=== PATIENT | female | born 1975 | race Caucasian/White ===

== ENCOUNTER 2023-10-14 11:40 | Emergency (ER) | payer OTHER, SELFPAY ==
[2023-10-14] VITALS (12 sets, daily range): BP systolic 123–141; BP diastolic 59–110; PULSE 70–100; RESP 20–28; TEMP 36.4–36.8; O2SAT 97–100
--- NOTE | 2023-10-14 11:44 | ECG_ITS ---
Measurements Intervals [place] Rate: 107 P: 59 TN: 136 QRS: 4 QRSD: 94 T: 46 QT: 358 QTc: 478 Interpretive Statements SINUS TACHYCARDIA ABNORMAL RHYTHM ECG BASELINE ARTIFACT PRESENT NO PREVIOUS ECG AVAILABLE FOR COMPARISON Electronically Signed On 10-14-2023 17:16:43 FILTER CLEANER by Ruth Pedraza M.D.
--- NOTE | 2023-10-14 12:02 | ED.ABDPAIN ---
HPI - Abdominal Pain General Chief Complaint: Abdominal Pain Stated Complaint: abdominal pain Time Seen by Provider: 10/14/23 11:44 Source: patient and family Mode of arrival: ambulatory Limitations: no limitations History of Present Illness HPI narrative: Patient is a 48-year-old diabetic type 2 using new injectable medicine as well as insulin. She took her injection last night around 1:30 a.m. and started with the abdominal pain and nausea. She is having pain across her chest abdomen area since the injection. The injection name is ItzMichael YOUNGER elicited complaint: abdominal pain Onset (ago): hour(s) (10) Pain Consistency: constant Location: chest, epigastric, LUQ, RUQ, RLQ and LLQ Severity: moderate Pain scale (0-10): 8 Quality: cramping, aching and sharp Radiation: none Migration to: no migration Exacerbating factors: nothing Relieving factors: nothing Context: confirms other ( patient has been using injection for 3 weeks) Associated symptoms: nausea and vomiting Related Data Patient : No Allergies Allergy/AdvReac Type Severity Reaction Status Date / Time No Known Allergies Allergy Verified 10/14/23 11:59 Review of Systems Review of Systems: All systems reviewed & are unremarkable except as noted in HPI and below Constitutional: Constitutional: Reports no additional constitutional complaints Eyes: Eyes: Reports no additional eye complaints ENT: Reports system reviewed and no additional complaints, except as documented Cardiovascular: Cardiovascular: Reports no additional cardiovascular complaints Respiratory: Respiratory: Reports no additional respiratory complaints Gastrointestinal: Gastrointestinal: Reports no additional gastrointestinal complaints Genitourinary: Genitourinary: Reports no additional female genitourinary complaints Musculoskeletal: Musculoskeletal: Reports no additional musculoskeletal complaints Integumentary/Breasts: Skin/Breast: Reports system reviewed and no additional complaints, except as docu Neurologic: Reports system reviewed and no additional complaints, except as documented Psychiatric: Psychiatric: Reports no additional psychiatric complaints Endocrine: Endocrine: Reports no additional endocrine complaints Hematologic/Lymphatic: Hematologic/Lymphatic: Reports no additional hematologic/lymphatic complaints Allergic/Immunologic: Allergic/Immunologic: Reports no additional allergic/immunologic complaints Exam Const: General: ill appearing Nutritional Appearance: well nourished Orientation/consciousness: patient oriented x3 Limitations: no limitations HENMT: Head: normal to inspection Ears: external ears normal Face/Nose/Sinus: Normal external nose present Eyes: Conjunctivae: conjunctivae normal Pupils: Equal, round and reactive pupils present EOM: EOMs intact bilaterally Neck: Neck: normal visual inspection Chest: Chest palpation & inspection: normal inspection of the chest Resp: Effort & Inspection: normal respiratory effort and not labored Auscultation: clear to auscultation bilaterally and no crackles Cardio: Rate: regular rate Rhythm: regular rhythm Heart sounds: no murmurs GI: Inspection: distended GI Palp: Yes Soft to palpation, Yes Tenderness to palpation present (GI) (diffusely), No Guarding due to palpation present (GI), No Rigid due to palpation, No Hernia present, No Palpable mass present and No Rebound tenderness present Auscultation: bowels sounds not normal and Hypoactive bowel sounds present : General: Yes bladder normal to palpation Back/Spine/Pelvis: Back: no CVA tenderness Skin: General skin exam: normal color Rashes: no rashes Wounds: no wounds Neuro: General: patient oriented x3 Cranial nerves: Yes Nystagmus not present Speech: normal speech Extrem: General: normal to inspection Psych: Mental Status: mental status grossly normal Affect: normal affect Attitude: cooperative Course Vital Signs Vital signs: V
[2023-10-14] MEDS: MAG HYDROX/ALUMINUM HYD/SIMETH 30 ML, PHENobarb/HYOSCY/ATROPINE/SCOP 32.4 MG, LIDOCAINE... PO (12:06)
[2023-10-14] MEDS: KETOROLAC 30 MG/ML VIAL (*BKC) IV PUSH (12:07)
[2023-10-14] MEDS: ONDANSETRON INJ 4 MG/2 ML VIAL IV PUSH (12:07)
[2023-10-14 12:22] LABS: INR 0.9; Partial Thromboplastin Time 22.2 SEC (23.90-30.70); Prothrombin Time 10.4 Seconds (9.50-12.10)
[2023-10-14 12:25] LABS: Basophils Absolute Auto 0.06 K/mm3 (0.00-0.10); Basophils Percent Auto 0.7 % (0.0-1.0); Eosinophils Absolute Auto 0.11 K/mm3 (0.02-0.50); Eosinophils Percent Auto 1.3 % (1.0-6.0); Hematocrit 30.3 % (35.0-49.0); Hemoglobin 9.9 g/dL (12.0-15.0); Immature Granulocyte Absolute 0.02 K/mm3 (0.00-0.00); Immature Granulocyte Percent A 0.2 % (0.0-0.0); Lymphocytes Absolute Auto 2.84 K/mm3 (1.10-4.50); Lymphocytes Percent Auto 33.5 % (18.0-42.0); Mean Corpuscular HGB Conc 32.7 g/dL (32.0-36.0); Mean Corpuscular Hemoglobin 26.6 pg (27.0-31.0); Mean Corpuscular Volume 81.5 fL (78.0-102.0); Mean Platelet Volume 9.6 fl (9.2-11.8); Monocytes Absolute Auto 0.67 K/mm3 (0.10-0.90); Monocytes Percent Auto 7.9 % (2.0-11.0); Neutrophils Absolute Auto 4.8 K/mm3 (1.7-7.2); Neutrophils Percent Auto 56.4 % (50.0-70.0); Platelet Count Result 330 K/mm3 (150-420); Red Blood Count 3.72 M/mm3 (4.20-5.40); Red Cell Distribution Width 12.8 % (11.6-14.4); White Blood Count 8.5 K/mm3 (4.8-10.8)
[2023-10-14 12:26] LABS: Alanine Aminotransferase 26 U/L (14-59); Albumin Level 3.7 g/dL (3.4-5.0); Alkaline Phosphatase 68 U/L (46-116); Anion Gap 12 mmol/L (8-16); Aspartate Amino Transferase 23 U/L (15-37); Bilirubin,Total 0.4 mg/dL (0.00-1.00); Blood Urea Nitrogen 37 mg/dL (7-18); Calcium 9.3 mg/dL (8.5-10.1); Carbon Dioxide 27 mmol/L (21-32); Chloride 96 mmol/L (98-108); Estimated CRCL calculation 34 ml/min; Estimated Glomerular Filt Rate 27; Glucose 193 mg/dL (70-99); Lactic Acid Reflex 2.8 mmol/L (0.4-2.0); Lipase 75 U/L (16-77); Magnesium 2.4 mg/dL (1.8-2.4); Osmolality Calculated 293 mOsm/kg (285-295); Potassium 3.4 mmol/L (3.5-5.1); Sodium 135 mmol/L (136-145); Total Protein 8.2 g/dL (6.4-8.2); Troponin I 9.6 ng/L (0.00-60.4)
[2023-10-14] MEDS: SODIUM CHLORIDE 0.9% IV 1,000 ML 999 ML IV CONT (12:42)
[2023-10-14 12:52] LABS: SARS-CoV-2 RNA PCR Negative (Negative)
[2023-10-14 12:53] LABS: Influenza A QL RT-PCR Negative (Negative); Influenza B QL RT-PCR Negative (Negative); RSV RNA, RT-PCR Negative (Negative)
--- NOTE | 2023-10-14 13:02 | PC.NURSE ---
pt resting per cot comfortably, eye closed. iv fluids infusing without difficulty.
[2023-10-14 13:54] LABS: Anion Gap 9 mmol/L (8-16); Blood Urea Nitrogen 38 mg/dL (7-18); Calcium 8.7 mg/dL (8.5-10.1); Carbon Dioxide 30 mmol/L (21-32); Chloride 97 mmol/L (98-108); Estimated CRCL calculation 35 ml/min; Estimated Glomerular Filt Rate 29; Glucose 181 mg/dL (70-99); Osmolality Calculated 296 mOsm/kg (285-295); Potassium 3.4 mmol/L (3.5-5.1); Sodium 136 mmol/L (136-145)
[2023-10-14 14:02] LABS: Lactic Acid Reflex 1.3 mmol/L (0.4-2.0)
[2023-10-14] MEDS: POTASSIUM CHLORIDE 20 MEQ ER TABLET PO (14:18)
== END 2023-10-14 14:25 | disposition home or self-care (01) ==
PROVIDERS: Emergency Provider Emergency Medicine
DX: N17.9 Acute kidney failure, unspecified (principal); E86.0 Dehydration; R11.2 Nausea with vomiting, unspecified; T38.3X5A Adverse effect of insulin and oral hypoglycemic [antidiabetic] drugs, initial encounter; I25.10 Atherosclerotic heart disease of native coronary artery without angina pectoris; Z20.822 Contact with and (suspected) exposure to COVID-19
CPT/HCPCS: 36415; 80048; 80053; 83605; 83690; 83735; 84484; 85025; 85610; 85730; 87637; 93005; 96361; 96374; 96375; 99284; A9270; J1885; J2405; J7030

== ENCOUNTER 2024-01-04 08:51 | Outpatient (CLI) | payer OTHER, SELFPAY ==
[2024-01-04 09:19] LABS: Basophils Absolute Auto 0.08 K/mm3 (0.00-0.10); Eosinophils Absolute Auto 0.28 K/mm3 (0.02-0.50); Eosinophils Percent Auto 3.6 % (1.0-6.0); Hematocrit 28.8 % (35.0-49.0); Hemoglobin 8.4 g/dL (12.0-15.0); Immature Granulocyte Absolute 0.02 K/mm3 (0.00-0.00); Immature Granulocyte Percent A 0.3 % (0.0-0.0); Lymphocytes Absolute Auto 2.17 K/mm3 (1.10-4.50); Lymphocytes Percent Auto 27.6 % (18.0-42.0); Mean Corpuscular HGB Conc 29.2 g/dL (32-36); Mean Corpuscular Hemoglobin 21.1 pg (27.0-31.0); Mean Corpuscular Volume 72.2 fL (78.0-102.0); Mean Platelet Volume 8.8 fl (9.2-11.8); Monocytes Absolute Auto 0.61 K/mm3 (0.10-0.90); Monocytes Percent Auto 7.8 % (2.0-11.0); Neutrophils Absolute Auto 4.71 K/mm3 (1.70-7.20); Neutrophils Percent Auto 59.7 % (50.0-70.0); Platelet Count Result 359 K/mm3 (150-420); Red Blood Count 3.99 M/mm3 (4.20-5.40); Red Cell Distribution Width 16.1 % (11.6-14.4); White Blood Count 7.9 K/mm3 (4.8-10.8)
[2024-01-04 09:43] LABS: Creatinine Urine 32.94 mg/dL (40-278)
[2024-01-04 09:59] LABS: Alanine Aminotransferase 27 U/L (14-59); Albumin Level 3.1 g/dL (3.4-5.0); Alkaline Phosphatase 75 U/L (46-116); Anion Gap 8 mmol/L (8-16); Aspartate Amino Transferase 25 U/L (15-37); Bilirubin,Total 0.2 mg/dL (0.00-1.00); Blood Urea Nitrogen 26 mg/dL (7-18); Calcium 8.3 mg/dL (8.5-10.1); Carbon Dioxide 27 mmol/L (21-32); Chloride 100 mmol/L (98-108); Cholesterol 232 mg/dL (0-200); Estimated Glomerular Filt Rate 46; Glucose 288 mg/dL (70-99); HDL Direct 45 mg/dL (40-60); LDL Cholesterol Calculated 133 mg/dL (<130); Osmolality Calculated 295 mOsm/kg (285-295); Potassium 4.6 mmol/L (3.5-5.1); Sodium 135 mmol/L (136-145); Triglycerides 271 mg/dL (0-150)
[2024-01-04 10:00] LABS: Hemoglobin A1C > 13.7 % (<5.7); MALB Creatinine Ratio 442.6 mg/g (0-30); Microalbumin Urine Random 145.8 mg/L
[2024-01-04 10:19] LABS: Thyroid Stimulating Hormone Reflex 2.36 u/IU/mL (0.36-3.74)
[2024-01-07 07:24] LABS: Magnesium 2.4 mg/dL (1.8-2.4)
== END 2024-01-04 08:52 | disposition home or self-care (01) ==
LOC: CHSLAB 08:55
PROVIDERS: PCP Family Medicine; Visit Provider Family Medicine
DX: E11.9 Type 2 diabetes mellitus without complications (principal); I51.9 Heart disease, unspecified; M62.838 Other muscle spasm; E03.9 Hypothyroidism, unspecified
CPT/HCPCS: 36415; 80053; 80061; 82043; 83036; 83735; 84443; 85025

== ENCOUNTER 2024-01-31 12:22 | Outpatient (CLI) | payer OTHER, SELFPAY | END 2024-01-31 12:23 | disposition home or self-care (01) | LOC: CHSIMG 12:25 | PROVIDERS: PCP Family Medicine; Visit Provider Family Medicine | DX: M25.562 Pain in left knee (principal); M25.561 Pain in right knee | CPT/HCPCS: 73562 ==

== ENCOUNTER 2024-03-12 07:56 | Outpatient (CLI) | payer OTHER, SELFPAY ==
[2024-03-12 08:35] LABS: Basophils Absolute Auto 0.07 K/mm3 (0.00-0.10); Eosinophils Absolute Auto 0.31 K/mm3 (0.02-0.50); Eosinophils Percent Auto 4.5 % (1.0-6.0); Hemoglobin 12.2 g/dL (12.0-15.0); Immature Granulocyte Absolute 0.02 K/mm3 (0.00-0.00); Immature Granulocyte Percent A 0.3 % (0.0-0.0); Lymphocytes Absolute Auto 2.68 K/mm3 (1.10-4.50); Lymphocytes Percent Auto 38.8 % (18.0-42.0); Mean Corpuscular HGB Conc 32.1 g/dL (32-36); Mean Corpuscular Hemoglobin 26.9 pg (27.0-31.0); Mean Corpuscular Volume 83.9 fL (78.0-102.0); Mean Platelet Volume 9.7 fl (9.2-11.8); Monocytes Absolute Auto 0.54 K/mm3 (0.10-0.90); Monocytes Percent Auto 7.8 % (2.0-11.0); Neutrophils Absolute Auto 3.28 K/mm3 (1.70-7.20); Neutrophils Percent Auto 47.6 % (50.0-70.0); Platelet Count Result 229 K/mm3 (150-420); Red Blood Count 4.53 M/mm3 (4.20-5.40); Red Cell Distribution Width 22.1 % (11.6-14.4); White Blood Count 6.9 K/mm3 (4.8-10.8)
[2024-03-12 08:38] LABS: Hemoglobin A1C 10.8 % (<5.7)
[2024-03-12 09:18] LABS: Alanine Aminotransferase 77 U/L (14-59); Albumin Level 3.7 g/dL (3.4-5.0); Alkaline Phosphatase 78 U/L (46-116); Anion Gap 9 mmol/L (4-12); Aspartate Amino Transferase 38 U/L (15-37); Bilirubin,Total 0.3 mg/dL (0.00-1.00); Blood Urea Nitrogen 40 mg/dL (7-18); Calcium 8.9 mg/dL (8.5-10.1); Carbon Dioxide 29 mmol/L (21-32); Chloride 96 mmol/L (98-108); Cholesterol 165 mg/dL (0-200); Estimated Glomerular Filt Rate 24; Glucose 334 mg/dL (70-99); HDL Direct 46 mg/dL (40-60); LDL Cholesterol Calculated 70 mg/dL (<130); Osmolality Calculated 300 mOsm/kg (285-295); Potassium 5.2 mmol/L (3.5-5.1); Sodium 134 mmol/L (136-145); Total Protein 7.6 g/dL (6.4-8.2); Triglycerides 243 mg/dL (0-150)
[2024-03-12 09:20] LABS: Thyroid Stimulating Hormone Reflex 3.44 u/IU/mL (0.36-3.74)
== END 2024-03-12 07:57 | disposition home or self-care (01) ==
LOC: CHSLAB 08:02
PROVIDERS: PCP Family Medicine; Visit Provider Internal Medicine Cardiovascular Disease
DX: E78.5 Hyperlipidemia, unspecified (principal)
CPT/HCPCS: 36415; 80053; 80061; 83036; 83735; 84443; 85025

== ENCOUNTER 2025-07-02 15:02 | Outpatient (CLI) | payer OTHER, SELFPAY ==
[2025-07-02 16:05] LABS: Alanine Aminotransferase 55 U/L (6-35); Albumin Level 3.9 g/dL (3.5-5.1); Alkaline Phosphatase 70 U/L (38-126); Aspartate Amino Transferase 51 U/L (14-36); Bilirubin,Total 0.8 mg/dL (0.2-1.3); Total Protein 6.4 g/dL (6.3-8.2)
[2025-07-02 16:09] LABS: Iron 155 ug/dL (37-170)
[2025-07-02 16:19] LABS: Percent Iron Saturation 53 % (20-50)
--- OUTSIDE RECORDS SUMMARY | 2025-07-02 16:36 | XMS_ITS | Encounter Summary ---
Author Organization [employer] Address [address] [place] [address] Care Team Providers Care Blow Off Worker Name Role Phone Jordon Dennis DO Primary Care Provider [phone] Encounter Details Date Type Department Care Team (Late st Contact Info) Description 03/27/2003 Outpatient Historical [facility] Internal Medicine [address] [place] [address] Chip Ruiz MD [address] [facility] [address] [place] [address] Social History Tobacco Use Types Packs/Day Years Used Date Smoking Tobacco: Never Assessed Comments Unknown Sex and Gender Information Value Date Recorded Sex Assigned at Female 08/29/2023 2:58 PM CERTIFIED NURSE MIDWIFE Legal Sex Female 1:55 AM CERTIFIED NURSE MIDWIFE Gender Identity Female 08/29/2023 2:58 PM CERTIFIED NURSE MIDWIFE Sexual Orientation Straight 08/29/2023 2: 58 PM CERTIFIED NURSE MIDWIFE documented as of this encounter Plan of Treatment Not on file documented as of this encounter Visit Diagnoses Not on filedocumented in this encounter Additional Health Concerns Infection Onset Date Last Indicated Resolved Time R/O C. diff 02/28/2024 02/28/2024 02/29/2024 8:13 AM CDT documented as of this encounter Care Teams Blow Off Worker Relationship Specialty Start Date End Date Jordon Dennis DO [address] [place] [address] PCP - General Family Practice 02/26/24 documented as of this encounter
--- OUTSIDE RECORDS SUMMARY | 2025-07-02 16:36 | XMS_ITS | Encounter Summary ---
Author Organization [email or web address] Address [address] [place] [address] Care Team Providers Care Pharmacist Per Diem Name Role Phone Jordon Dennis DO Primary Care Provider [phone] Encounter Details Date Type Department Care Team (Late st Contact Info) Description 03/27/2003 Outpatient Historical [facility] Internal Medicine [address] [place] [address] Chip Ruiz MD [address] [facility] [address] [place] [address] Social History Tobacco Use Types Packs/Day Years Used Date Smoking Tobacco: Never Assessed Comments Unknown Sex and Gender Information Value Date Recorded Sex Assigned at Female 08/29/2023 2:58 PM DIRECTOR OF EMPLOYEE DEVELOPMENT Legal Sex Female 1:55 AM DIRECTOR OF EMPLOYEE DEVELOPMENT Gender Identity Female 08/29/2023 2:58 PM DIRECTOR OF EMPLOYEE DEVELOPMENT Sexual Orientation Straight 08/29/2023 2: 58 PM DIRECTOR OF EMPLOYEE DEVELOPMENT documented as of this encounter Plan of Treatment Not on file documented as of this encounter Visit Diagnoses Not on filedocumented in this encounter Additional Health Concerns Infection Onset Date Last Indicated Resolved Time R/O C. diff 02/28/2024 02/28/2024 02/29/2024 8:13 AM CDT documented as of this encounter Care Teams Pharmacist Per Diem Relationship Specialty Start Date End Date Jordon Dennis DO [address] [place] [address] PCP - General Family Practice 02/26/24 documented as of this encounter
--- OUTSIDE RECORDS SUMMARY | 2025-07-02 16:36 | XMS_ITS | Clinical Summary ---
Author Organization [facility] Address [facility] [place] [address] Care Team Providers Care Cafeteria Team Leader Name Role Phone Himanshu Yarbrough MD Primary Care Provider [phone] Allergies Active Allergy Reactions Criticality Noted Date Comments Vancomycin Other (see comment) 07/17/2024 Red man syndrome Medications atorvastatin (LIPITOR) 40 MG tablet Take 2 tablets (80 mg total) by mouth daily. 4 Active carvedilol (COREG) 12.5 MG tablet Take 0.5 tablets (6.25 mg total) by mouth daily. 4 Active clopidogrel (PLAVIX) 75 MG tablet Take 1 tablet (75 mg total) by mouth daily. 4 Active ezetimibe (ZETIA) 10 MG tablet Take 1 tablet (10 mg total) by mouth daily. 4 Active fexofenadine (ANNABEL) 180 MG tablet Take 1 tablet (180 mg total) by mouth daily. Active aspirin EC (ECOTRIN) 81 MG tablet Take 1 tablet (81 mg total) by mouth daily. Active insulin glargine (LANTUS) 100 UNIT/ML injection (PEN) Inject 65 Units into the skin nightly at bedtime. Active vitamin B-12 (CYANOCOBALAMIN ) 1000 MCG tablet Take 2.5 tablets (2,500 mcg total) by mouth daily. Active gabapentin (NEURONTIN) 300 MG capsule Take 1 capsule (300 mg total) by mouth daily. Active HUMULIN 70/30 KWIKPEN (70-30) 100 UNIT/ML injection (pen) Use as directed 4 Active empagliflozin (JARDIANCE) 10 MG tablet Take 1 tablet (10 mg total) by mouth daily. Active losartan (COZAAR) 100 MG tablet Take 1 tablet (100 mg total) by mouth daily. Active levonorgestrel (MIRENA, 52 MG,) 20 MCG/DAY IUD 1 Intra Uterine Device by Intrauterine route once. Active pantoprazole EC (PROTONIX) 40 MG tablet Take 1 tablet (40 mg total) by mouth daily. Active spironolactone (ALDACTONE) 25 MG tablet Take 1 tablet (25 mg total) by mouth daily. Active torsemide (DEMADEX) 20 MG tablet Take 1 tablet (20 mg total) by mouth daily. Active Active Problems Problem Noted Date Diagnosed Date Lymphedema 01/25/2024 Social History Tobacco Use Types Packs/Day Years Used Date Smoking Tobacco: Never Smokeless Tobacco: Never Tobacco Cessation:Counseling Given: Not Answered Alcohol Use Standard Drinks/Week Comments Not Currently 0 (1 standard drink = 0.6 oz pur e alcohol) Comments No Sex and Gender Information Value Date Recorded Sex Assigned at Not on file Legal Sex Female 1:12 PM CDT Gender Identity Not on file Sexual Orientation Not on file Last Filed Vital Signs Vital Sign Reading Time Taken Comments Blood Pressure 155/79 07/24/2024 10:17 AM CDT Pulse 78 07/24/2024 10:17 AM CDT Temperature 36.4 C (97.6 F) 07/24/2024 10:02 AM CDT Respiratory Rate 16 07/24/2024 10:17 AM CDT Oxygen Saturation 99% 07/24/2024 10:17 AM CDT Inhaled Oxygen Concentration - - Weight 90.7 kg (200 lb) 07/18/2024 12:07 PM CDT Height 157.5 cm (5' 2) 07/18/2024 12:07 PM CDT Body Mass Index 36.58 07/18/2024 12:07 PM CDT Plan of Treatment Health Maintenance Due Date Last Done Comments Cervical Cancer Screening Pap Smear (Age 30 to 64) Every 3 Years 1976 Annual Physical 1979 Hepatitis C 1994 Hepatitis B Vaccines (2 of 3 - 19+ 3-dose series) 03/17/2005 02/17/2005 Cervical Cancer Screening Pap with HPV Testing (Age 30 to 64) Every 5 Years 2006 Cervical Cancer Screening with HPV 2006 COVID-19 Vaccine ( season) 2025 Mammogram Screening 09/10/2025 09/10/2023, 03/23/2021, 12/04/2018, Additional history exists DTaP, Tdap and Td Vaccines (2 - Td or Tdap) 08/30/2033 08/30/2023 Colorectal Cancer Screening Colonoscopy (10 Years) 07/24/2034 07/24/2024, 07/24/2024 Pneumococcal Vaccine: Pediatrics (0 to 5 Years) and At-Risk Patients (6 to 49 Years) Aged Out 08/30/2023 No longer eligible based on patient's age to complete this topic Meningococcal B Vaccine Aged Out No l onger eligible based on patient's age to complete this topic Meningococcal Vaccine Aged Out No elfego levar eligible based on patient's age to complete this topic RSV Immunizations Under 20 Months Aged Out No longer eligible based on patient's age to complete this topic Procedures Procedure Name Priority Date/Time Associated Diagnosis Comments COLONOSCOPY 07/24/2024 6:58 AM CDT from Last 3 Months or Most Recently Relevant to Health Maintenance Results * Colonoscopy (07/24/2024 6:58 AM CDT) Henok Bonilla MD GI PROCEDURE ORDERABLES Final Result from Last 3 Months or Most Recently Relevant to Health Maintenance [place] [address] [place] [address] Care Teams Cafeteria Team Leader Relationship Specialty Start Date End Date Himanshu Yarbrough MD [address] [place] [address] PCP - General INTERNAL MEDICINE 07/24/24
--- OUTSIDE RECORDS SUMMARY | 2025-07-02 16:36 | XMS_ITS | Encounter Summary ---
Author Organization [employer] Address [address] [place] [address] Care Team Providers Care Histopathology Technician Name Role Phone Jordon Dennis DO Primary Care Provider [phone] Encounter Details Date Type Department Care Team (Late st Contact Info) Description 03/27/2003 Outpatient Historical [facility] Internal Medicine [address] [place] [address] Chip Ruiz MD [address] [facility] [address] [place] [address] Social History Tobacco Use Types Packs/Day Years Used Date Smoking Tobacco: Never Assessed Comments Unknown Sex and Gender Information Value Date Recorded Sex Assigned at Female 08/29/2023 2:58 PM FRAME OPENER Legal Sex Female 1:55 AM FRAME OPENER Gender Identity Female 08/29/2023 2:58 PM FRAME OPENER Sexual Orientation Straight 08/29/2023 2: 58 PM FRAME OPENER documented as of this encounter Plan of Treatment Not on file documented as of this encounter Visit Diagnoses Not on filedocumented in this encounter Additional Health Concerns Infection Onset Date Last Indicated Resolved Time R/O C. diff 02/28/2024 02/28/2024 02/29/2024 8:13 AM CDT documented as of this encounter Care Teams Histopathology Technician Relationship Specialty Start Date End Date Jordon Dennis DO [address] [place] [address] PCP - General Family Practice 02/26/24 documented as of this encounter
--- OUTSIDE RECORDS SUMMARY | 2025-07-02 16:36 | XMS_ITS | Encounter Summary ---
Author Organization [employer] Address [address] [place] [address] Care Team Providers Care Cloth Finishing Range Operator Chief Name Role Phone Jordon Dennis DO Primary Care Provider [phone] Encounter Details Date Type Department Care Team (Late st Contact Info) Description 03/27/2003 Outpatient Historical [facility] Internal Medicine [address] [place] [address] Chip Ruiz MD [address] [facility] [address] [place] [address] Social History Tobacco Use Types Packs/Day Years Used Date Smoking Tobacco: Never Assessed Comments Unknown Sex and Gender Information Value Date Recorded Sex Assigned at Female 08/29/2023 2:58 PM SOIL SURVEYOR Legal Sex Female 1:55 AM SOIL SURVEYOR Gender Identity Female 08/29/2023 2:58 PM SOIL SURVEYOR Sexual Orientation Straight 08/29/2023 2: 58 PM SOIL SURVEYOR documented as of this encounter Plan of Treatment Not on file documented as of this encounter Visit Diagnoses Not on filedocumented in this encounter Additional Health Concerns Infection Onset Date Last Indicated Resolved Time R/O C. diff 02/28/2024 02/28/2024 02/29/2024 8:13 AM CDT documented as of this encounter Care Teams Cloth Finishing Range Operator Chief Relationship Specialty Start Date End Date Jordon Dennis DO [address] [place] [address] PCP - General Family Practice 02/26/24 documented as of this encounter
--- OUTSIDE RECORDS SUMMARY | 2025-07-02 16:36 | XMS_ITS | Encounter Summary ---
Author Organization [employer] Address [address] [place] [address] Care Team Providers Care Plasterer Apprentice Name Role Phone Jordon Dennis DO Primary Care Provider [phone] Encounter Details Date Type Department Care Team (Latest Contact Info) Description 03/27/2003 Outpatient Historical [facility], [address] Chip Ruiz MD [address] [place] [address] [place] [address] OTHER SPECIFIED HYPOGLYCEMIA (Primary Dx) Social History Tobacco Use Types Packs/Day Years Used Date Smoking Tobacco: Never Assessed Comments Unknown Sex and Gender Information Value Date Recorded Sex Assigned at Female 08/29/2023 2:58 PM HOTEL RESERVATION AGENT Legal Sex Female 1:55 AM HOTEL RESERVATION AGENT Gender Identity Female 08/29/2023 2:58 PM HOTEL RESERVATION AGENT Sexual Orientation Straight 08/29/2023 2: 58 PM HOTEL RESERVATION AGENT documented as of this encounter Plan of Treatment Not on file documented as of this encounter Visit Diagnoses Diagnosis Other specified hypoglycemia- Primary documented in this encounter Additional Health Concerns Infection Onset Date Last Indicated Resolved Time R/O C. diff 02/28/2024 02/28/2024 02/29/2024 8:13 AM CDT documented as of this encounter Care Teams Plasterer Apprentice Relationship Specialty Start Date End Date Jordon Dennis DO [address] [place] [address] PCP - General Family Practice 02/26/24 documented as of this encounter
--- OUTSIDE RECORDS SUMMARY | 2025-07-02 16:36 | XMS_ITS | Encounter Summary ---
Author Organization [employer] Address [address] [place] [address] Care Team Providers Care Urologist Name Role Phone Jordon Dennis DO Primary Care Provider [phone] Encounter Details Date Type Department Care Team (Late st Contact Info) Description 03/27/2003 Outpatient Historical [facility] Internal Medicine [address] [place] [address] Chip Ruiz MD [address] [facility] [address] [place] [address] Social History Tobacco Use Types Packs/Day Years Used Date Smoking Tobacco: Never Assessed Comments Unknown Sex and Gender Information Value Date Recorded Sex Assigned at Female 08/29/2023 2:58 PM CONTOUR BAND SAW OPERATOR VERTICAL Legal Sex Female 1:55 AM CONTOUR BAND SAW OPERATOR VERTICAL Gender Identity Female 08/29/2023 2:58 PM CONTOUR BAND SAW OPERATOR VERTICAL Sexual Orientation Straight 08/29/2023 2: 58 PM CONTOUR BAND SAW OPERATOR VERTICAL documented as of this encounter Plan of Treatment Not on file documented as of this encounter Visit Diagnoses Not on filedocumented in this encounter Additional Health Concerns Infection Onset Date Last Indicated Resolved Time R/O C. diff 02/28/2024 02/28/2024 02/29/2024 8:13 AM CDT documented as of this encounter Care Teams Urologist Relationship Specialty Start Date End Date Jordon Dennis DO [address] [place] [address] PCP - General Family Practice 02/26/24 documented as of this encounter
--- OUTSIDE RECORDS SUMMARY | 2025-07-02 16:36 | XMS_ITS | Encounter Summary ---
Author Organization [employer] Address [address] [place] [address] Care Team Providers Care Flask Handler Name Role Phone Jordon Dennis DO Primary Care Provider [phone] Encounter Details Date Type Department Care Team (Late st Contact Info) Description 03/27/2003 Outpatient Historical [facility] Internal Medicine [address] [place] [address] Chip Ruiz MD [address] [facility] [address] [place] [address] Social History Tobacco Use Types Packs/Day Years Used Date Smoking Tobacco: Never Assessed Comments Unknown Sex and Gender Information Value Date Recorded Sex Assigned at Female 08/29/2023 2:58 PM SUPPORT GROUP MANAGER Legal Sex Female 1:55 AM SUPPORT GROUP MANAGER Gender Identity Female 08/29/2023 2:58 PM SUPPORT GROUP MANAGER Sexual Orientation Straight 08/29/2023 2: 58 PM SUPPORT GROUP MANAGER documented as of this encounter Plan of Treatment Not on file documented as of this encounter Visit Diagnoses Not on filedocumented in this encounter Additional Health Concerns Infection Onset Date Last Indicated Resolved Time R/O C. diff 02/28/2024 02/28/2024 02/29/2024 8:13 AM CDT documented as of this encounter Care Teams Flask Handler Relationship Specialty Start Date End Date Jordon Dennis DO [address] [place] [address] PCP - General Family Practice 02/26/24 documented as of this encounter
--- OUTSIDE RECORDS SUMMARY | 2025-07-02 16:36 | XMS_ITS | Encounter Summary ---
Author Organization [employer] [facility] Address [address] [place] [address] Care Team Providers Care Panelbeater Name Role Phone Jordon Dennis DO Primary Care Provider [phone] Encounter Details Date Type Department Care Team (Late st Contact Info) Description 05/08/2003 Outpatient Historical [facility] Internal Medicine [address] [place] [address] Chip Ruiz MD [address] [facility] [address] [place] [address] Social History Tobacco Use Types Packs/Day Years Used Date Smoking Tobacco: Never Assessed Comments Unknown Sex and Gender Information Value Date Recorded Sex Assigned at Female 08/29/2023 2:58 PM SALT REFINER Legal Sex Female 1:55 AM SALT REFINER Gender Identity Female 08/29/2023 2:58 PM SALT REFINER Sexual Orientation Straight 08/29/2023 2: 58 PM SALT REFINER documented as of this encounter Plan of Treatment Not on file documented as of this encounter Visit Diagnoses Not on filedocumented in this encounter Additional Health Concerns Infection Onset Date Last Indicated Resolved Time R/O C. diff 02/28/2024 02/28/2024 02/29/2024 8:13 AM CDT documented as of this encounter Care Teams Panelbeater Relationship Specialty Start Date End Date Jordon Dennis DO [address] [place] [address] PCP - General Family Practice 02/26/24 documented as of this encounter
--- OUTSIDE RECORDS SUMMARY | 2025-07-02 16:36 | XMS_ITS | Encounter Summary ---
Author Organization [employer] Address [address] [place] [address] Care Team Providers Care Reservation Sales Agent Name Role Phone Jordon Dennis DO Primary Care Provider [phone] Encounter Details Date Type Department Care Team (Late st Contact Info) Description 03/27/2003 Outpatient Historical [facility] Internal Medicine [address] [place] [address] Chip Ruiz MD [address] [facility] [address] [place] [address] Social History Tobacco Use Types Packs/Day Years Used Date Smoking Tobacco: Never Assessed Comments Unknown Sex and Gender Information Value Date Recorded Sex Assigned at Female 08/29/2023 2:58 PM BLIND LACER Legal Sex Female 1:55 AM BLIND LACER Gender Identity Female 08/29/2023 2:58 PM BLIND LACER Sexual Orientation Straight 08/29/2023 2: 58 PM BLIND LACER documented as of this encounter Plan of Treatment Not on file documented as of this encounter Visit Diagnoses Not on filedocumented in this encounter Additional Health Concerns Infection Onset Date Last Indicated Resolved Time R/O C. diff 02/28/2024 02/28/2024 02/29/2024 8:13 AM CDT documented as of this encounter Care Teams Reservation Sales Agent Relationship Specialty Start Date End Date Jordon Dennis DO [address] [place] [address] PCP - General Family Practice 02/26/24 documented as of this encounter
--- OUTSIDE RECORDS SUMMARY | 2025-07-02 16:36 | XMS_ITS | Encounter Summary ---
Author Organization [employer] [facility] Address [address] [place] [address] Care Team Providers Care Energy Efficient Site Manager Name Role Phone Jordon Dennis DO Primary Care Provider [phone] Encounter Details Date Type Department Care Team (Late st Contact Info) Description 05/08/2003 Outpatient Historical [facility] Internal Medicine [address] [place] [address] Chip Ruiz MD [address] [facility] [address] [place] [address] Social History Tobacco Use Types Packs/Day Years Used Date Smoking Tobacco: Never Assessed Comments Unknown Sex and Gender Information Value Date Recorded Sex Assigned at Female 08/29/2023 2:58 PM SPINNING DOFFER Legal Sex Female 1:55 AM SPINNING DOFFER Gender Identity Female 08/29/2023 2:58 PM SPINNING DOFFER Sexual Orientation Straight 08/29/2023 2: 58 PM SPINNING DOFFER documented as of this encounter Plan of Treatment Not on file documented as of this encounter Visit Diagnoses Not on filedocumented in this encounter Additional Health Concerns Infection Onset Date Last Indicated Resolved Time R/O C. diff 02/28/2024 02/28/2024 02/29/2024 8:13 AM CDT documented as of this encounter Care Teams Energy Efficient Site Manager Relationship Specialty Start Date End Date Jordon Dennis DO [address] [place] [address] PCP - General Family Practice 02/26/24 documented as of this encounter
--- OUTSIDE RECORDS SUMMARY | 2025-07-02 16:36 | XMS_ITS | Encounter Summary ---
Author Organization [facility] Address [address] [place] [address] Care Team Providers Care Member Certification Manager Name Role Phone Jordon Dennis DO Primary Care Provider [phone] Encounter Details Date Type Department Care Team (Late st Contact Info) Description 03/27/2003 Outpatient Historical [facility] [place] [facility] [address] [place] [address] Chip Ruiz MD [address] [facility] [address] [place] [address] Social History Tobacco Use Types Packs/Day Years Used Date Smoking Tobacco: Never Assessed Comments Unknown Sex and Gender Information Value Date Recorded Sex Assigned at Female 08/29/2023 2:58 PM STEEL FABRICATING SUPERVISOR Legal Sex Female 1:55 AM STEEL FABRICATING SUPERVISOR Gender Identity Female 08/29/2023 2:58 PM STEEL FABRICATING SUPERVISOR Sexual Orientation Straight 08/29/2023 2: 58 PM STEEL FABRICATING SUPERVISOR documented as of this encounter Plan of Treatment Not on file documented as of this encounter Visit Diagnoses Not on filedocumented in this encounter Additional Health Concerns Infection Onset Date Last Indicated Resolved Time R/O C. diff 02/28/2024 02/28/2024 02/29/2024 8:13 AM CDT documented as of this encounter Care Teams Member Certification Manager Relationship Specialty Start Date End Date Jordon Dennis DO [address] [place] [address] PCP - General Family Practice 02/26/24 documented as of this encounter
--- OUTSIDE RECORDS SUMMARY | 2025-07-02 16:36 | XMS_ITS | Encounter Summary ---
Author Organization [facility] [facility] Address [address] [place] [address] Care Team Providers Care File Clerk Name Role Phone Jordon Dennis DO Primary Care Provider [phone] Encounter Details Date Type Department Care Team (Late st Contact Info) Description 05/08/2003 Outpatient Historical [facility] [address] [place] [address] Chip Ruiz MD [address] [facility] [address] [place] [address] Social History Tobacco Use Types Packs/Day Years Used Date Smoking Tobacco: Never Assessed Comments Unknown Sex and Gender Information Value Date Recorded Sex Assigned at Female 08/29/2023 2:58 PM PILE DRIVER OPERATOR [employer] Legal Sex Female 1:55 AM PILE DRIVER OPERATOR [employer] Gender Identity Female 08/29/2023 2:58 PM PILE DRIVER OPERATOR [employer] Sexual Orientation Straight 08/29/2023 2: 58 PM PILE DRIVER OPERATOR [employer] documented as of this encounter Plan of Treatment Not on file documented as of this encounter Visit Diagnoses Not on filedocumented in this encounter Additional Health Concerns Infection Onset Date Last Indicated Resolved Time R/O C. diff 02/28/2024 02/28/2024 02/29/2024 8:13 AM CDT documented as of this encounter Care Teams File Clerk Relationship Specialty Start Date End Date Jordon Dennis DO [address] [place] [address] PCP - General Family Practice 02/26/24 documented as of this encounter
--- OUTSIDE RECORDS SUMMARY | 2025-07-02 16:36 | XMS_ITS | Clinical Summary ---
Author Organization [facility] Address [address] [facility] Attn: [place] [address] Care Team Providers Care It Operations Analyst Name Role Phone Jordon Dennis DO Primary Care Provider [phone] Allergies Active Allergy Reactions Criticality Noted Date Comments Azithromycin Anaphylaxis,[place] ma,H leanna,Hypertension,Itchin g,Nausea and Vomiting,Palpitations,Ra sh,Shortness of Breath/Wheezing,Swelling ,Weakness High 10/07/2016 Clindamycin Shortness of Breath/Wheezing High 01/04/2015 Reaction: Vomiting, chills, Severe nausea/headache/neck pain Codeine Swelling Medium 11/05/2007 Vancomycin Itching,Other (See Comments),Nausea and Vomiting Medium 01/02/2015 Reaction: Vomiting, chills, , Reaction: Nausea, Vomiting, Hot flashes, lightheadedness, severe itching Medications aspirin (ECOTRIN EC) 81 mg Tablet, Delayed Release (E.C.) Take 1 Tablet (81 mg) by mouth daily. 03/05/20 24 Active carvediloL (COREG) 6.25 mg tabletIndication s:Primary hypertension Take 1 Tablet (6.25 mg) by mouth 2 times daily. 180 Tablet 03/05/20 24 Active clopidogreL (PLAVIX) 75 mg TabletIndication s:history of deep vein thrombosis Take 1 Tablet (75 mg) by mouth daily. 90 Tablet 03/05/20 Active empagliflozin (JARDIANCE) 25 mg tabletIndication s:Type 2 diabetes mellitus with hyperglycemia, with long-term current use of insulin ([facility]) Take 1 Tablet (25 mg) by mouth daily in the morning. 100 Tablet 3 03/05/20 Active ezetimibe (ZETIA) 10 mg tabletIndication s:hyperlipidemia Take 1 Tablet (10 mg) by mouth daily. 90 Tablet 03/05/20 Active insulin lispro (HumaLOG,ADMELOG ) 100 units/mL injection High-dose Regimen Insulin Sliding Scale 4 units subcutaneously for fingerstick blood glucose 120-160 milligram/decilite r 7 units subcutaneously for fingerstick blood glucose 161-200 milligram/decilite r 11 units subcutaneously for fingerstick blood glucose 201-240 milligram/decilite r 15 units subcutaneously for fingerstick blood glucose 241-280 milligram/decilite r 19 units subcutaneously for fingerstick blood glucose 281-320 milligram/decilite r 24 units subcutaneously for fingerstick blood glucose > 321 milligram/decilite r 3 mL 03/05/20 Active Additional Information Patient not taking.Reported on 04/11/2024 acetaminophen (TYLENOL) 325 mg tablet Take 2 Tablets (650 mg) by mouth every 6 hours as needed for Other (See Comment) (See admin instructions). 03/05/20 Active cholecalciferol, Vitamin D3, 50 mcg (2,000 unit) Tablet Take 1 Tablet (2,000 Units) by mouth daily. 03/05/20 Active Additional Information Patient not taking.Reported on 04/11/2024 famotidine (PEPCID) 20 mg tablet Take 1 Tablet (20 mg) by mouth daily. 03/06/20 Active Additional Information Patient not taking.Reported on 04/11/2024 ibuprofen (MOTRIN) 200 mg tablet Take 1 Tablet (200 mg) by mouth every 6 hours as needed for Pain, Mild. With food or antacid 03/05/20 Active Additional Information Patient not taking.Reported on 04/11/2024 loratadine (CLARITIN) 10 mg tablet Take 1 Tablet (10 mg) by mouth daily. 03/06/20 Active Additional Information Patient not taking.Reported on 04/11/2024 SUMAtriptan (IMITREX) 50 mg tablet Take 0.5 Tablets (25 mg) by mouth every 2 hours as needed for Migraine. may repeat in 2 hours; max dose 200mg in 24 hours 30 Tablet 1 03/05/20 Active tiZANidine (ZANAFLEX) 2 mg Tablet Take 1 Tablet (2 mg) by mouth every 8 hours as needed for Spasm. 60 Tablet 03/05/20 Active traZODone (DESYREL) 50 mg tablet Take 0.5 Tablets (25 mg) by mouth nightly as needed for Insomnia or Other (See Comment) (Anxiety). 20 Tablet 03/05/20 Active insulin glargine (Basaglar KwikPen U-100 Insulin) 100 unit/mL pen syringe Inject 25 Units by subcutaneous injection daily. 15 mL 03/05/20 Active Additional Information Patient not taking.Reported on 04/11/2024 ferrous sulfate 325 mg (65 mg iron) tablet 325 MG ORALLY DAILY 03/26/20 Active atorvastatin (LIPITOR) 80 mg tablet Take 1 Tablet by mouth daily. 02/18/20 Active losartan (COZAAR) 100 mg tablet 100 mg. Active spironolactone (ALDACTONE) 25 mg tablet Take 1 Tablet by mouth daily. 02/18/20 Active NovoLIN 70-30 FlexPen U-100 100 unit/mL (70-30) pen syringe INJECT 25 UNITS SUBCUTANEOUSLY AM AND 15 UNITS IN THE EVENING 02/13/20 Active torsemide (DEMADEX) 20 mg tablet Take 1 Tablet by mouth 2 times daily. 02/18/20 Active ubidecarenone (COENZYME Q10 ORAL) Take by mouth. Activ e fexofenadine HCl (ANNABEL ORAL) Take by mouth. Active hydrALAZINE (APRESOLINE) 10 mg tablet Take 10 mg by mouth 2 times daily. Active gabapentin (NEURONTIN) 300 mg capsule 300 mg daily at bedtime. Active Active Problems Problem Noted Date Diagnosed Date Seizure 02/26/2024 Acute metabolic encephalopathy 02/26/2024 Acute right-sided weakness 02/26/2024 Numbness and tingling of left side of face 02/24 Lymphedema of right lower extremity 10/02/2023 Personal history of DVT (deep vein thrombosis) 1 12/03/2022 Cellulitis of right leg 09/11/2023 Type 2 diabetes mellitus wit h stage 3 chronic kidney disease, with long-term current use of insulin 08/30/2023 WILBERT (generalized anxiety disorder) 08/30/2023 Hyperlipidemia 08/30/2023 IBS (irritable bowel syndrome) 08/30/2023 Hypertension 08/30/2023 GERD (gastroesophageal reflux disease) History of CT (myocardial infarction) 08/30/2023 S/P coronary artery stent placement 08/30/2023 Chronic pansinusitis 08/30/2023 Breast asymmetry 08/30/2023 Abnormal screening mammogram 08/30/2023 Right groin pain 08/30/2023 Right hip pain 08/30/2023 Atherosclerosis of coronary artery of [place] 08/30/2023 History of pancreatitis 08/30/2023 Resolved Problems Problem Noted Date Diagnosed Date Resolved Date Refused influenza vaccine 08/30/2023 Encounters Date Type Department Care Team Description 04/23/2025 [facility] [address] [place] [address] Iftikhar Hodgson MD Type 2 diabetes mellitus with hyperglycemia, with long-term current use of insulin ([facility]) 04/08/2025 External Device Data STL ABSTRACTION Provider, Abstract from Last 3 Months Immunizations Immunization Administration Dates Next Due (ADACEL/BOOSTRIX)(10 YR UP) TDAP VACCINE, 0.5ML, IM 08/30/2023 (PNEUMOVAX 23)(50 YRS UP) PN EUMOCOCCAL POLYSACCHARIDE (PPV23) 0.5 ML, IM 08/30/2023 Hepatitis A Vaccine 02/17/2005 Hepatitis B Vaccine 02/17/2005 INFLUENZA VACCINE QUADRIVALENT 6 MOS UP PF IM Influenza Seasonal Unspecified Formulation IM Family History Medical History Relation Name Comments No Known Problems Daughter 1 No Known Problems Daughter 2 Cancer Father [place] Pancreatic Canc er High Cholesterol Father [place] Hypertension Father [place] Lung Cancer Maternal Grandfather Cody Anemia Maternal Grandmother Kathy Leukemia Maternal Grandmother Kathy Skin Cancer Maternal Grandmother Kathy Breast Cancer Mother Karma age 42 No Known Problems Paternal Grandfather Diabetes Paternal Grandmother Latisha Heart Disease Paternal Grandmother Latisha High Cholesterol Paternal Grandmother Latisha Hypertension Paternal Grandmother Latisha Stroke Paternal Grandmother Latisha Other Sister PCO PCOS No Known Problems Son 1 No Known Problems Son 2 Relation Name Status Comments Daughter 1 Alive Daughter 2 Alive Father [place] Maternal Grandfather Cody Maternal Grandmother Kathy Mother Karma Alive Paternal Grandfather Paternal Grandmother Latisha Sister PCO Alive Son 1 Alive Son 2 Alive Social History Tobacco Use Types Packs/Day Years Used Date Smoking Tobacco: Former Cigarettes 0 0 01/03/1995 - 01/03/1995 Passive Smoke Exposure: Never Smokeless Tobacco: Never Alcohol Use Standard Drinks/Week Comments Not Currently 6 (1 standard drink = 0.6 oz pur e alcohol) Feeling Safe Answer Date Recorded Are you in a relationship wi th someone who hurts you emotionally and/or physically? No 02/27/2024 Food Insecurity Answer Date Recorded Patient needs follow up regardin 02/23/2025 Transportation Needs Answer Date Record ed Patient needs follow up regardin 02/23/2025 Housing Stability Answer Date Recorded Social/Environmental Concerns No concerns Utility Needs Answer Date Recorded Patient needs follow up regardin 02/23/2025 Comments Unknown Sex and Gender Information Value Date Recorded Sex Assigned at Female 08/29/2023 2:58 PM SMOKING TOBACCO PACKER HAND Legal Sex Female 1:55 AM SMOKING TOBACCO PACKER HAND Gender Identity Female 08/29/2023 2:58 PM SMOKING TOBACCO PACKER HAND Sexual Orientation Straight 08/29/2023 2: 58 PM SMOKING TOBACCO PACKER HAND 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 Not on file Not on file Last Filed Vital Signs Vital Sign Reading Time Taken Comments Blood Pressure 132/78 04/11/2024 9:23 AM CDT Pulse 76 04/11/2024 9:23 AM CDT Temperature 36.6 C (97.8 F) 03/05/2024 5:05 AM CDT Respiratory Rate 18 03/05/2024 5:05 AM CDT Oxygen Saturation 100% 04/11/2024 9:23 AM CDT Inhaled Oxygen Concentration - - Weight 92.4 kg (203 lb 9.6 oz) 03/04/2024 9:02 A M CDT Height 157.5 cm (5' 2) 04/11/2024 9:23 AM CDT Body Mass Index 37.24 02/27/2024 8:01 PM CDT Plan of Treatment Health Maintenance Due Date Last Done Comments DIABETES ANNUAL RETINAL EXAM 1994 HEPATITIS B VACCINES (1 of 3 - 19+ 3-dose series) 1995 02/17/2005 HPV/Cotest (21-29) 1997 CERVICAL CANCER SCREENING 2006 HPV/Cotest (30-65) 2006 PAP SMEAR 2006 COLORECTAL SCREENING 2021 Colorectal Cancer Screening 2021 FIT-DNA Q 3 years 2021 FIT/FOBT Q 1 year 2021 Flex Sig/CT Colonography Q 5 years 2021 DIABETES HBA1C Q 6 MONTHS 08/27/20242023, 09/10/2023, 09/19/2022, Additional history exists DIABETES ANNUAL FOOT EXAM 08/30/2024 08/30/2023, 12/2021 BREAST CANCER SCREENING 09/10/2024 09/10/20 23, 07/24/2023, 07/24/2023, Additional history exists DIABETES MICROALBUMIN ANNUAL SCREEN 09/10/2024 09/10/2023 LDL CHOLESTEROL ANNUAL 02/24/2025 4, 09/10/2023, 03/27/2003 INFLUENZA VACCINE (#1) 2025 3, 08/30/2023, 09/19/2022, Additional history exists DTAP/TDAP/TD VACCINES (2 - T d or Tdap) 08/30/2033 08/30/2023 Procedures Procedure Name Priority Date/Time Associated Diagnosis Comments LIPID PANEL Routine 02/25/2024 4:48 PM CDT HEMOGLOBIN A1C Routine 02/25/2024 4:48 PM CDT MICROALBUMIN/CREATIN INE RATIO, RANDOM UR Routine 09/10/2023 8:08 AM SMOKING TOBACCO PACKER HAND MAMMO DIAG UNI RIGHT 3D EMILIA W OR WO CAD Routine 09/10/2023 7:15 AM SMOKING TOBACCO PACKER HAND Breast asymmetry Abnormal screening mammogram from Last 3 Months or Most Recently Relevant to Health Maintenance Results * (ABNORMAL) HEMOGLOBIN A1C (02/25/2024 4:48 PM CDT) HEMOGLOBIN A1C 10.6(H) <5.7 % 02/25/2024 5:42 PM CDT [facility] EST. AVG GLUCOSE, A1C 258 mg/dL 02/25/2024 5:42 PM CDT [facility] Blood Venipuncture / Unknown 02/25/2024 4:48 PM CDT 02/25/2024 5:10 PM CDT [facility] - 02/25/2024 5:42 PM CDT HGB A1C INTERPRETATION NORMAL: <5.7% PRE-DIABETES: 5.7 - 6.4% DIABETES: 6.5% OR GREATER Michael Travis DO CHEMISTRY ORDERABLES Final R esult [facility]# [id number] [address] [place] [address] * LIPID PANEL (02/25/2024 4:48 PM CDT) CHOLESTEROL 140 <200 mg/dL 02/25/2024 5:45 PM CDT [facility] TRIGLYCERIDE 118 <150 mg/dL 02/25/2024 5:45 PM CDT [facility] HDL 41 40 - 59 mg/dL 02/25/2024 5:45 PM CDT [facility] LDL CALCULATED 75 <100 mg/dL 02/25/2024 5:45 PM CDT [facility] NON-HDL CHOLESTEROL 99 <130 mg/dL 02/25/2024 5:45 PM CDT [facility] Blood Venipuncture / Unknown 02/25/2024 4:48 PM CDT 02/25/2024 5:10 PM CDT Narrative [facility] - 02/25/2024 5:45 PM CDT TOTAL CHOLESTEROL mg/dL Desirable <200 Borderline high 200-239 High >=240 TRIGLYCERIDES mg/dL Normal <150 Borderline high 150-199 High 200-499 Very high >=500 HDL CHOLESTEROL mg/dL Low <40 Normal 40-59 Desirable >=60 NON HDL CHOLESTEROL mg/dL Optimal <130 Near Optimal 130-159 Borderline High 160-189 Very High >=190 CALCULATED LDL mg/dL LDL <70, OPTIMAL if have Atherosclerotic cardiovascular disease (ASCVD) or intermediate or higher (>7.5%) 10 year risk of ASCVD including most adults with diabetes. LDL <100, Optimal in adult patients with low (<7.5%) 10 year ASCVD risk LDL 100-160, Suboptimal LDL >160, High LDL >190, Very high ATPIII Guidelines Reference Ranges for Lipid Panels (NCEP/AMA) . us Michael Travis DO CHEMISTRY ORDERABLES Final R esult [facility]# [id number] [address] [place] [id number] * (ABNORMAL) MICROALBUMIN/CREATININE RATIO, RANDOM UR (09/10/2023 8:08 AM SMOKING TOBACCO PACKER HAND) Creatinine, Urine 41 20 - 275 mg/dL [facility] MICROALBUMIN, URINE 4.3 See Note: mg/dL [facility] Comment: Reference Range: Reference Range Not established MICROALBUMIN/CREAT RATIO, UR 105(H) <30 mcg/mg creat [facility] Comment: The ADA defines abnormalities in albumin excretion as follows: Albuminuria Category Result (mcg/mg creatinine) Normal to Mildly increased <30 Moderately increased 30-299 Severely increased > OR = 300 The ADA recommends that at least two of three specimens collected within a 3-6 month period be abnormal before considering a patient to be within a diagnostic category. FASTING:YES FASTING: YES Test Performed at: [facility] [address] [id number] You Randhawa MD 09/10/2023 8:08 AM SMOKING TOBACCO PACKER HAND 09/10/2023 8:10 AM SMOKING TOBACCO PACKER HAND us Nelida Frias Chandlerrosalva SENIOR FACILITIES MANAGER URINE ORDERABLES Final Re sult [facility] [phone] [facility] [address] [id number] * MAMMO DIAG UNI RIGHT 3D EMILIA W OR WO CAD (09/10/2023 7:15 AM SMOKING TOBACCO PACKER HAND) Anatomical Region Laterality Modality Breast Right Mammography 09/10/2023 7:15 AM SMOKING TOBACCO PACKER HAND Impressions 09/10/2023 7:58 AM SMOKING TOBACCO PACKER HAND IMPRESSION: No evidence of malignancy in the right breast. Finding on screening mammogram reflected superimposition of normal breast tissue. OVERALL FINAL ASSESSMENT: BI-RADS Category 1: Negative mammogram. RECOMMENDATION: Bilateral screening mammogram in 1 year. Findings discussed with the patient. DICTATION LOCATION: [facility] Narrative 09/10/2023 7:58 AM SMOKING TOBACCO PACKER HAND RIGHT DIGITAL DIAGNOSTIC MAMMOGRAM WITH TOMOSYNTHESIS AND CAD TECHNIQUE: Images were performed using 2D full field digital mammography with 3D tomosynthesis images. CAD analysis was performed. DATE: 09/10/2023 7:15 AM HISTORY: Abnormal screening mammogram COMPARISON: Prior mammogram from an outside facility on 07/24/2023. BREAST COMPOSITION: There are scattered areas of fibroglandular density. FINDINGS: Additional views of the right breast, including 2D and tomosynthesis images, do not demonstrate persistent abnormality in the area of questioned finding on the screening mammogram. No suspicious mass, architectural distortion, or microcalcification is seen. Procedure Note Haile Miller MD - 09/10/2023 RIGHT DIGITAL DIAGNOSTIC MAMMOGRAM WITH TOMOSYNTHESIS AND CAD TECHNIQUE: Images were performed using 2D full field digital mammography with 3D tomosynthesis images. CAD analysis was performed. DATE: 09/10/2023 7:15 AM HISTORY: Abnormal screening mammogram COMPARISON: Prior mammogram from an outside facility on 07/24/2023. BREAST COMPOSITION: There are scattered areas of fibroglandular density. FINDINGS: Additional views of the right breast, including 2D and tomosynthesis images, do not demonstrate persistent abnormality in the area of questioned finding on the screening mammogram. No suspicious mass, architectural distortion, or microcalcification is seen. IMPRESSION: No evidence of malignancy in the right breast. Finding on screening mammogram reflected superimposition of normal breast tissue. OVERALL FINAL ASSESSMENT: BI-RADS Category 1: Negative mammogram. RECOMMENDATION: Bilateral screening mammogram in 1 year. Findings discussed with the patient. DICTATION LOCATION: [facility] Nelida Lisa rosalva SENIOR FACILITIES MANAGER MAMMO ORDERABLES Final Re sult from Last 3 Months or Most Recently Relevant to Health Maintenance Insurance [employer] OPEN ACCESS HMO RX [employer] RX Member Subscriber Plan / Payer (Ef fective 2023-Present) Name:Johnson Saunders Relation to Subscriber:Self Name:SaundersJohnson Subscriber ID:Not on file Payer ID:Not on file Group ID:[id number] Type:RX Commercial Address: [address] Advance Directives For more information, please contact: [phone] * Full Code (Latest Code Status on File) Date Activated Date Inactivated Comments 02/27/2024 6:57 PM 03/05/2024 5:05 PM * Full Code Date Activated Date Inactivated Comments 02/25/2024 3:28 PM 02/27/2024 6:36 PM * Full Code Date Activated Date Inactivated Comments 09/11/2023 1:30 PM 09/13/2023 3:38 PM Care Teams It Operations Analyst Relationship Specialty Start Date End Date Jordon Dennis DO [address] [place] [address] PCP - General Family Practice 02/26/24
--- OUTSIDE RECORDS SUMMARY | 2025-07-02 16:36 | XMS_ITS | Clinical Summary ---
Author Organization [facility] Address [address] [place] [address] Care Team Providers Care Blender Machine Operator Name Role Phone Radha Schaeffer MD Primary Care Provid er Lorena Larson MD Unavailable [phone] Allergies Active Allergy Reactions Criticality Noted Date Comments Azithromycin Unknown 10/07/2016 Clindamycin Other (See comments) Low Reaction: Vomiting, chills, Codeine Swelling Medium 11/05/2007 Vancomycin Other (See comments),Nausea only,Vomiting Low Reaction: Vomiting, chills, , Reaction: Nausea, Vomiting, Medications insulin regular (HumuLIN R, NovoLIN R) 100 unit/mL injection Take 2 Units per 15 gms of CHO and 1U / 25 > BG of 125. Max 30U / day 10 mL 11 11/09/19 21 Active metoclopramide (REGLAN) 5 mg tablet Take 1 tablet (5 mg total) by mouth 4 (four) times a day as needed Active insulin NPH (HumuLIN N, NovoLIN N) 100 unit/mL vial for injection Inject 15 Units under the skin 2 (two) times a day 10 mL 2 01/12/20 21 Active Additional Information Patient taking differently: 16 Unitssubcutaneous 2 times daily, Reported on 03/14/2022 aspirin 81 mg chewable tablet Take 1 tablet (81 mg total) by mouth daily 01/01/20 22 Active atorvastatin (LIPITOR) 80 mg tablet Take 1 tablet (80 mg total) by mouth nightly at bedtime 03/10/20 Active clopidogreL (PLAVIX) 75 mg tablet Take 1 tablet (75 mg total) by mouth daily 03/10/20 Active dilTIAZem CD (CARDIZEM CD) 300 mg 24 hr capsule TAKE 1 CAPSULE BY MOUTH ONCE DAILY FOR 30 DAYS 02/29/20 Active hydrALAZINE (APRESOLINE) 50 mg tablet 3 (three) times a day Active metoprolol XL (TOPROL-XL) 50 mg extended release tablet Take 1.5 tablets (75 mg total) by mouth daily 03/13/20 Active fluticasone propionate (FLONASE) 50 mcg/actuation nasal spray as needed 03/10/20 Active Allergy Relief, loratadine, 10 mg tablet as needed 03/10/20 Active acetaminophen (TYLENOL) 325 mg tablet 03/10/20 Active diphenhydrAMIN E-acetaminophe n (TYLENOL PM) 25-500 mg tablet Take 1 tablet by mouth as needed for sleep Active furosemide (LASIX) 20 mg tabletIndicati ons:Leg swelling Take 0.5 tablets (10 mg total) by mouth daily Take on-half tablet x 5 days for leg swelling 3 tablet 03/14/20 Active Entresto 24-26 mg tablet 03/22/20 Active carvediloL (COREG) 12.5 mg tablet 03/22/20 Active magnesium oxide (MAG-OX) 400 mg (241.3 mg elemental magnesium) tablet Take 1 tablet (400 mg total) by mouth daily Act heraclio traMADoL (ULTRAM) 50 mg tablet Take 1 tablet (50 mg total) by mouth every 6 (six) hours as needed 04/06/20 Active prazosin (MINIPRESS) 1 mg capsuleIndicat ions:Hypertens ion associated with diabetes (HCC) Take 1 capsule (1 mg total) by mouth nightly 30 capsule 04/14/20 Active Additional Information Patient not taking.Reported on 11/08/2022 buPROPion (WELLBUTRIN) 75 mg tabletIndicati ons:Anxiety and depression Take 1 tablet (75 mg total) by mouth 2 (two) times a day 180 tablet 04/26/20 Active Additional Information Patient not taking.Reported on 11/30/2022 cyclobenzaprin e (FLEXERIL) 5 mg tablet Take 5 mg by mouth 3 (three) times a day as needed 06/07/20 Active sucralfate (CARAFATE) 1 gram tablet 06/07/20 Active losartan (COZAAR) 25 mg tablet Take 1 tablet (25 mg total) by mouth daily 07/28/20 Active busPIRone (BUSPAR) 10 mg tabletIndicati ons:Generalize d Anxiety Disorder Take 1 tablet (10 mg total) by mouth 3 (three) times a day 90 tablet 5 09/19/20 Active carvediloL (COREG) 6.25 mg tablet TAKE 1 TABLET BY MOUTH TWICE DAILY WITH MORNING MEAL AND WITH EVENING MEAL 10/12/20 Active guaifenesin/de xtromethorphan (MUCINEX DM ORAL) Take by mouth Active vit 93/iron fum/folic ( FORMULA ORAL) Take by mouth Ac tive UNABLE TO FIND Med Name: DMG Supplement Active omeprazole (PriLOSEC) 20 mg capsule Take 20 mg by mouth daily Active nortriptyline (PAMELOR) 25 mg capsule TAKE 1 CAPSULE BY MOUTH NIGHTLY 90 capsule 1 11/11/19 23 Active LANTUS 100 unit/mL (3 mL) pen for injection Inject 25 Units under the skin nightly 7.5 mL 12/12/[address] (PROTONIX) 40 mg EC tablet Take 1 tablet by mouth once daily 30 tablet 3 01/11/20 23 Active gabapentin (NEURONTIN) 300 mg capsuleIndicat ions:Arthralgi a of both hands TAKE 1 CAPSULE BY MOUTH THREE TIMES DAILY 270 capsule 1 02/05/20 23 Active Active Problems Problem Noted Date Diagnosed Date BMI 34.0-34.9,adult 09/19/2022 Assessment & Plan (09/19/2022 12:46 PM OFFAL WORKER): BMI: Healthy diet. An optimal BMI (body mass index) is between 20 and 25. Vitamin D deficiency 04/26/2022 Assessment & Plan (04/26/2022 11:58 AM CDT): Recheck level Coronary artery disease invo lving [place] coronary artery of [place] heart without angina pectoris 04/26/2022 Assessment & Plan (04/26/2022 11:58 AM CDT): Condition is stable. Continue prescribed medications, risks and usage discussed if applicable, refills given if applicable and pt to f/u as scheduled. Seek medical care for new or worsening symptoms. Congestive heart failure 04/26/2022 Assessment & Plan (04/26/2022 11:58 AM CDT): Under the care of cardiology, stable on prescribed meds Anemia 04/26/2022 Hypertriglyceridemia 04/26/2022 Assessment & Plan (04/26/2022 11:58 AM CDT): Condition is stable. Continue prescribed medications, risks and usage discussed if applicable, refills given if applicable and pt to f/u as scheduled. Seek medical care for new or worsening symptoms. Anxiety and depression 04/26/2022 Assessment & Plan (09/19/2022 12:43 PM OFFAL WORKER): Condition is stable. Continue prescribed medications, risks and usage discussed if applicable, refills given if applicable and pt to f/u as scheduled. Seek medical care for new or worsening symptoms. Assessment & Plan (04/26/2022 12:00 PM CDT): Uncontrolled. Start Wellbutrin 75 mg p.o. b.i.d.. Was on due for from but reports not working. Previously on Celexa but discontinued, increase risk of QT syndrome. Take medication as prescribed and seek medical care for worsening condition CAD (coronary artery disease) 03/24/2022 Overview (03/24/2022): had 5th stint placed. Under care Cardiology [facility], Plavix 75 mg, Atorvastatin 80 mg , ASA Assessment & Plan (09/19/2022 12:44 PM OFFAL WORKER): Condition is stable. Continue prescribed medications, risks and usage discussed if applicable, refills given if applicable and pt to f/u as scheduled. Seek medical care for new or worsening symptoms. Under care of Cardiology Assessment & Plan (04/14/2022 5:22 PM CDT): Chronic stable continue Lipitor 80 mg, Plavix 75 mg, Aspirin 81 mg and keep follow up with Cardiology Assessment & Plan (03/24/2022 11:02 AM CDT): Worsening- chronic had 5th stint placed. Under care Cardiology [facility]- Continue Plavix 75 mg, Atorvastatin 80 mg , ASA Controlled type 2 diabetes m rebeca with circulatory disorder, with long-term current use of insulin 03/24/2022 Assessment & Plan (09/19/2022 12:44 PM OFFAL WORKER): Chronic reports worsening blood sugars in the 300s. Under care of Endocrinology at [facility]. Needs to schedule follow-up appointment Assessment & Plan (03/24/2022 11:04 AM CDT): Controlled HGBA1C 02/23/22 5.2 continue insulin regimen Mild episode of recurrent major depressive disor augusto 03/17/2022 Assessment & Plan (04/14/2022 5:20 PM CDT): Chronic stable continue Buspar 10 mg TID Assessment & Plan (03/24/2022 11:07 AM CDT): Chronic stable- new side effects of poor sleep and shaking requesting to decrease depression medication as she is feeling better. Denies thoughts of harm to self or others. Recommend wean off Abilify 5 mg by cutting in half x 2 weeks then take 1/2 tablet every other day x 1 week then stop Continue Buspar same dose If depression worsens while weaning medication then restart and call office Assessment & Plan (03/17/2022 10:02 AM CDT): Worsened due to 3 hospitalization over the past 2 months, Celexa was discontinued, Recommend continue Abilify and Buspar, she is feeling better today, denies thoughts of harm to self or others. Leg swelling 03/14/2022 Assessment & Plan (04/14/2022 5:21 PM CDT): Chronic restart Furosemide 20 mg per Cardiology appointment today Assessment & Plan (03/17/2022 9:59 AM CDT): Worsening- Likely multi-factorial. Increased weight, decreased activity level, will trial furosemide x 5 days, she will begin intensive out patient rehab this week. Anxiety 10/28/2021 Assessment & Plan (04/14/2022 5:23 PM CDT): Chronic stable continue Buspar Assessment & Plan (03/17/2022 10:02 AM CDT): Worsened due to 3 hospitalization over the past 2 months, Celexa was discontinued, Recommend continue Abilify and Buspar, she is feeling better today, denies thoughts of harm to self or others. Assessment & Plan (10/31/2021 8:14 AM OFFAL WORKER): Chronic stable continue Celexa 40 mg daily Arthralgia of both hands 01/05/2021 Assessment & Plan (01/05/2021 2:49 PM CDT): Unclear etiology but will obtain labs to evaluate for signs of inflammation in the meantime add gabapentin for concerns regarding neuropathic pain with additional management based on results and response to treatment Change in bowel habit 03/10/2018 FHx: colon cancer 03/10/[address] scan, colon 03/10/2018 Hypertension associated with diabetes 03/01/2018 Assessment & Plan (09/19/2022 12:45 PM OFFAL WORKER): Condition is stable. Continue prescribed medications, risks and usage discussed if applicable, refills given if applicable and pt to f/u as scheduled. Seek medical care for new or worsening symptoms. Assessment & Plan (06/08/2022 12:11 PM CDT): Blood pressure controlled, diabetes uncontrolled with HGBA1C of 9.3 on 06/06/22. Follows with Endocrine Assessment & Plan (04/26/2022 11:59 AM CDT): Condition is stable. Continue prescribed medications, risks and usage discussed if applicable, refills given if applicable and pt to f/u as scheduled. Seek medical care for new or worsening symptoms. Assessment & Plan (04/14/2022 5:18 PM CDT): Uncontrolled blood pressure to low, saw Cardiology and Hydralazine 50 mg decreased to 25 mg TID, he will see her back in 2 weeks and try to eliminate Prazosin if possible. Low salt diet Assessment & Plan (03/24/2022 11:03 AM CDT): Chronic stable continue medication Assessment & Plan (03/17/2022 7:59 AM CDT): Chronic stable blood pressure controlled at todays visit continue Cardizem CD 3 100 mg daily, hydralazine 50 mg t.i.d., low-salt diet Assessment & Plan (10/31/2021 8:13 AM OFFAL WORKER): Chronic stable continue lisinopril 20 mg daily and low-salt diet Assessment & Plan (05/26/2019 12:36 PM CDT): Diabetes completely out of control Pt non compliant A1c 14 at [facility] Not taking any of her meds Restarted Metformin F/u 90 d Pt has been advised on diet/exercise/weight loss Assessment & Plan (03/01/2018 2:17 PM CDT): appt set up NUHA with endo for reeval of meds Enterocolitis 10/08/2016 Overview (01/25/2021): Last Assessment & Plan: She feels a lot better, Is on appropriate antibiotics. Will re-evaluate tomorrow. Elevated liver enzymes 10/08/2016 Overview (02/06/2021): Last Assessment & Plan: May need to be worked up for Hepatitis Inflammatory spondylopathy 08/07/2016 Overview (01/26/2017): Inflammatory spondylopathy, unspecified spinal region GERD with esophagitis 12/28/2014 Overview (01/25/2021): Mild (grade B, LA classification) reflux esophagitis 12/2014, 09/2016 Assessment & Plan (04/26/2022 11:59 AM CDT): Condition is stable. Continue prescribed medications, risks and usage discussed if applicable, refills given if applicable and pt to f/u as scheduled. Seek medical care for new or worsening symptoms. Assessment & Plan (03/17/2022 10:00 AM CDT): Chronic stable continue Reglan 5 mg QID PRN Breast disorder 10/12/2014 Uncontrolled type 2 diabetes mellitus with hyper glycemia 02/24/2013 Overview (01/25/2017): Diabetes Mellitus Type 2, Uncomplicated Assessment & Plan (06/08/2022 6:09 PM CDT): UnControlled, recommend follow-up with Endocrinology, continue meds Assessment & Plan (04/26/2022 11:59 AM CDT): Under the care of endocrinology Assessment & Plan (04/14/2022 5:19 PM CDT): Chronic continue insulin regimen 16 units BID, continue checking blood sugars and needs to reschedule with Endocrinology. Due to missed appointment Assessment & Plan (03/17/2022 7:58 AM CDT): Uncontrolled- Chronic checking blood sugar around 190 which she reports is good for her. Has upcoming appt with Endocrine, continue Insulin regimen per Endocrine Resolved Problems Problem Noted Date Diagnosed Date Resolved Date Acute gastritis 06/08/2022 09/19/2022 Assessment & Plan (06/08/2022 6:10 PM CDT): Patient reports she continues to have a lot of pain despite medication. Recommend return to emergency room for evaluation. Continue all medication Class 1 obesity due to exces s calories with serious comorbidity and body mass index (BMI) of 33.0 to 33.9 in adult 04/26/2022 09/19/2022 Assessment & Plan (04/26/2022 12:00 PM CDT): Continue heart healthy diet, prescribed physical therapy Acute right-sided thoracic back pain 01/25/2021 10/28/2021 Assessment & Plan (01/25/2021 1:42 PM CDT): Symptoms are worse - New rx given today and instructed on usage and side effects - pt to call in 3-4 ds with progress report Symptoms are worse - X-ray of area pending Bilateral hand pain 01/05/2021 01/06/20 21 Cellulitis and abscess of right leg 04/07/2020 10/28/2021 Sepsis 04/07/2020 10/31/2021 Nausea 03/10/2018 10/28/2021 Assessment & Plan (03/10/2018 3:08 PM CDT): Nausea appear to be the most bothersome symptom. It is likely multifactorial, contributed by gastroesophageal reflux (was diagnosed LA grade B reflux esophagitis twice previously) and hyperglycemia, Denies marijuana use. Discussed life style modification for GERD. Written instruction on gastroesophageal reflux management was provided to patient Continue PPI b.i.d. therapy for 2 months, followed by evaluation by EGD for confirmation of reflux esophagitis healing. History of nonspecific abnormalities of the ascending colon months CT. Will recommend a colonoscopy with biopsy at the time of EGD. For bowel irregularity and frequent loose stools,Advised developing a symptom diet diary, and provided written information on FODMAP low diet. Patient is advised to not to avoid FODMAP low diet but recognizing any association of bloating with food that are FODMAP high. Left lower quadrant abdominal pain - cause not completely clear. CT from July 2017 reviewed. Will need colonoscopy to exclude intra colonic lesions Return to office in 4 weeks, will schedule colonoscopy and EGD once patient completed ppi therapy for 2 months. Thank you for allowing me to participate in the care of this patient LLQ pain 03/10/2018 10/28/2021 FHx: esophageal cancer 03/10/201810/28 Cellulitis 03/01/2018 10/28/2021 Assessment & Plan (05/26/2019 12:36 PM CDT): Take medication as prescribed and follow up in 3-4 days if symptoms not improving Assessment & Plan (03/01/2018 2:17 PM CDT): Much improved buth this has been recurrent , mos tlikely due to very poor DM control rx given for abx to keep on hand for immed use if flares again BMI 40.0-44.9, adult 03/01/2018 022 Assessment & Plan (03/01/2018 2:16 PM CDT): Pt has been advised on diet/exercise/weight loss Hyperglycemia 02/21/2018 10/31/2021 Gastroesophageal reflux dise ase without esophagitis 05/04/2017 03/16/2022 Assessment & Plan (10/31/2021 8:13 AM OFFAL WORKER): Chronic stable continue omeprazole 20 mg daily Obesity, morbid, BMI 40.0-49.9 05/04/2017 04/14/2022 Assessment & Plan (03/01/2018 2:17 PM CDT): Pt has been advised on diet/exercise/weight loss Elevated liver enzymes 10/08/201603/16 Overview (01/25/2021): Last Assessment & Plan: May need to be worked up for Hepatitis Uncontrolled type 2 diabetes mellitus with circulatory disorder 10/08/2016 03/24/2022 Overview (01/25/2021): Last Assessment & Plan: Have started her on lantus. Enterocolitis 10/08/2016 03/16/2022 Overview (02/06/2021): Last Assessment & Plan: She feels a lot better, Is on appropriate antibiotics. Will re-evaluate tomorrow. Uncontrolled type 2 diabetes mellitus with circulatory disorder 10/08/2016 03/24/2022 Overview (02/06/2021): Last Assessment & Plan: Have started her on lantus. Calf pain 01/01/2015 10/28/2021 Infectious gastroenteritis 01/01/2015 0 10/31/2021 GERD with esophagitis 12/28/20142021 Overview (02/06/2021): Mild (grade B, LA classification) reflux esophagitis 12/2014, 09/2016 Thumb pain 12/04/2014 10/31/2021 Overview (01/26/2017): Thumb pain Immunizations Immunization Administration Dates Next Due Hep A, Adult 02/17/2005 Hep B Vaccine 02/17/2005 Influenza, Quadrivalent, Spl it, Preservative Free, Intramuscular 09/19/2022 Influenza, Unspecified 06/08/2022(Deferr ed: Patient Refused),07/31/2021(Deferred: Patient Refused),07/31/2021(Deferred: Patient Refused),07/31/2021(Deferred: Patient Refused),07/31/2021(Deferred: Patient decision),07/22/2019(Deferred: Patient decision),11/22/2018(Deferred: Patient Refused),07/22/2018(Deferred: Patient Refused),07/22/2017(Deferred: Patient Refused) [employer] SARS-CoV-2 Vaccination 04/14/2022( Deferred: Patient decision) Surgical History Surgery Date Site/Laterality Comments CHOLECYSTECTOMY 10/22/2000 - 10/21/2001 Cholecystectomy CARDIAC STENT PLACEMENT Medical History Medical History Date Comments Diabetes mellitus (HCC) Diabetes Abdominal pain Change in bowel habit Diarrhea Constipation Nausea Heartburn Vomiting Abdominal bloating Dysphagia Cellulitis Family History Medical History Relation Name Comments Breast cancer Mother Cancer, breast ; Relation Name Status Comments Mother Social History Tobacco Use Types Packs/Day Years Used Date Smoking Tobacco: Never Smokeless Tobacco: Never Tobacco Cessation:Counseling Given: Not Answered Alcohol Use Standard Drinks/Week Comments Not Currently 0 (1 standard drink = 0.6 oz pur e alcohol) occasionally PHQ-2 Answer Date Recorded PHQ-2 Total Score (If total score is 3 or more points, staff should administer the PHQ-9) 4 03/14/2022 Comments No Sex and Gender Information Value Date Recorded Sex Assigned at Not on file Legal Sex Female 7:06 PM OFFAL WORKER Gender Identity Not on file Sexual Orientation Not on file Obstetrics History Last Filed Vital Signs Vital Sign Reading Time Taken Comments Blood Pressure 128/92 11/30/2022 10:16 AM OFFAL WORKER Pulse 89 11/30/2022 10:16 AM OFFAL WORKER Temperature 36.7 C (98.1 F) 11/30/2022 10:16 AM OFFAL WORKER Respiratory Rate 16 10/04/2022 5:00 PM OFFAL WORKER Oxygen Saturation 98% 11/30/2022 10:16 AM OFFAL WORKER Inhaled Oxygen Concentration - - Weight 84.4 kg (186 lb) 11/30/2022 10:16 AM OFFAL WORKER Height 157.5 cm (5' 2) 11/30/2022 10:16 AM OFFAL WORKER Body Mass Index 34.02 11/30/2022 10:16 AM OFFAL WORKER Plan of Treatment Health Maintenance Due Date Last Done Comments Cervical Cancer Screening 1976 Colon Cancer Screening-Colonoscopy 1976 Hepatitis C Screening 1976 DTaP/Tdap/Td Vaccine (1 - Tdap) 1987 Regular Well Visit/Exam 18-64 1994 Pneumococcal vaccine <65 (1 of 2 - PCV) 1995 Dilated Eye Exam 11/03/2021 11/03/2020, , 05/03/2017 Breast Cancer Screening-Mammogram 03/23/2022 03/23/2021, 12/04/2018, 10/07/2014 Depression Screening 03/14/2023 03/14/2022, 03/14/2022, 01/05/2021, Additional history exists Hemoglobin A1C 03/19/2023 09/19/2022, 05/22, 03/06/2022, Additional history exists Foot Exam 03/24/2023 03/24/2022, 11/23, 11/09/2020, Additional history exists Lipid Panel 04/14/2023 04/14/2022, 10/0 10/2014, 06/19/2014 Albumin Creatinine Ratio, Urine 09/19/2023 2 eGFR 09/19/2023 09/19/2022, 02/19, 03/01/2022, Additional history exists Influenza Vaccine (#1) 2025 09/19/2022 Hepatitis B Screening Completed 02/17/2005 Procedures Procedure Name Priority Date/Time Associated Diagnosis Comments EGFR Routine 09/19/2022 10:40 AM OFFAL WORKER Controlled type 2 diabetes mellitus with other circulatory complication, with long-term current use of insulin (HCC) HEMOGLOBIN A1C Routine 09/19/2022 10:40 AM OFFAL WORKER Controlled type 2 diabetes mellitus with other circulatory complication, with long-term current use of insulin (HCC) ALBUMIN CREATININE RATIO, URINE Routine 09/19/2022 10:40 AM OFFAL WORKER Controlled type 2 diabetes mellitus with other circulatory complication, with long-term current use of insulin (HCC) SCREENING MAMMOGRAM BILATERAL W RAFITA Schedule Routine, Read Routine (OP Routine) 03/23/2021 11:46 AM CDT Encounter for screening mammogram for malignant neoplasm of breast DIABETIC EYE EXAM Routine 11/03/2020 PLASMA LIPID PANEL Routine 07/22/2015 11 :55 AM CDT from Last 3 Months or Most Recently Relevant to Health Maintenance Results * eGFR (09/19/2022 10:40 AM OFFAL WORKER) eGFR 78 mL/min/1. 73 m2 [place] Comment: Interpretive Data Reference Interval Normal >/= 90 mL/min/1.73m2 Mildly decreased* 60 - 89 mL/min/1.73m2 Mildly to moderately decreased 45 - 59 mL/min/1.73m2 Moderately to severely decreased 30 - 44 mL/min/1.73m2 Severely decreased 15 - 29 mL/min/1.73m2 Kidney Failure < 15 mL/min/1.73m2 *Relative to young adult level Estimated glomerular filtration rate is determined by the 2020 CKD-EPI equation recommended by the National Kidney Foundation (A Unifying Approach to GFR Estimation: Recommendations of the NKF-ASK Task Force on Reassessing the Inclusion of Race in Diagnosing Kidney Disease, JASN 2020). The CKD-EPI equation should not be used for patients with unstable renal function and has not been validated in children and those over 70. Current interpretive data was last reviewed 2021. Blood 09/19/2022 10:4 0 AM OFFAL WORKER 09/19/2022 3:03 PM OFFAL WORKER Diana Boykin SOUP MIXER LAB BLOOD ORDERABLES Final R esult Performing Organization Address [facility] Co de Phone Number [facility] [id number] [address] [facility] [employer] [place] [address] * (ABNORMAL) Albumin Creatinine Ratio, Urine (09/19/2022 10:40 AM OFFAL WORKER) Albumin Ur 257.1 mg/L [facility] Comment: Interpretive Data No reference range established. Current interpretive data was last revised 2019. Creatinine Ur 46.7 mg/dL [facility] Comment: Interpretive Data No reference range established. Current interpretive data was last revised 2019. Albumin Creatinine Ratio, Ur 551(H) 1 - 29 mg/g [facility] Urine 09/19/2022 10:4 0 AM OFFAL WORKER 09/19/2022 2:49 PM OFFAL WORKER Diana Boykin SOUP MIXER LAB URINE ORDERABLES Final [facility] Performing Organization Address [facility] de Phone Number [facility] [phone] [address] [facility] [employer] [place] [address] * (ABNORMAL) Hemoglobin A1c (09/19/2022 10:40 AM OFFAL WORKER) Hgb A1C 13.3(H) 4.0 - 5.6 % [facility] Estimated Average Glucose 335 mg/dL [facility] Comment: The ADA recommends reporting an estimated Average Glucose (eAG) with all Hemoglobin A1c results using the equation derived from a study of 507 normal and diabetic adults. Minority populations were underrepresented and children were not included. (Diabetes Care 31:5744-1452, 2008). The eAG is not equivalent to a fasting glucose. Blood 09/19/2022 10:4 0 AM OFFAL WORKER 09/19/2022 2:49 PM OFFAL WORKER us Diana Boykin NP LAB BLOOD ORDER[place] [address] [address] [facility] [place] [address] * Screening Mammogram Bilateral W [place] (03/23/2021 11:46 AM CDT) Anatomical Region Laterality Modality Breast Bilateral Mammography 03/23/2021 Impressions 03/23/2021 3:01 PM CDT There is no mammographic evidence of malignancy. A return to screening mammogram in 1 year is recommended. Based on the the NCI model this patient may be at elevated lifetime risk for breast cancer. This is a simple risk model and formal risk assessment is recommended. If women are at high risk for breast cancer they may be eligible for advanced screening techniques (including MRI), genetic testing and counseling and medical or surgical treatments. Patients can contact their primary care doctor for further information regarding formal risk assessment for breast cancer. BI-RADS Category 1: Negative Narrative 03/23/2021 3:01 PM CDT EXAM: Bilateral Digital Screening Mammogram With Tomosynthesis - 03/23/2021 HISTORY: Patient is a 45 year old female and is seen for screening. The patient has a history of right excisional biopsy in 2004 - benign. The patient has the following family history of breast cancer: mother, at age 42, breast cancer, premenopausal and great aunt, at age 54, breast cancer. FILMS COMPARED: The present examination has been compared to a prior imaging study performed at [facility] on 12/04/2018. MAMMOGRAM FINDINGS: Bilateral CC tomosynthesis and C-view images, bilateral MLO tomosynthesis and C-view images were obtained. There are scattered fibroglandular densities. There are no suspicious masses, calcifications or other abnormalities. Digital breast tomosynthesis was performed and reviewed as a part of this examination. Procedure Note Jenna Blackmon MD - 03/23/2021 EXAM: Bilateral Digital Screening Mammogram With Tomosynthesis - 03/23/2021 HISTORY: Patient is a 45 year old female and is seen for screening. The patienthas a history of right excisional biopsy in 2005 - benign. The patient has the following family history of breast cancer: mother, at age 42,breast cancer, premenopausal and great aunt, at age 54, breast cancer. FILMS COMPARED: The present examination has been compared to a prior imaging study performed at [facility] on 12/04/2018. MAMMOGRAM FINDINGS: Bilateral CC tomosynthesis and C-view images, bilateral MLOtomosynthesis and C-view images were obtained. There are scattered fibroglandular densities. There are no suspicious masses, calcifications or other abnormalities. Digital breast tomosynthesis was performed and reviewed as a part ofthis examination. IMPRESSION: There is no mammographic evidence of malignancy. A return to screening mammogram in 1 year is recommended. Based on the the NCI model this patient may be at elevated lifetime risk for breast cancer. This is a simple risk model and formal riskassessment is recommended. If women are at high risk for breast cancer they may be eligible for advanced screening techniques (including MRI), genetictesting and counseling and medical or surgical treatments. Patients can contact their primary care doctor for further information regarding formal risk assessment for breast cancer. BI-RADS Category 1: Negative Result [facility] Penny Johnson NP IMG MAMMO PROCEDURES Final Res ult * (ABNORMAL) Diabetic Eye Exam (11/03/2020) Historical Provider HEALTH MAINTENANCE Final Result * (ABNORMAL) Plasma lipid panel (07/22/2015 11:55 AM CDT) Cholesterol 194 100 - 200 mg/dl HISTORICAL RESULTS Triglycerides 244(H) 10 - 150 mg/dl HISTORICAL RESULTS HDL 37(L) 40 - 59 mg/dl HISTORICAL RESULTS LDL 108 60 - 129 mg/dl HISTORICAL RESULTS Plasma 07/22/2015 11:5 5 AM CDT Chetan Le MD LAB BLOOD ORDERABLES Final Re sult HISTORICAL RESULTS from Last 3 Months or Most Recently Relevant to Health Maintenance Insurance ANTHEM ACCESS CHOICE ANTHEM ACCESS CHOICE ANTHEM ACCESS CHOICE ANTHEM ACCESS CHOICE [facility] [employer] Member Subscriber Plan / Payer (Ef fective 2023-Present) Name:Shani Liu Relation to Subscriber:Self Name:Shani Liu Payer ID:[id number] (NAIC) Type:[facility] HMO/PPO Address: [address] [place] [id number] Care Teams Blender Machine Operator Relationship Specialty Start Date End Date Radha Schaeffer MD [address] [place] [address] [place] [address] PCP - General Family Medicine 04/12/22 Lorena Larson MD [address] [place] [address] Consulting Physician Obstetrics and Gynecology 04/19/23
[2025-07-04 08:09] LABS: Immunoglobulin G, Qn 1234 mg/dL (586-1602)
[2025-07-05 19:07] LABS: Deamidated Gliadin Abs, IgA 3 units (0-19); Deamidated Gliadin Abs, IgG 1 units (0-19); Immunoglobulin A, Qn 164 mg/dL (87-352)
[2025-07-08 13:08] LABS: ANA by IFA Rfx Titer/Pattern Negative (.)
== END 2025-07-02 15:03 | disposition home or self-care (01) ==
LOC: CHSLAB 15:08
DX: R74.01 Elevation of levels of liver transaminase levels (principal)
CPT/HCPCS: 36415; 80076; 82103; 82104; 82390; 82784; 83540; 83550; 86015; 86038; 86231; 86258; 86381

== ENCOUNTER 2025-07-22 08:30 | Outpatient (RCR) | payer OTHER, SELFPAY ==
--- NOTE | 2025-07-10 17:08 | OPREHPOC ---
Outpatient Therapy Plan of Care This is a Multidisciplinary Plan of Care that may contain components documented by all disciplines (PT, OT, and ST.) PT Problem 1 PT Problem #1 Knowledge Deficit PT Goal 1 Goal / Goal Update compliant with HEP Target Visit 6 PT Problem 2 PT Problem #2 Impaired Balance PT Goal 1 Goal / Goal Update no falls in the last 4 weeks patient to display 5 point improvement on tinetti patient to improve TUG and 5x sit to stand by 10 seconds or better each Target Visit 12 PT Problem 3 PT Problem #3 Impaired Functional Mobility PT Goal 1 Goal / Goal Update patient to acquire walker to ambulate with improved safety and efficiency Target Visit 6 PT Goal 2 Goal / Goal Update patient to transition to ambulation with a cane Target Visit 12 PT Problem 4 PT Problem #4 Impaired Strength PT Goal 1 Goal / Goal Update improve bilateral LE strength by 1 mm grade or better overall Target Visit 12
--- NOTE | 2025-07-10 17:08 | PTOPEVAL1 ---
Assessment and note entered by JT File, PT Evaluation Information Assessment Status Evaluation ICD-10 Condition Codes (PT) Pain in right hip M25.551,Abnormalities of gait and mobility R26.9,Weakness R53.1 Onset 06/26/25 Subjective Information patient reports in 2021 she had 2 heart attacks. she reports she had stents put in after the 1st one. she reports the 2nd time they placed stents she got an infection and went into sepsis. she reports she needed a drain in the R LE due to the infection. she was placed in rehab 5x a week for all day. she reports she got well enough to get back to work. she reports she she potentially had a TIA last year which forced her out of work and back into rehab. she reports she has swelling in the R LE since her heart attacks and now the L LE since january of this year. she reports she has not struggled with weight gain (30lbs), and has difficulty with walking and stairs. she has also fallen 3 times in the past 6 moths. she reports she has fallen forwards 2x and backwards 1x. she reports she needs to be able to walk on her own. Reported Pain Level Pain Score 4: Self Report Assessment PT Clinical Summary mrs. zamudio is a 49 yo woman who presents to skilled PT services for rehab of deconditioning, falls, weakness, and ambulation deficits. she has a long medical history including DM2, bilateral LE edema, 2 heart attacks, 5 stents, and possible a TIA. patient it systemically struggling, but would benefit from continued skilled PT. she displays LE weakness, decreased balance, poor ambulation mechanics, and functional decline. therapy will focus on exercise progression to improve these objective/functional deficits and return to prior level functional activity performance. Plan of Care Interventions Gait Training,Neuro Re-education,Patient/Caregiver Education,Therapeutic Activities,Therapeutic Exercise,Self-Care/Home Management PT Services Indicated Yes Treatment Frequency and 3x weekly for 12 visits Duration These treatments will address the objective and functional deficits as defined above. The patient will be advanced safely and appropriately in order for the patient to progress towards his/her prior level of function. Additional exercises will be introduced and as well as a comprehensive home exercise program upon discharge, if needed, ?to ensure carryover of functional gains achieved in the clinic. This treatment plan has been reviewed and agreement upon by the patient.
== END 2025-07-22 20:00 | disposition home or self-care (01) ==
LOC: CHSPT 08:30
DX: M25.551 Pain in right hip (principal); R26.9 Unspecified abnormalities of gait and mobility; R53.1 Weakness
CPT/HCPCS: 97110; 97163; 97530

== ENCOUNTER 2025-09-15 13:51 | Outpatient (CLI) | payer OTHER, SELFPAY ==
[2025-09-15 14:17] LABS: Hematocrit 44.9 % (35.0-49.0); Hemoglobin 15.0 g/dL (12.0-15.0); Mean Corpuscular HGB Conc 33.4 g/dL (32-36); Mean Corpuscular Hemoglobin 31.4 pg (27.0-31.0); Mean Corpuscular Volume 94.1 fL (78.0-102.0); Platelet Count Result 208 K/mm3 (150-420); Red Blood Count 4.77 M/mm3 (4.20-5.40); White Blood Count 8.3 K/mm3 (4.8-10.8)
[2025-09-15 14:24] LABS: MALB Creatinine Ratio 87.5 mg/g (0-30)
[2025-09-15 14:41] LABS: Albumin Level 4.6 g/dL (3.5-5.1); Anion Gap 13 mmol/L (4-12); Blood Urea Nitrogen 27 mg/dL (7-17); Calcium 9.8 mg/dL (8.4-10.2); Carbon Dioxide 31 mmol/L (22-30); Chloride 94 mmol/L (98-107); Estimated Glomerular Filt Rate 38; Glucose 359 mg/dL (65-110); Osmolality Calculated 305 mOsm/kg (285-295); Potassium 4.1 mmol/L (3.4-5.0); Sodium 138 mmol/L (137-145)
--- OUTSIDE RECORDS SUMMARY | 2025-09-15 15:48 | XMS_ITS | Encounter Summary ---
Author Organization [facility] Address [address] [place] [address] Care Team Providers Care Systems Software Specialist Name Role Phone Jordon Dennis DO Primary Care Provider [phone] Encounter Details Date Type Department Care Team (Late st Contact Info) Description 03/27/2003 Outpatient Historical [facility] Internal Medicine [address] [place] [address] Chip Ruiz MD [address] [facility] [address] [place] [address] Social History Tobacco Use Types Packs/Day Years Used Date Smoking Tobacco: Never Assessed Comments Unknown Sex and Gender Information Value Date Recorded Sex Assigned at Female 08/29/2023 2:58 PM CRATING AND MOVING ESTIMATOR Legal Sex Female 1:55 AM CRATING AND MOVING ESTIMATOR Gender Identity Female 08/29/2023 2:58 PM CRATING AND MOVING ESTIMATOR Sexual Orientation Straight 08/29/2023 2: 58 PM CRATING AND MOVING ESTIMATOR documented as of this encounter Plan of Treatment Not on file documented as of this encounter Visit Diagnoses Not on filedocumented in this encounter Additional Health Concerns Infection Onset Date Last Indicated Resolved Time R/O C. diff 02/28/2024 02/28/2024 02/29/2024 8:13 AM CDT documented as of this encounter Care Teams Systems Software Specialist Relationship Specialty Start Date End Date Jordon Dennis DO [address] [place] [address] PCP - General Family Practice 02/26/24 documented as of this encounter
--- OUTSIDE RECORDS SUMMARY | 2025-09-15 15:48 | XMS_ITS | Encounter Summary ---
Author Organization [facility] Address [address] [place] [address] Care Team Providers Care Lead Athlete Name Role Phone Jordon Dennis DO Primary Care Provider [phone] Encounter Details Date Type Department Care Team (Late st Contact Info) Description 03/27/2003 Outpatient Historical [facility] Internal Medicine [address] [place] [address] Chip Ruiz MD [address] [facility] [address] [place] [address] Social History Tobacco Use Types Packs/Day Years Used Date Smoking Tobacco: Never Assessed Comments Unknown Sex and Gender Information Value Date Recorded Sex Assigned at Female 08/29/2023 2:58 PM WEB SEARCH EVALUATOR Legal Sex Female 1:55 AM WEB SEARCH EVALUATOR Gender Identity Female 08/29/2023 2:58 PM WEB SEARCH EVALUATOR Sexual Orientation Straight 08/29/2023 2: 58 PM WEB SEARCH EVALUATOR documented as of this encounter Plan of Treatment Not on file documented as of this encounter Visit Diagnoses Not on filedocumented in this encounter Additional Health Concerns Infection Onset Date Last Indicated Resolved Time R/O C. diff 02/28/2024 02/28/2024 02/29/2024 8:13 AM CDT documented as of this encounter Care Teams Lead Athlete Relationship Specialty Start Date End Date Jordon Dennis DO [address] [place] [address] PCP - General Family Practice 02/26/24 documented as of this encounter
--- OUTSIDE RECORDS SUMMARY | 2025-09-15 15:48 | XMS_ITS | Encounter Summary ---
Author Organization [facility] Address [address] [place] [address] Care Team Providers Care Case Manager Specialist Name Role Phone Jordon Dennis DO Primary Care Provider [phone] Encounter Details Date Type Department Care Team (Late st Contact Info) Description 03/27/2003 Outpatient Historical [facility] Internal Medicine [address] [place] [address] Chip Ruiz MD [address] [facility] [address] [place] [address] Social History Tobacco Use Types Packs/Day Years Used Date Smoking Tobacco: Never Assessed Comments Unknown Sex and Gender Information Value Date Recorded Sex Assigned at Female 08/29/2023 2:58 PM BRICK LOADER Legal Sex Female 1:55 AM BRICK LOADER Gender Identity Female 08/29/2023 2:58 PM BRICK LOADER Sexual Orientation Straight 08/29/2023 2: 58 PM BRICK LOADER documented as of this encounter Plan of Treatment Not on file documented as of this encounter Visit Diagnoses Not on filedocumented in this encounter Additional Health Concerns Infection Onset Date Last Indicated Resolved Time R/O C. diff 02/28/2024 02/28/2024 02/29/2024 8:13 AM CDT documented as of this encounter Care Teams Case Manager Specialist Relationship Specialty Start Date End Date Jordon Dennis DO [address] [place] [address] PCP - General Family Practice 02/26/24 documented as of this encounter
--- OUTSIDE RECORDS SUMMARY | 2025-09-15 15:48 | XMS_ITS | Encounter Summary ---
Author Organization [facility] Address [address] [place] [address] Care Team Providers Care Rodding Machine Tender Name Role Phone Jordon Dennis DO Primary Care Provider [phone] Encounter Details Date Type Department Care Team (Late st Contact Info) Description 03/27/2003 Outpatient Historical [facility] Internal Medicine [address] [place] [address] Chip Ruiz MD [address] [facility] [address] [place] [address] Social History Tobacco Use Types Packs/Day Years Used Date Smoking Tobacco: Never Assessed Comments Unknown Sex and Gender Information Value Date Recorded Sex Assigned at Female 08/29/2023 2:58 PM TIMBER ROBBER Legal Sex Female 1:55 AM TIMBER ROBBER Gender Identity Female 08/29/2023 2:58 PM TIMBER ROBBER Sexual Orientation Straight 08/29/2023 2: 58 PM TIMBER ROBBER documented as of this encounter Plan of Treatment Not on file documented as of this encounter Visit Diagnoses Not on filedocumented in this encounter Additional Health Concerns Infection Onset Date Last Indicated Resolved Time R/O C. diff 02/28/2024 02/28/2024 02/29/2024 8:13 AM CDT documented as of this encounter Care Teams Rodding Machine Tender Relationship Specialty Start Date End Date Jordon Dennis DO [address] [place] [address] PCP - General Family Practice 02/26/24 documented as of this encounter
--- OUTSIDE RECORDS SUMMARY | 2025-09-15 15:48 | XMS_ITS | Encounter Summary ---
Author Organization [facility] Address [address] [place] [address] Care Team Providers Care Crm Marketing Manager Name Role Phone Jordon Dennis DO Primary Care Provider [phone] Encounter Details Date Type Department Care Team (Late st Contact Info) Description 05/08/2003 Outpatient Historical [facility] Internal Medicine [address] [place] [address] Chip Ruiz MD [address] [facility] [address] [place] [address] Social History Tobacco Use Types Packs/Day Years Used Date Smoking Tobacco: Never Assessed Comments Unknown Sex and Gender Information Value Date Recorded Sex Assigned at Female 08/29/2023 2:58 PM FLEXIBLE SHAFT WINDER Legal Sex Female 1:55 AM FLEXIBLE SHAFT WINDER Gender Identity Female 08/29/2023 2:58 PM FLEXIBLE SHAFT WINDER Sexual Orientation Straight 08/29/2023 2: 58 PM FLEXIBLE SHAFT WINDER documented as of this encounter Plan of Treatment Not on file documented as of this encounter Visit Diagnoses Not on filedocumented in this encounter Additional Health Concerns Infection Onset Date Last Indicated Resolved Time R/O C. diff 02/28/2024 02/28/2024 02/29/2024 8:13 AM CDT documented as of this encounter Care Teams Crm Marketing Manager Relationship Specialty Start Date End Date Jordon Dennis DO [address] [place] [address] PCP - General Family Practice 02/26/24 documented as of this encounter
--- OUTSIDE RECORDS SUMMARY | 2025-09-15 15:48 | XMS_ITS | Encounter Summary ---
Author Organization [facility] Address [address] [place] [address] Care Team Providers Care Surveyor Geodetic Name Role Phone Jordon Dennis DO Primary Care Provider [phone] Encounter Details Date Type Department Care Team (Latest Contact Info) Description 03/27/2003 Outpatient Historical [facility], [address] Chip Ruiz MD [address] [place] [address] [address] [place] [address] OTHER SPECIFIED HYPOGLYCEMIA (Primary Dx) Social History Tobacco Use Types Packs/Day Years Used Date Smoking Tobacco: Never Assessed Comments Unknown Sex and Gender Information Value Date Recorded Sex Assigned at Female 08/29/2023 2:58 PM CLAIMS ACCOUNT SPECIALIST Legal Sex Female 1:55 AM CLAIMS ACCOUNT SPECIALIST Gender Identity Female 08/29/2023 2:58 PM CLAIMS ACCOUNT SPECIALIST Sexual Orientation Straight 08/29/2023 2: 58 PM CLAIMS ACCOUNT SPECIALIST documented as of this encounter Plan of Treatment Not on file documented as of this encounter Visit Diagnoses Diagnosis Other specified hypoglycemia- Primary documented in this encounter Additional Health Concerns Infection Onset Date Last Indicated Resolved Time R/O C. diff 02/28/2024 02/28/2024 02/29/2024 8:13 AM CDT documented as of this encounter Care Teams Surveyor Geodetic Relationship Specialty Start Date End Date Jordon Dennis DO [address] [place] [address] PCP - General Family Practice 02/26/24 documented as of this encounter
--- OUTSIDE RECORDS SUMMARY | 2025-09-15 15:48 | XMS_ITS | Encounter Summary ---
Author Organization [facility] Address [address] [place] [address] Care Team Providers Care Slitting Machine Operator Helper Name Role Phone Jordon Dennis DO Primary Care Provider [phone] Encounter Details Date Type Department Care Team (Late st Contact Info) Description 05/08/2003 Outpatient Historical [facility] Internal Medicine [address] [place] [address] Chip Ruiz MD [address] [facility] [address] [place] [address] Social History Tobacco Use Types Packs/Day Years Used Date Smoking Tobacco: Never Assessed Comments Unknown Sex and Gender Information Value Date Recorded Sex Assigned at Female 08/29/2023 2:58 PM HVAC PROJECT ENGINEER Legal Sex Female 1:55 AM HVAC PROJECT ENGINEER Gender Identity Female 08/29/2023 2:58 PM HVAC PROJECT ENGINEER Sexual Orientation Straight 08/29/2023 2: 58 PM HVAC PROJECT ENGINEER documented as of this encounter Plan of Treatment Not on file documented as of this encounter Visit Diagnoses Not on filedocumented in this encounter Additional Health Concerns Infection Onset Date Last Indicated Resolved Time R/O C. diff 02/28/2024 02/28/2024 02/29/2024 8:13 AM CDT documented as of this encounter Care Teams Slitting Machine Operator Helper Relationship Specialty Start Date End Date Jordon Dennis DO [address] [place] [address] PCP - General Family Practice 02/26/24 documented as of this encounter
--- OUTSIDE RECORDS SUMMARY | 2025-09-15 15:48 | XMS_ITS | Encounter Summary ---
Author Organization [facility] Address [address] [place] [address] Care Team Providers Care Stuffer Name Role Phone Jordon Dennis DO Primary Care Provider [phone] Encounter Details Date Type Department Care Team (Late st Contact Info) Description 03/27/2003 Outpatient Historical [facility] Internal Medicine [address] [place] [address] Chip Ruiz MD [address] [facility] [address] [place] [address] Social History Tobacco Use Types Packs/Day Years Used Date Smoking Tobacco: Never Assessed Comments Unknown Sex and Gender Information Value Date Recorded Sex Assigned at Female 08/29/2023 2:58 PM APPLICATION TECHNICIAN Legal Sex Female 1:55 AM APPLICATION TECHNICIAN Gender Identity Female 08/29/2023 2:58 PM APPLICATION TECHNICIAN Sexual Orientation Straight 08/29/2023 2: 58 PM APPLICATION TECHNICIAN documented as of this encounter Plan of Treatment Not on file documented as of this encounter Visit Diagnoses Not on filedocumented in this encounter Additional Health Concerns Infection Onset Date Last Indicated Resolved Time R/O C. diff 02/28/2024 02/28/2024 02/29/2024 8:13 AM CDT documented as of this encounter Care Teams Stuffer Relationship Specialty Start Date End Date Jordon Dennis DO [address] [place] [address] PCP - General Family Practice 02/26/24 documented as of this encounter
--- OUTSIDE RECORDS SUMMARY | 2025-09-15 15:48 | XMS_ITS | Encounter Summary ---
Author Organization [facility] Address [address] [place] [address] Care Team Providers Care Sleeve Setter Name Role Phone Jordon Dennis DO Primary Care Provider [phone] Encounter Details Date Type Department Care Team (Late st Contact Info) Description 03/27/2003 Outpatient Historical [facility] Internal Medicine [address] [place] [address] Chip Ruiz MD [address] [facility] [address] [place] [address] Social History Tobacco Use Types Packs/Day Years Used Date Smoking Tobacco: Never Assessed Comments Unknown Sex and Gender Information Value Date Recorded Sex Assigned at Female 08/29/2023 2:58 PM SWATCH FOLDER Legal Sex Female 1:55 AM SWATCH FOLDER Gender Identity Female 08/29/2023 2:58 PM SWATCH FOLDER Sexual Orientation Straight 08/29/2023 2: 58 PM SWATCH FOLDER documented as of this encounter Plan of Treatment Not on file documented as of this encounter Visit Diagnoses Not on filedocumented in this encounter Additional Health Concerns Infection Onset Date Last Indicated Resolved Time R/O C. diff 02/28/2024 02/28/2024 02/29/2024 8:13 AM CDT documented as of this encounter Care Teams Sleeve Setter Relationship Specialty Start Date End Date Jordon Dennis DO [address] [place] [address] PCP - General Family Practice 02/26/24 documented as of this encounter
--- OUTSIDE RECORDS SUMMARY | 2025-09-15 15:48 | XMS_ITS | Encounter Summary ---
Author Organization [facility] Address [address] [place] [address] Care Team Providers Care Cotton Factor Name Role Phone Jordon Dennis DO Primary Care Provider [phone] Encounter Details Date Type Department Care Team (Late st Contact Info) Description 03/27/2003 Outpatient Historical [facility] Internal Medicine [address] [place] [address] Chip Ruiz MD [address] [facility] [address] [place] [address] Social History Tobacco Use Types Packs/Day Years Used Date Smoking Tobacco: Never Assessed Comments Unknown Sex and Gender Information Value Date Recorded Sex Assigned at Female 08/29/2023 2:58 PM SCALPER OPERATOR Legal Sex Female 1:55 AM SCALPER OPERATOR Gender Identity Female 08/29/2023 2:58 PM SCALPER OPERATOR Sexual Orientation Straight 08/29/2023 2: 58 PM SCALPER OPERATOR documented as of this encounter Plan of Treatment Not on file documented as of this encounter Visit Diagnoses Not on filedocumented in this encounter Additional Health Concerns Infection Onset Date Last Indicated Resolved Time R/O C. diff 02/28/2024 02/28/2024 02/29/2024 8:13 AM CDT documented as of this encounter Care Teams Cotton Factor Relationship Specialty Start Date End Date Jordon Dennis DO [address] [place] [address] PCP - General Family Practice 02/26/24 documented as of this encounter
--- OUTSIDE RECORDS SUMMARY | 2025-09-15 15:48 | XMS_ITS | Encounter Summary ---
Author Organization [facility] Address [address] [place] [address] Care Team Providers Care Advertising Material Distributor Name Role Phone Jordon Dennis DO Primary Care Provider Encounter Details Date Type Department Care Team (Late st Contact Info) Description 03/27/2003 Outpatient Historical [facility] Internal Medicine [address] [place] [address] Chip Ruiz MD [address] [facility] [address] [place] [address] Social History Tobacco Use Types Packs/Day Years Used Date Smoking Tobacco: Never Assessed Comments Unknown Sex and Gender Information Value Date Recorded Sex Assigned at Female 08/29/2023 2:58 PM ENDS DOWN CHECKER Legal Sex Female 1:55 AM ENDS DOWN CHECKER Gender Identity Female 08/29/2023 2:58 PM ENDS DOWN CHECKER Sexual Orientation Straight 08/29/2023 2: 58 PM ENDS DOWN CHECKER documented as of this encounter Plan of Treatment Not on file documented as of this encounter Visit Diagnoses Not on filedocumented in this encounter Additional Health Concerns Infection Onset Date Last Indicated Resolved Time R/O C. diff 02/28/2024 02/28/2024 02/29/2024 8:13 AM CDT documented as of this encounter Care Teams Advertising Material Distributor Relationship Specialty Start Date End Date Jordon Dennis DO [address] [place] [address] PCP - General Family Practice 02/26/24 documented as of this encounter
--- OUTSIDE RECORDS SUMMARY | 2025-09-15 15:48 | XMS_ITS | Clinical Summary ---
Author Organization [facility] Address [address] [facility] Attn: [place] [address] Care Team Providers Care Scrap Burner Name Role Phone Jeannie Jordon POZO Primary Care Provider [phone] Allergies Active Allergy Reactions Criticality Noted Date [...] hyperglycemia, with long-term current use of insulin ([facility]) Take 1 Tablet (25 mg) by mouth [...] 08/30/2023 GERD (gastroesophageal reflux disease) History of MD (myocardial infarction) 08/30/2023 S/P coronary artery stent placement 08/30/2023 Chronic pansinusitis 08/30/2023 Breast asymmetry 08/30/2023 Abnormal screening mammogram 08/30/2023 Right groin pain 08/30/2023 Right hip pain 08/30/2023 Atherosclerosis of coronary artery of [place] [facility] [facility] 08/30/2023 History of pancreatitis 08/30/2023 Resolved Problems Problem Noted Date Diagnosed Date Resolved Date Refused influenza vaccine 08/30/2023 Immunizations Immunization Administration Dates Next Due (ADACEL/BOOSTRIX)(10 [...] Years Used Date Smoking Tobacco: Former Cigarettes 0.3 0 0 01/03/1995 - 01/03/1995 Passive Smoke [...] Sex Assigned at Female 08/29/2023 2:58 PM CREAM TESTER Legal Sex Female 1:55 AM CREAM TESTER Gender Identity Female 08/29/2023 2:58 PM CREAM TESTER Sexual Orientation Straight 08/29/2023 2: 58 PM CREAM TESTER Occupation Industry Job Start Date Job End [...] 09/10/2023, 03/27/2003 INFLUENZA VACCINE (#1) 2025 3, 09/19/2022, 09/19/2022 DTAP/TDAP/TD VACCINES (2 - T d or Tdap) 08/30/2033 08/30/2023 Procedures Procedure Name Priority Date/Time Associated Diagnosis Comments LIPID PANEL Routine 02/25/2024 4:48 PM CDT HEMOGLOBIN A1C Routine 02/25/2024 4:48 PM CDT MICROALBUMIN/CREATIN INE RATIO, RANDOM UR Routine 09/10/2023 8:08 AM CREAM TESTER MAMMO DIAG UNI RIGHT 3D EMILIA W OR WO CAD Routine 09/10/2023 7:15 AM CREAM TESTER Breast asymmetry Abnormal screening mammogram from Last 3 Months or Most Recently Relevant to Health Maintenance Results * (ABNORMAL) HEMOGLOBIN A1C (02/25/2024 4:48 PM CDT) HEMOGLOBIN A1C 10.6(H) <5.7 % 02/25/2024 5:42 PM CDT [facility]. AVG GLUCOSE, A1C 258 mg/dL 02/25/2024 5:42 PM CDT [facility]OR[facility] Blood Venipuncture / Unknown 02/25/2024 4:48 PM CDT 02/25/2024 5:10 PM CDT [facility] - 02/25/2024 5:42 PM CDT HGB A1C INTERPRETATION NORMAL: <5.7% PRE-DIABETES: 5.7 - 6.4% DIABETES: 6.5% OR GREATER Michael Travis DO CHEMISTRY ORDERABLES Final R esult [facility] Red Aril [facility]# [id number] [address] [facility] [place] [address] * LIPID PANEL (02/25/2024 4:48 PM CDT) CHOLESTEROL 140 <200 mg/dL 02/25/2024 5:45 PM CDT [facility] TRIGLYCERIDE 118 <150 mg/dL 02/25/2024 5:45 PM CDT [facility] Red Aril [facility] HDL 41 40 - 59 mg/dL 02/25/2024 5:45 PM CDT [facility] LDL CALCULATED 75 <100 mg/dL 02/25/2024 5:45 PM CDT [facility] Red Aril [facility] NON-HDL CHOLESTEROL 99 <130 mg/dL 02/25/2024 5:45 PM CDT [facility] Blood Venipuncture / Unknown 02/25/2024 4:48 PM CDT 02/25/2024 5:10 PM CDT [facility] - 02/25/2024 5:45 PM CDT [...] Travis DO CHEMISTRY ORDERABLES Final R esult Performing Organization Address [facility]/ZIP Co de Phone Number [facility]# [id number] [address] [address] * (ABNORMAL) MICROALBUMIN/CREATININE RATIO, RANDOM UR (09/10/2023 8:08 AM CREAM TESTER) Creatinine, Urine 41 20 - 275 mg/dL [...] category. FASTING:YES FASTING: YES Test Performed at: [facility] [address] [address] You Randhawa MD 09/10/2023 8:08 AM CREAM TESTER 09/10/2023 8:10 AM CREAM TESTER us Nelida Lisa Shanelle SHIPPING RECEIVING CLERK URINE ORDERABLES Final Re sult Performing Organization Address [facility]/ZIP Co de Phone Number [facility] [phone] [facility] [address] [address] [facility] [address] * MAMMO DIAG UNI RIGHT 3D EMILIA W OR WO CAD (09/10/2023 7:15 AM CREAM TESTER) Anatomical Region Laterality Modality Breast Right Mammography 09/10/2023 7:1 5 AM CREAM TESTER Impressions 09/10/2023 7:58 AM CREAM TESTER IMPRESSION: No evidence of malignancy in the right breast. Finding on screening mammogram reflected superimposition of normal breast tissue. OVERALL FINAL ASSESSMENT: BI-RADS Category 1: Negative mammogram. RECOMMENDATION: Bilateral screening mammogram in 1 year. Findings discussed with the patient. DICTATION LOCATION: [facility] 09/10/2023 7:58 AM CREAM TESTER RIGHT DIGITAL DIAGNOSTIC MAMMOGRAM WITH TOMOSYNTHESIS AND [...] with the patient. DICTATION LOCATION: [facility] Nelida Frias Horosalva SHIPPING RECEIVING CLERK MAMMO ORDERABLES Final Re sult from Last 3 Months or Most Recently Relevant to Health Maintenance Insurance [employer] OPEN ACCESS HMO RX [employer] RX Member Subscriber Plan / Payer (Ef fective 2023-Present) Name:Johnson Saunders Relation to Subscriber:Self Name:Wade Johnson Martin Subscriber ID:Not on file Payer ID:Not on file Group ID:[id number] Type:RX Commercial Address: [address] [id number] Advance Directives For more information, please contact: [phone] * Full Code (Latest Code Status on File) Date Activated Date Inactivated Comments 02/27/2024 6:57 PM 03/05/2024 5:05 PM * Full Code Date Activated Date Inactivated Comments 02/25/2024 3:28 PM 02/27/2024 6:36 PM * Full Code Date Activated Date Inactivated Comments 09/11/2023 1:30 PM 09/13/2023 3:38 PM Care Teams Scrap Burner Relationship Specialty Start Date End Date Jordon Dennis DO [address] [place] [address] PCP - General Family Practice 02/26/24
--- OUTSIDE RECORDS SUMMARY | 2025-09-15 15:48 | XMS_ITS | Clinical Summary ---
Author Organization [facility] Address [facility] access [facility] [place] [address] Care Team Providers Care Aircraft Machinist Helper Name Role Phone Himanshu Yarbrough MD Primary Care Provider [phone] Allergies Active Allergy Reactions Criticality Noted Date [...] HPV 2006 COVID-19 Vaccine ( season) 2025 Influenza Adult (#1) 2025 09/19/2022 Mammogram Screening 09/10/2025 09/10/2023, 03/23/2021, 12/04/2018, Additional history exists DTaP, Tdap and Td Vaccines (2 - Td or Tdap) 08/30/2033 08/30/2023 Colorectal Cancer Screening Colonoscopy (10 Years) 07/24/2034 07/24/2024, 07/24/2024 Hepatitis A Vaccines Aged Out 02/17/2005 No long er eligible based on patient's age to complete this topic Pneumococcal Vaccine: Pediatrics (0 to 5 Years) [...] Most Recently Relevant to Health Maintenance Insurance CIG Care Teams Aircraft Machinist Helper Relationship Specialty Start Date End Date Himanshu Yarbrough MD [address] [place] [address] PCP - General INTERNAL MEDICINE 07/24/24
--- OUTSIDE RECORDS SUMMARY | 2025-09-15 15:48 | XMS_ITS | Clinical Summary ---
Author Organization [facility] Address [address] [place] [address] Care Team Providers Care Shade Classifier Name Role Phone Radha Schaeffer MD Primary Care Provid er Lorena Larson MD Unavailable [phone] Allergies Active Allergy Reactions Criticality Noted Date [...] 09/19/2022 Assessment & Plan (09/19/2022 12:46 PM SECURITY SOLUTIONS ENGINEER): BMI: Healthy diet. An optimal BMI (body mass index) is between 20 and 25. Vitamin D deficiency 04/26/2022 Assessment & Plan (04/26/2022 11:58 AM CDT): Recheck level Coronary artery disease invo lving kash[place] coronary artery of [place] heart without angina pectoris 04/26/2022 Assessment & [...] 04/26/2022 Assessment & Plan (09/19/2022 12:43 PM SECURITY SOLUTIONS ENGINEER): Condition is stable. Continue prescribed medications, risks [...] ASA Assessment & Plan (09/19/2022 12:44 PM SECURITY SOLUTIONS ENGINEER): Condition is stable. Continue prescribed medications, risks [...] had 5th stint placed. 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 Under care of Endocrinology at [facility]. Needs to schedule follow-up appointment Assessment & [...] others. Assessment & Plan (10/31/2021 8:14 AM SECURITY SOLUTIONS ENGINEER): Chronic stable continue Celexa 40 mg daily [...] 03/01/2018 Assessment & Plan (09/19/2022 12:45 PM SECURITY SOLUTIONS ENGINEER): Condition is stable. Continue prescribed medications, risks [...] diet Assessment & Plan (10/31/2021 8:13 AM SECURITY SOLUTIONS ENGINEER): Chronic stable continue lisinopril 20 mg daily and low-salt diet Assessment & Plan (05/26/2019 12:36 PM CDT): Diabetes completely out of control Pt non compliant A1c 14 at [facility] Not taking any of her meds Restarted [...] 03/16/2022 Assessment & Plan (10/31/2021 8:13 AM SECURITY SOLUTIONS ENGINEER): Chronic stable continue omeprazole 20 mg daily [...] decision),11/22/2018(Deferred: Patient Refused),07/22/2018(Deferred: Patient Refused),07/22/2017(Deferred: Patient Refused) [facility] ([facility]) SARS-CoV-2 Vaccination 04/14/2022( Deferred: Patient decision) Surgical History Surgery Date Site/Laterality Comments CHOLECYSTECTOMY 10/22/2000 - 10/21/2001 Cholecystectomy CARDIAC STENT PLACEMENT Medical History Medical History Date Comments Diabetes mellitus Diabetes Abdominal pain Change in bowel habit [...] on file Legal Sex Female 7:06 PM SECURITY SOLUTIONS ENGINEER Gender Identity Not on file Sexual Orientation Not on file Last Filed Vital Signs Vital Sign Reading Time Taken Comments Blood Pressure 128/92 11/30/2022 10:16 AM SECURITY SOLUTIONS ENGINEER Pulse 89 11/30/2022 10:16 AM SECURITY SOLUTIONS ENGINEER Temperature 36.7 C (98.1 F) 11/30/2022 10:16 AM SECURITY SOLUTIONS ENGINEER Respiratory Rate 16 10/04/2022 5:00 PM SECURITY SOLUTIONS ENGINEER Oxygen Saturation 98% 11/30/2022 10:16 AM SECURITY SOLUTIONS ENGINEER Inhaled Oxygen Concentration - - Weight 84.4 kg (186 lb) 11/30/2022 10:16 AM SECURITY SOLUTIONS ENGINEER Height 157.5 cm (5' 2) 11/30/2022 10:16 AM SECURITY SOLUTIONS ENGINEER Body Mass Index 34.02 11/30/2022 10:16 AM SECURITY SOLUTIONS ENGINEER Plan of Treatment Health Maintenance Due Date [...] 10/2014, 06/19/2014 Albumin Creatinine Ratio, Urine 09/19/2023 eGFR 09/19/2023 09/19/2022, 02/19, 03/01/2022, Additional history exists Influenza Vaccine (#1) 2025 09/19/2022 Hepatitis B Screening Completed 02/17/2005 Procedures Procedure Name Priority Date/Time Associated Diagnosis Comments EGFR Routine 09/19/2022 10:40 AM SECURITY SOLUTIONS ENGINEER 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 73 m2 [place] [...] reviewed 2021. Blood 09/19/2022 10:4 0 AM SECURITY SOLUTIONS ENGINEER 09/19/2022 3:03 PM SECURITY SOLUTIONS ENGINEER Diana Boykin NP LAB BLOOD ORDERABLES Final R [facility] Performing Organization Address [facility] Co de Phone Number [facility] [address] [address] [facility] [place] [address] * (ABNORMAL) Albumin Creatinine Ratio, Urine (09/19/2022 10:40 AM SECURITY SOLUTIONS ENGINEER) Albumin Ur 257.1 mg/L [facility] Comment: Interpretive Data No reference range established. Current interpretive data was last revised 2019. Creatinine Ur 46.7 mg/dL [facility] Comment: Interpretive Data No reference range established. Current interpretive data was last revised 2019. Albumin Creatinine Ratio, Ur 551(H) 1 - 29 mg/g [facility] Urine 09/19/2022 10:4 0 AM SECURITY SOLUTIONS ENGINEER 09/19/2022 2:49 PM SECURITY SOLUTIONS ENGINEER Diana Boykin IN PROCESS INSPECTOR LAB URINE ORDERABLES Final [facility] Organization Address [facility] Co de Phone Number [facility] [address] [facility] [place] [address] * (ABNORMAL) Hemoglobin A1c (09/19/2022 10:40 AM SECURITY SOLUTIONS ENGINEER) Hgb A1C 13.3(H) 4.0 - 5.6 % [facility] Estimated Average Glucose 335 mg/dL [facility] Comment: The ADA recommends reporting an estimated Average Glucose (eAG) with all Hemoglobin A1c results using the equation derived from a study of 507 normal and diabetic adults. Minority populations were underrepresented and children were not included. (Diabetes Care 31:0361-2675, 2008). The eAG is not equivalent to a fasting glucose. Blood 09/19/2022 10:4 0 AM SECURITY SOLUTIONS ENGINEER 09/19/2022 2:49 PM SECURITY SOLUTIONS ENGINEER us Diana Boykin NP LAB BLOOD [place] [address] [address] [facility] [place] [address] * Screening Mammogram Bilateral W Raf[place] (03/23/2021 [...] to a prior imaging study performed at [facility] on 12/04/2018. MAMMOGRAM FINDINGS: Bilateral CC tomosynthesis [...] to a prior imaging study performed at [facility] on 12/04/2018. MAMMOGRAM FINDINGS: Bilateral CC tomosynthesis [...] breast cancer. BI-RADS Category 1: Negative Result [facility] Penny Johnson NP IMG MAMMO [...] CHOICE ANTHEM ACCESS CHOICE ANTHEM ACCESS CHOICE [facility] H[facility]/PPO Address: [address] [place] [phone] Care Teams Shade Classifier Relationship Specialty Start Date End Date Radha Schaeffer MD [address] [facility] [address] [place] [address] PCP - General Family Medicine 04/12/22 Lorena Larson MD [address] [place] [address] Consulting Physician Obstetrics and Gynecology 04/19/23
--- OUTSIDE RECORDS SUMMARY | 2025-09-15 15:49 | XMS_ITS | Encounter Summary ---
Author Organization [facility] Address [address] [place] [address] Care Team Providers Care Analyst Name Role Phone Jordon Dennis DO Primary Care Provider [phone] Encounter Details Date Type Department Care Team (Late st Contact Info) Description 05/08/2003 Outpatient Historical [facility] Internal Medicine [address] [place] [address] Chip Ruiz MD [address] [facility] [address] [place] [address] Social History Tobacco Use Types Packs/Day Years Used Date Smoking Tobacco: Never Assessed Comments Unknown Sex and Gender Information Value Date Recorded Sex Assigned at Female 08/29/2023 2:58 PM HOMEMAKING REHABILITATION CONSULTANT Legal Sex Female 1:55 AM HOMEMAKING REHABILITATION CONSULTANT Gender Identity Female 08/29/2023 2:58 PM HOMEMAKING REHABILITATION CONSULTANT Sexual Orientation Straight 08/29/2023 2: 58 PM HOMEMAKING REHABILITATION CONSULTANT documented as of this encounter Plan of Treatment Not on file documented as of this encounter Visit Diagnoses Not on filedocumented in this encounter Additional Health Concerns Infection Onset Date Last Indicated Resolved Time R/O C. diff 02/28/2024 02/28/2024 02/29/2024 8:13 AM CDT documented as of this encounter Care Teams Analyst Relationship Specialty Start Date End Date Jordon Dennis DO [address] [place] [address] PCP - General Family Practice 02/26/24 documented as of this encounter
== END 2025-09-15 13:52 | disposition home or self-care (01) ==
DX: N18.4 Chronic kidney disease, stage 4 (severe) (principal)
CPT/HCPCS: 36415; 80069; 82043; 85027

== ENCOUNTER 2025-09-30 23:13 | Emergency (ER) | payer OTHER, SELFPAY ==
--- NOTE | ~2025-09-30 | XR_ITS ---
Examination: XR ankle RT min 3V, XR foot RT min 3V Clinical History: TWIST/ALL OVER PAIN Comparison: None Technique: 4 views right ankle, 4 views right foot Findings/impression: Right ankle: 1. Avulsion fracture medial malleolus. 2. No other fracture identified. 3. Ankle mortise maintained. 4. Diabetic arteriopathy. Right foot: 1. No fracture identified. 2. Midfoot and forefoot soft tissue swelling. Reviewed, dictated and finalized at location [facility]. [facility]
--- OUTSIDE RECORDS SUMMARY | 2025-09-30 23:15 | XMS_ITS | Clinical Summary ---
Author Organization [facility] Address [address] [place] [address] Care Team Providers Care Repairer Hairspring Name Role Phone Radha Schaeffer MD Primary Care Provid er Lorena Larson MD Unavailable [phone] Allergies Active Allergy Reactions Criticality Noted Date [...] 09/19/2022 Assessment & Plan (09/19/2022 12:46 PM SALES REPRESENTATIVE PUBLICATIONS): BMI: Healthy diet. An optimal BMI (body mass index) is between 20 and 25. Vitamin D deficiency 04/26/2022 Assessment & Plan (04/26/2022 11:58 AM CDT): Recheck level Coronary artery disease invo lving [place] coronary artery of [place] heart without angina pectoris 04/26/2022 Assessment & [...] 04/26/2022 Assessment & Plan (09/19/2022 12:43 PM SALES REPRESENTATIVE PUBLICATIONS): Condition is stable. Continue prescribed medications, risks [...] ASA Assessment & Plan (09/19/2022 12:44 PM SALES REPRESENTATIVE PUBLICATIONS): Condition is stable. Continue prescribed medications, risks [...] had 5th stint placed. 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 Under care of Endocrinology at [facility]. Needs to schedule follow-up appointment Assessment & [...] others. Assessment & Plan (10/31/2021 8:14 AM SALES REPRESENTATIVE PUBLICATIONS): Chronic stable continue Celexa 40 mg daily [...] 03/01/2018 Assessment & Plan (09/19/2022 12:45 PM SALES REPRESENTATIVE PUBLICATIONS): Condition is stable. Continue prescribed medications, risks [...] diet Assessment & Plan (10/31/2021 8:13 AM SALES REPRESENTATIVE PUBLICATIONS): Chronic stable continue lisinopril 20 mg daily and low-salt diet Assessment & Plan (05/26/2019 12:36 PM CDT): Diabetes completely out of control Pt non compliant A1c 14 at [facility] Not taking any of her meds Restarted [...] 03/16/2022 Assessment & Plan (10/31/2021 8:13 AM SALES REPRESENTATIVE PUBLICATIONS): Chronic stable continue omeprazole 20 mg daily [...] decision),11/22/2018(Deferred: Patient Refused),07/22/2018(Deferred: Patient Refused),07/22/2017(Deferred: Patient Refused) [employer] ([facility]) SARS-CoV-2 Vaccination 04/14/2022( Deferred: Patient decision) [...] on file Legal Sex Female 7:06 PM SALES REPRESENTATIVE PUBLICATIONS Gender Identity Not on file Sexual Orientation Not on file Last Filed Vital Signs Vital Sign Reading Time Taken Comments Blood Pressure 128/92 11/30/2022 10:16 AM SALES REPRESENTATIVE PUBLICATIONS Pulse 89 11/30/2022 10:16 AM SALES REPRESENTATIVE PUBLICATIONS Temperature 36.7 C (98.1 F) 11/30/2022 10:16 AM SALES REPRESENTATIVE PUBLICATIONS Respiratory Rate 16 10/04/2022 5:00 PM SALES REPRESENTATIVE PUBLICATIONS Oxygen Saturation 98% 11/30/2022 10:16 AM SALES REPRESENTATIVE PUBLICATIONS Inhaled Oxygen Concentration - - Weight 84.4 kg (186 lb) 11/30/2022 10:16 AM SALES REPRESENTATIVE PUBLICATIONS Height 157.5 cm (5' 2) 11/30/2022 10:16 AM SALES REPRESENTATIVE PUBLICATIONS Body Mass Index 34.02 11/30/2022 10:16 AM SALES REPRESENTATIVE PUBLICATIONS Plan of Treatment Health Maintenance Due Date [...] Diagnosis Comments EGFR Routine 09/19/2022 10:40 AM SALES REPRESENTATIVE PUBLICATIONS Controlled type 2 diabetes mellitus with other circulatory complication, with long-term current use of insulin (HCC) HEMOGLOBIN A1C Routine 09/19/2022 10:40 AM SALES REPRESENTATIVE PUBLICATIONS Controlled type 2 diabetes mellitus with other circulatory complication, with long-term current use of insulin (HCC) ALBUMIN CREATININE RATIO, URINE Routine 09/19/2022 10:40 AM SALES REPRESENTATIVE PUBLICATIONS Controlled type 2 diabetes mellitus with other [...] Maintenance Results * eGFR (09/19/2022 10:40 AM SALES REPRESENTATIVE PUBLICATIONS) eGFR 78 mL/min/1. 73 m2 [place] DC [...] reviewed 2021. Blood 09/19/2022 10:4 0 AM SALES REPRESENTATIVE PUBLICATIONS 09/19/2022 3:03 PM SALES REPRESENTATIVE PUBLICATIONS Diana Boykin NP LAB BLOOD ORDERABLES Final R [facility] Performing Organization Address [facility] Co de Phone Number [facility] [address] [address] [facility] [place] [address] * (ABNORMAL) Albumin Creatinine Ratio, Urine (09/19/2022 10:40 AM SALES REPRESENTATIVE PUBLICATIONS) Albumin Ur 257.1 mg/L [facility] Comment: Interpretive Data No reference range established. Current interpretive data was last revised 2019. Creatinine Ur 46.7 mg/dL [facility] Comment: Interpretive Data No reference range established. Current interpretive data was last revised 2019. Albumin Creatinine Ratio, Ur 551(H) 1 - 29 mg/g [facility] Urine 09/19/2022 10:4 0 AM SALES REPRESENTATIVE PUBLICATIONS 09/19/2022 2:49 PM SALES REPRESENTATIVE PUBLICATIONS Diana Boykin STRATEGIC MARKETING LEADER LAB URINE ORDERABLES Final [facility] Organization Address [facility] Co de Phone Number [facility] [address] [address] [facility] [place] [address] * (ABNORMAL) Hemoglobin A1c (09/19/2022 10:40 AM SALES REPRESENTATIVE PUBLICATIONS) Hgb A1C 13.3(H) 4.0 - 5.6 % [facility] Estimated Average Glucose 335 mg/dL [facility] Comment: The ADA recommends reporting an estimated Average Glucose (eAG) with all Hemoglobin A1c results using the equation derived from a study of 507 normal and diabetic adults. Minority populations were underrepresented and children were not included. (Diabetes Care 31:0770-1753, 2008). The eAG is not equivalent to a fasting glucose. Blood 09/19/2022 10:4 0 AM SALES REPRESENTATIVE PUBLICATIONS 09/19/2022 2:49 PM SALES REPRESENTATIVE PUBLICATIONS us Diana Boykin NP LAB BLOOD [place] [address] [address] [place] [address] * Screening Mammogram Bilateral W Raf[place] (03/23/2021 [...] to a prior imaging study performed at [facility] on 12/04/2018. MAMMOGRAM FINDINGS: Bilateral CC tomosynthesis [...] to a prior imaging study performed at [facility] on 12/04/2018. MAMMOGRAM FINDINGS: Bilateral CC tomosynthesis [...] breast cancer. BI-RADS Category 1: Negative Result [facility] Penny Johnson NP IMG MAMMO [...] CHOICE ANTHEM ACCESS CHOICE ANTHEM ACCESS CHOICE [facility] [employer] Member Subscriber Plan / Payer (Ef fective 2023-Present) Name:Shani Liu Relation to Subscriber:Self Name:Shani Liu Payer ID:[id number] (NAIC) Type:[facility] HMO/PPO Address: [address] [place] [phone] Care Teams Repairer Hairspring Relationship Specialty Start Date End Date Radha Schaeffer MD [address] [facility] [address] [place] [address] PCP - General Family Medicine 04/12/22 Lorena Larson MD [address] [place] [address] Consulting Physician Obstetrics and Gynecology 04/19/23
--- OUTSIDE RECORDS SUMMARY | 2025-09-30 23:15 | XMS_ITS | Clinical Summary ---
[facility] Organization [facility] Address [address] [facility] Attn: [place] [address] Care Team Providers Care Machining Associate Name Role Phone Jeannie Jordon POZO Primary Care Provider [phone] Allergies Active Allergy Reactions Criticality Noted Date [...] hyperglycemia, with long-term current use of insulin ([facility]) Take 1 Tablet (25 mg) [...] 08/30/2023 GERD (gastroesophageal reflux disease) History of VA (myocardial infarction) 08/30/2023 S/P coronary artery stent placement 08/30/2023 Chronic pansinusitis 08/30/2023 Breast asymmetry 08/30/2023 Abnormal screening mammogram 08/30/2023 Right groin pain 08/30/2023 Right hip pain 08/30/2023 Atherosclerosis of coronary artery of [place] 08/30/2023 History of pancreatitis 08/30/2023 [...] Sex Assigned at Female 08/29/2023 2:58 PM BID MANAGER Legal Sex Female 1:55 AM BID MANAGER Gender Identity Female 08/29/2023 2:58 PM BID MANAGER Sexual Orientation Straight 08/29/2023 2: 58 PM BID MANAGER Occupation Industry Job Start Date Job End [...] RATIO, RANDOM UR Routine 09/10/2023 8:08 AM BID MANAGER MAMMO DIAG UNI RIGHT 3D EMILIA W OR WO CAD Routine 09/10/2023 7:15 AM BID MANAGER Breast asymmetry Abnormal screening mammogram from Last 3 Months or Most Recently Relevant to Health Maintenance Results * (ABNORMAL) HEMOGLOBIN A1C (02/25/2024 4:48 PM CDT) HEMOGLOBIN A1C 10.6(H) <5.7 % 02/25/2024 5:42 PM CDT [facility]. AVG GLUCOSE, A1C 258 mg/dL 02/25/2024 5:42 PM CDT [facility] Blood Venipuncture / Unknown 02/25/2024 4:48 PM CDT 02/25/2024 5:10 PM CDT [facility] [facility] - 02/25/2024 5:42 PM CDT HGB A1C INTERPRETATION NORMAL: <5.7% PRE-DIABETES: 5.7 - 6.4% DIABETES: 6.5% OR GREATER us Michael Travis DO CHEMISTRY ORDERABLES Final R esult [facility]# [id number] 5 Wilfredo [facility] [place] [place] [address] * LIPID PANEL (02/25/2024 4:48 PM CDT) CHOLESTEROL 140 <200 mg/dL 02/25/2024 5:45 PM CDT [facility] TRIGLYCERIDE 118 <150 mg/dL 02/25/2024 5:45 PM CDT [facility] HDL 41 40 - 59 mg/dL 02/25/2024 5:45 PM CDT [facility] LDL CALCULATED 75 <100 mg/dL 02/25/2024 5:45 PM CDT [facility] NON-HDL CHOLESTEROL 99 <130 mg/dL 02/25/2024 5:45 PM CDT [facility] Blood Venipuncture / Unknown 02/25/2024 4:48 PM CDT 02/25/2024 5:10 PM CDT [employer] [facility] - 02/25/2024 5:45 PM CDT TOTAL CHOLESTEROL [...] ORDERABLES Final R esult Performing Organization Address [facility]/ZIP Co de Phone Number [facility]# [id number] [address] [place] [address] * (ABNORMAL) MICROALBUMIN/CREATININE RATIO, RANDOM UR (09/10/2023 8:08 AM BID MANAGER) Creatinine, Urine 41 20 - 275 mg/dL [facility] [employer] MICROALBUMIN, URINE 4.3 See Note: mg/dL [...] category. FASTING:YES FASTING: YES Test Performed at: [facility] [id number] [employer] [id number] You Randhawa MD 09/10/2023 8:08 AM BID MANAGER 09/10/2023 8:10 AM BID MANAGER us Nelida Timmons MARKING STITCHER URINE ORDERABLES Final Re sult Performing Organization Address City/[facility]/ZIP Co de Phone Number [facility] [phone] [facility] [address] [facility] [place] [address] * MAMMO DIAG UNI RIGHT 3D EMILIA W OR WO CAD (09/10/2023 7:15 AM BID MANAGER) Anatomical Region Laterality Modality Breast Right Mammography 09/10/2023 7:1 5 AM BID MANAGER Impressions 09/10/2023 7:58 AM BID MANAGER IMPRESSION: No evidence of malignancy in the right breast. Finding on screening mammogram reflected superimposition of normal breast tissue. OVERALL FINAL ASSESSMENT: BI-RADS Category 1: Negative mammogram. RECOMMENDATION: Bilateral screening mammogram in 1 year. Findings discussed with the patient. DICTATION LOCATION: [facility] 09/10/2023 7:58 AM BID MANAGER RIGHT DIGITAL DIAGNOSTIC MAMMOGRAM WITH TOMOSYNTHESIS AND [...] DICTATION LOCATION: [facility] Nelida Frias [facility] MARKING STITCHER MAMMO ORDERABLES Final Re sult from Last 3 Months or Most Recently Relevant to Health Maintenance Insurance [employer] OPEN ACCESS HMO RX [employer] RX Member Subscriber Plan / Payer (Ef fective 2023-Present) Name:Johnson Saunders Relation to Subscriber:Self Name:Wade Johnson Martin Subscriber ID:Not on file Payer ID:Not on file Group ID:[id number] Type:RX Commercial Address: [address] Advance Directives For more information, please contact: [phone] * Full Code (Latest Code Status on File) Date Activated Date Inactivated Comments 02/27/2024 6:57 PM 03/05/2024 5:05 PM * Full Code Date Activated Date Inactivated Comments 02/25/2024 3:28 PM 02/27/2024 6:36 PM * Full Code Date Activated Date Inactivated Comments 09/11/2023 1:30 PM 09/13/2023 3:38 PM Care Teams Machining Associate Relationship Specialty Start Date End Date Jordon Dennis DO [address] [place] [address] PCP - General Family Practice 02/26/24
--- OUTSIDE RECORDS SUMMARY | 2025-09-30 23:16 | XMS_ITS | Encounter Summary ---
Author Organization [employer] [facility] Address [address] [place] [address] Care Team Providers Care Online Community Manager Name Role Phone Jordon Dennis DO Primary Care Provider [phone] Encounter Details Date Type Department Care Team (Late st Contact Info) Description 03/27/2003 Outpatient Historical [facility] Internal Medicine [address] [place] [address] Chip Ruiz MD [address] [facility] [address] [place] [address] Social History Tobacco Use Types Packs/Day Years Used Date Smoking Tobacco: Never Assessed Comments Unknown Sex and Gender Information Value Date Recorded Sex Assigned at Female 08/29/2023 2:58 PM CUSTOMER ORDER CLERK Legal Sex Female 1:55 AM CUSTOMER ORDER CLERK Gender Identity Female 08/29/2023 2:58 PM CUSTOMER ORDER CLERK Sexual Orientation Straight 08/29/2023 2: 58 PM CUSTOMER ORDER CLERK documented as of this encounter Plan of Treatment Not on file documented as of this encounter Visit Diagnoses Not on filedocumented in this encounter Additional Health Concerns Infection Onset Date Last Indicated Resolved Time R/O C. diff 02/28/2024 02/28/2024 02/29/2024 8:13 AM CDT documented as of this encounter Care Teams Online Community Manager Relationship Specialty Start Date End Date Jordon Dennis DO [address] [place] [address] PCP - General Family Practice 02/26/24 documented as of this encounter
--- OUTSIDE RECORDS SUMMARY | 2025-09-30 23:16 | XMS_ITS | Encounter Summary ---
Author Organization [employer] [facility] Address [address] [place] [address] Care Team Providers Care Plant Worker Name Role Phone Jordon Dennis DO Primary Care Provider [phone] Encounter Details Date Type Department Care Team (Late st Contact Info) Description 03/27/2003 Outpatient Historical [facility] Internal Medicine [address] [place] [address] Chip Ruiz MD [address] [facility] [address] [place] [address] Social History Tobacco Use Types Packs/Day Years Used Date Smoking Tobacco: Never Assessed Comments Unknown Sex and Gender Information Value Date Recorded Sex Assigned at Female 08/29/2023 2:58 PM WEIGHT LOSS SALES CONSULTANT Legal Sex Female 1:55 AM WEIGHT LOSS SALES CONSULTANT Gender Identity Female 08/29/2023 2:58 PM WEIGHT LOSS SALES CONSULTANT Sexual Orientation Straight 08/29/2023 2: 58 PM WEIGHT LOSS SALES CONSULTANT documented as of this encounter Plan of Treatment Not on file documented as of this encounter Visit Diagnoses Not on filedocumented in this encounter Additional Health Concerns Infection Onset Date Last Indicated Resolved Time R/O C. diff 02/28/2024 02/28/2024 02/29/2024 8:13 AM CDT documented as of this encounter Care Teams Plant Worker Relationship Specialty Start Date End Date Jordon Dennis DO [address] [place] [address] PCP - General Family Practice 02/26/24 documented as of this encounter
--- OUTSIDE RECORDS SUMMARY | 2025-09-30 23:16 | XMS_ITS | Encounter Summary ---
Author Organization [employer] [facility] Address [address] [place] [address] Care Team Providers Care Electronic Transaction Implementer Name Role Phone Jordon Dennis DO Primary Care Provider [phone] Encounter Details Date Type Department Care Team (Late st Contact Info) Description 03/27/2003 Outpatient Historical [facility] Internal Medicine [address] [place] [address] Chip Ruiz MD [address] [facility] [address] [place] [address] Social History Tobacco Use Types Packs/Day Years Used Date Smoking Tobacco: Never Assessed Comments Unknown Sex and Gender Information Value Date Recorded Sex Assigned at Female 08/29/2023 2:58 PM POLITICAL SCIENCE PROFESSOR Legal Sex Female 1:55 AM POLITICAL SCIENCE PROFESSOR Gender Identity Female 08/29/2023 2:58 PM POLITICAL SCIENCE PROFESSOR Sexual Orientation Straight 08/29/2023 2: 58 PM POLITICAL SCIENCE PROFESSOR documented as of this encounter Plan of Treatment Not on file documented as of this encounter Visit Diagnoses Not on filedocumented in this encounter Additional Health Concerns Infection Onset Date Last Indicated Resolved Time R/O C. diff 02/28/2024 02/28/2024 02/29/2024 8:13 AM CDT documented as of this encounter Care Teams Electronic Transaction Implementer Relationship Specialty Start Date End Date Jordon Dennis DO [address] [place] [address] PCP - General Family Practice 02/26/24 documented as of this encounter
--- OUTSIDE RECORDS SUMMARY | 2025-09-30 23:16 | XMS_ITS | Encounter Summary ---
Author Organization [employer] [facility] Address [address] [place] [address] Care Team Providers Care Rigging Slinger Name Role Phone Jordon Dennis DO Primary Care Provider [phone] Encounter Details Date Type Department Care Team (Late st Contact Info) Description 05/08/2003 Outpatient Historical [facility] Internal Medicine [address] [place] [address] Chip Ruiz MD [address] [facility] [address] [place] [address] Social History Tobacco Use Types Packs/Day Years Used Date Smoking Tobacco: Never Assessed Comments Unknown Sex and Gender Information Value Date Recorded Sex Assigned at Female 08/29/2023 2:58 PM FOOD AND BEVERAGE ASSISTANT Legal Sex Female 1:55 AM FOOD AND BEVERAGE ASSISTANT Gender Identity Female 08/29/2023 2:58 PM FOOD AND BEVERAGE ASSISTANT Sexual Orientation Straight 08/29/2023 2: 58 PM FOOD AND BEVERAGE ASSISTANT documented as of this encounter Plan of Treatment Not on file documented as of this encounter Visit Diagnoses Not on filedocumented in this encounter Additional Health Concerns Infection Onset Date Last Indicated Resolved Time R/O C. diff 02/28/2024 02/28/2024 02/29/2024 8:13 AM CDT documented as of this encounter Care Teams Rigging Slinger Relationship Specialty Start Date End Date Jordon Dennis DO [address] [place] [address] PCP - General Family Practice 02/26/24 documented as of this encounter
--- OUTSIDE RECORDS SUMMARY | 2025-09-30 23:16 | XMS_ITS | Encounter Summary ---
Author Organization [employer] Address [address] [place] [address] Care Team Providers Care Sandblaster Stone Name Role Phone Jordon Dennis DO Primary Care Provider [phone] Encounter Details Date Type Department Care Team (Latest Contact Info) Description 03/27/2003 Outpatient Historical [facility], [address] Chip Ruiz MD [address] [place] [address] [place] [address] OTHER SPECIFIED HYPOGLYCEMIA (Primary Dx) Social History Tobacco Use Types Packs/Day Years Used Date Smoking Tobacco: Never Assessed Comments Unknown Sex and Gender Information Value Date Recorded Sex Assigned at Female 08/29/2023 2:58 PM ARMHOLE PRESSER Legal Sex Female 1:55 AM ARMHOLE PRESSER Gender Identity Female 08/29/2023 2:58 PM ARMHOLE PRESSER Sexual Orientation Straight 08/29/2023 2: 58 PM ARMHOLE PRESSER documented as of this encounter Plan of Treatment Not on file documented as of this encounter Visit Diagnoses Diagnosis Other specified hypoglycemia- Primary documented in this encounter Additional Health Concerns Infection Onset Date Last Indicated Resolved Time R/O C. diff 02/28/2024 02/28/2024 02/29/2024 8:13 AM CDT documented as of this encounter Care Teams Sandblaster Stone Relationship Specialty Start Date End Date Jordon Dennis DO [address] [place] [address] PCP - General Family Practice 02/26/24 documented as of this encounter
--- OUTSIDE RECORDS SUMMARY | 2025-09-30 23:16 | XMS_ITS | Encounter Summary ---
Author Organization [employer] [facility] Address [address] [place] [address] Care Team Providers Care Lead Portfolio Manager Name Role Phone Jordon Dennis DO Primary Care Provider [phone] Encounter Details Date Type Department Care Team (Late st Contact Info) Description 03/27/2003 Outpatient Historical [facility] Internal Medicine [address] [place] [address] Chip Ruiz MD [address] [facility] [address] [place] [address] Social History Tobacco Use Types Packs/Day Years Used Date Smoking Tobacco: Never Assessed Comments Unknown Sex and Gender Information Value Date Recorded Sex Assigned at Female 08/29/2023 2:58 PM FITTING ROOM CHECKER Legal Sex Female 1:55 AM FITTING ROOM CHECKER Gender Identity Female 08/29/2023 2:58 PM FITTING ROOM CHECKER Sexual Orientation Straight 08/29/2023 2: 58 PM FITTING ROOM CHECKER documented as of this encounter Plan of Treatment Not on file documented as of this encounter Visit Diagnoses Not on filedocumented in this encounter Additional Health Concerns Infection Onset Date Last Indicated Resolved Time R/O C. diff 02/28/2024 02/28/2024 02/29/2024 8:13 AM CDT documented as of this encounter Care Teams Lead Portfolio Manager Relationship Specialty Start Date End Date Jordon Dennis DO [address] [place] [address] PCP - General Family Practice 02/26/24 documented as of this encounter
--- OUTSIDE RECORDS SUMMARY | 2025-09-30 23:16 | XMS_ITS | Encounter Summary ---
Author Organization [employer] [facility] Address [address] [place] [address] Care Team Providers Care Sheep Or Calf Grader Name Role Phone Jordon Dennis DO Primary Care Provider [phone] Encounter Details Date Type Department Care Team (Late st Contact Info) Description 05/08/2003 Outpatient Historical [facility] Internal Medicine [address] [place] [address] Chip Ruiz MD [address] [facility] [address] [place] [address] Social History Tobacco Use Types Packs/Day Years Used Date Smoking Tobacco: Never Assessed Comments Unknown Sex and Gender Information Value Date Recorded Sex Assigned at Female 08/29/2023 2:58 PM SPREADER OPERATOR Legal Sex Female 1:55 AM SPREADER OPERATOR Gender Identity Female 08/29/2023 2:58 PM SPREADER OPERATOR Sexual Orientation Straight 08/29/2023 2: 58 PM SPREADER OPERATOR documented as of this encounter Plan of Treatment Not on file documented as of this encounter Visit Diagnoses Not on filedocumented in this encounter Additional Health Concerns Infection Onset Date Last Indicated Resolved Time R/O C. diff 02/28/2024 02/28/2024 02/29/2024 8:13 AM CDT documented as of this encounter Care Teams Sheep Or Calf Grader Relationship Specialty Start Date End Date Jordon Dennis DO [address] [place] [address] PCP - General Family Practice 02/26/24 documented as of this encounter
--- OUTSIDE RECORDS SUMMARY | 2025-09-30 23:16 | XMS_ITS | Encounter Summary ---
Author Organization [employer] [facility] Address [address] [place] [address] Care Team Providers Care Heel Emery Buffer Name Role Phone Jordon Dennis DO Primary Care Provider [phone] Encounter Details Date Type Department Care Team (Late st Contact Info) Description 03/27/2003 Outpatient Historical [facility] Internal Medicine [address] [place] [address] Chip Ruiz MD [address] [facility] [address] [place] [address] Social History Tobacco Use Types Packs/Day Years Used Date Smoking Tobacco: Never Assessed Comments Unknown Sex and Gender Information Value Date Recorded Sex Assigned at Female 08/29/2023 2:58 PM AIRPORT ELECTRICIAN Legal Sex Female 1:55 AM AIRPORT ELECTRICIAN Gender Identity Female 08/29/2023 2:58 PM AIRPORT ELECTRICIAN Sexual Orientation Straight 08/29/2023 2: 58 PM AIRPORT ELECTRICIAN documented as of this encounter Plan of Treatment Not on file documented as of this encounter Visit Diagnoses Not on filedocumented in this encounter Additional Health Concerns Infection Onset Date Last Indicated Resolved Time R/O C. diff 02/28/2024 02/28/2024 02/29/2024 8:13 AM CDT documented as of this encounter Care Teams Heel Emery Buffer Relationship Specialty Start Date End Date Jordon Dennis DO [address] [place] [address] PCP - General Family Practice 02/26/24 documented as of this encounter
--- OUTSIDE RECORDS SUMMARY | 2025-09-30 23:16 | XMS_ITS | Encounter Summary ---
Author Organization [employer] [facility] Address [address] [place] [address] Care Team Providers Care Griddle Attendant Name Role Phone Jordon Dennis DO Primary Care Provider [phone] Encounter Details Date Type Department Care Team (Late st Contact Info) Description 03/27/2003 Outpatient Historical [facility] Internal Medicine [address] [place] [address] Chip Ruiz MD [address] [facility] [address] [place] [address] Social History Tobacco Use Types Packs/Day Years Used Date Smoking Tobacco: Never Assessed Comments Unknown Sex and Gender Information Value Date Recorded Sex Assigned at Female 08/29/2023 2:58 PM OFFICE MACHINES WIRER Legal Sex Female 1:55 AM OFFICE MACHINES WIRER Gender Identity Female 08/29/2023 2:58 PM OFFICE MACHINES WIRER Sexual Orientation Straight 08/29/2023 2: 58 PM OFFICE MACHINES WIRER documented as of this encounter Plan of Treatment Not on file documented as of this encounter Visit Diagnoses Not on filedocumented in this encounter Additional Health Concerns Infection Onset Date Last Indicated Resolved Time R/O C. diff 02/28/2024 02/28/2024 02/29/2024 8:13 AM CDT documented as of this encounter Care Teams Griddle Attendant Relationship Specialty Start Date End Date Jordon Dennis DO [address] [place] [address] PCP - General Family Practice 02/26/24 documented as of this encounter
--- OUTSIDE RECORDS SUMMARY | 2025-09-30 23:16 | XMS_ITS ---
Author Organization Unknown Address [address] [place] [place] [phone] Phone Care Team Providers Care Loan Teller Name Role Phone RICKEY Perry Attending Unavailable ARCHANA REYNA Primary Unavailable Results TROPONIN LEVEL - Collect Forrest e/Time: 02/25/2024 13:[address] [facility] ID: [id number] [address] [place] [address], [id number] LOINC: 60823-5 Test Value Unit Reference Range Code Code System Flag TROPONIN < 0.012 ng/mL L=0.000 H=0.033 70963-4 LOINC BEDSIDE GLUCOSE - Collect Da te/Time: 02/25/2024 12:[address] [facility] ID: [id number] [address] [place] [address], [phone] LOINC: 37757-8 Test Value Unit Reference Range Code Code System Flag BEDSIDE GLUCOSE 145 mg/dl L=74 H=106 55270-5 LOINC H ARTERIAL BLOOD GAS - Collect Date/Time: 02/25/2024 12:[address] [facility] ID: [id number] [address] [place] [address], [phone] LOINC: 01886-6 Test Value Unit Reference Range Code Code System Flag pH 7.49 L=7.35 H=7.45 2753-2 LOINC H PO2 279.0 mmHg L=80.0 H=100 08007-3 LOINC H PCO2 29.0 mmHg L=35.0 H=45.0 45851-5 LOINC L BE -0.3 mmol/L L=0.0 H=2.0 89308-7 LOINC L BEecf -1.9 mmol/L L=0.0 H=2.0 08068-8 LOINC L HCO3 21.8 mmol/L L=22.0 H=26.0 27061-4 LOINC L A-aDO2 40 mmHg L=7 H=13 72989-0 LOINC H O2Hb 98.1 % L=85.0 H=100 72784-7 LOINC sO2m 100.0 % L=85.0 H=100 DONOVAN TEST NOT PERFORMED 75811-0 LOINC PUNCTURE SITE LEFT RADIAL FIO2 50 % BEDSIDE GLUCOSE - Collect Da te/Time: 02/25/2024 10:[address] [facility] ID: [id number] [address] [place] [address], [phone] LOINC: 09453-6 Test Value Unit Reference Range Code Code System Flag BEDSIDE GLUCOSE 114 mg/dl L=74 H=106 25191-8 LOINC H RESPIRATORY 4 PLEX COVID FLU RSV PCR - Collect Date/Time: 02/25/2024 10:[address] [facility] ID: [id number] [address] [place] [address], [phone] LOINC: 19260-7 Test Value Unit Reference Range Code Code System Flag SARS CoV2 PCR NEGATIVE FLU A PCR NEGATIVE FLU B PCR NEGATIVE RSV PCR NEGATIVE SEND TO IF? YES URINALYSIS w/Microscopy/C&S if indicated - Collect Date/Time: 02/25/2024 10:[address] [facility] ID: [id number] [address] [place] [address], [phone] LOINC: 01347-2 Test Value Unit Reference Range Code Code System Flag UR SOURCE RAMOS CATH 07506-4 LOINC COLOR LT YELLOW YELLOW 5778-6 LOINC CLARITY CLEAR CLEAR 47564-2 LOINC SPEC GRAVITY 1.015 1.000-1.030 5811-5 LOINC PH 5.0 5.0 - 6.5 5803-2 LOINC LEUK EST NEGATIVE NEGATIVE 5799-2 LOINC NITRATE NEGATIVE NEGATIVE PROTEIN NEGATIVE NEGATIVE 5804-0 LOINC GLUCOSE 3+ NEGATIVE 97932-5 LOINC KETONES NEGATIVE NEGATIVE 36900-3 LOINC UROBILINOGEN 0.2 NEGATIVE 5818-0 LOINC BILIRUBIN NEGATIVE NEGATIVE 44998-8 LOINC BLOOD 3+ NEGATIVE 84357-4 LOINC WBC 0-2 0 - 2 08977-6 LOINC RBC 5-10 0 - 2 14290-0 LOINC A EPITHELIAL OCCASIONA RARE-FEW 96324-1 LOINC BACTERIA FEW NONE SEEN 17387-0 LOINC MUCUS NONE SEEN NONE SEEN 8247-9 LOINC YEAST NOT PRESENT NOT PRESENT 25274-6 LOINC CASTS SEE BELOW 50327-8 LOINC CRYSTALS NONE SEEN 04566-3 LOINC CULTURE? NO 8251-1 LOINC DIAGNOSIS N/A BEDSIDE GLUCOSE - Collect Da te/Time: 02/25/2024 10:[address] [facility] ID: [id number] [address] [place] [address], [phone] LOINC: 49354-2 Test Value Unit Reference Range Code Code System Flag BEDSIDE GLUCOSE 62 mg/dl L=74 H=106 65214-1 LOINC L ETHANOL (ALCOHOL) - Collect Date/Time: 02/25/2024 09:[address] [facility] ID: [id number] [address] [place] [address], [id number] LOINC: 5643-2 Test Value Unit Reference Range Code Code System Flag ALCOHOL < 10.00 mg/dL L=0.00 H=50.00 5643-2 LOINC CBC W/ DIFF - Collect Date/T abhay: 02/25/2024 09:[address] [facility] ID: [id number] [address] [place] [address], [phone] LOINC: 98868-8 Test Value Unit Reference Range Code Code System Flag WBC 6.5 10^3uL L=4.8 H=10.8 RBC 4.24 10^6uL L=4.20 H=5.40 HEMOGLOBIN 11.2 g/dL L=12.0 H=16.0 718-7 LOINC L HEMATOCRIT 34.9 VOL% L=37.0 H=47.0 4544-3 LOINC L MCV 82.3 fL L=81.0 H=99.0 MCH 26.4 pg L=27.0 H=32.0 L MCHC 32.1 g/dL L=32.0 H=36.0 PLATELETS 217 10^3uL L=100 H=400 86390-2 LOINC RDW L=11.7 H=15.5 %GRAN 45.9 % L=40.0 H=70.0 79497-7 LOINC %LYMPH 38.6 % L=20.0 H=45.0 736-9 LOINC %MONO 9.6 % L=2.0 H=10.0 99758-4 LOINC %EOS 4.5 % L=0.0 H=6.0 713-8 LOINC %BASO 1.2 % L=0.0 H=3.0 706-2 LOINC #NEUT 3.0 10^3uL L=1.9 H=7.6 80929-7 LOINC #LYMPH 2.5 10^3uL L=0.9 H=4.9 54610-0 LOINC #MONO 0.6 10^3uL L=0.1 H=0.9 59625-2 LOINC #EOS 0.3 10^3uL L=0.0 H=0.6 712-0 LOINC #BASO 0.08 10^3uL L=0.00 H=0.10 30183-8 LOINC #IM GRANS 0.0 10^3uL L=0.0 H=7.0 11162-6 LOINC %IM GRANS 0.2 % L=0.0 H=5.0 15815-9 LOINC %NRB 0.0 L=0.0 H=0.2 82067-3 LOINC #NRB 0.000 L=0.000 H=0.012 04912-3 LOINC MANUAL DIFF NOT INDICATED RBC MORPH SEE BELOW ANISO NORMAL:NONE SEEN 702-1 LOINC MACRO NORMAL:NONE SEEN MICRO 2+ NORMAL:NONE SEEN NAPOLEON NORMAL:NONE SEEN HYPO NORMAL:NONE SEEN POLYC NORMAL:NONE SEEN COMPREHENSIVE METABOLIC PANE L - Collect Date/Time: 02/25/2024 09:[address] [facility] ID: [id number] [address] [place], [place], [phone] LOINC: 99846-4 Test Value Unit Reference Range Code Code System Flag FASTING UNKNOWN BUN 34 mg/dL L=7 H=20 3094-0 LOINC H CREATININE 1.40 mg/dL L=0.52 H=1.04 2160-0 LOINC H GLUCOSE 70 mg/dL L=74 H=106 2345-7 LOINC L SODIUM 140 mmol/L L=132 H=144 2951-2 LOINC POTASSIUM 4.2 mmol/L L=3.5 H=5.1 2823-3 LOINC CHLORIDE 106 mmol/L L=98 H=107 2075-0 LOINC CO2 18.0 mmol/L L=22.0 H=30.0 2028-9 LOINC L ANION GAP 20 L=10 H=20 81524-4 LOINC OSMOLALITY 296 mOs/kG L=280 H=296 13054-3 LOINC BUN/CREAT 24.3 3097-3 LOINC CALCIUM 8.7 mg/dL L=8.3 H=10.5 69328-5 LOINC AST 95 U/L L=15 H=46 1920-8 LOINC H ALT 126 U/L L=9 H=72 1742-6 LOINC H ALKALINE PHOS 61 U/L L=38 H=126 6768-6 LOINC TOTAL BILI 0.3 mg/dL L=0.2 H=1.3 1975-2 LOINC ALBUMIN 3.9 G/dL L=3.5 H=5.0 1751-7 LOINC TOTAL PROTEIN 7.5 g/L L=6.3 H=8.2 2885-2 LOINC A/G RATIO 1.1 21356-5 LOINC AGE 48 16574-2 LOINC eGFR NON-AFR 43 ml/min eGFR AFR AMER 52 ml/min LIPASE - Collect Date/Time: 02/25/2024 09:[address] [facility] ID: [id number] [address] [place] [address], [phone] LOINC: 3040-3 Test Value Unit Reference Range Code Code System Flag LIPASE 141 U/L L=23 H=300 3040-3 LOINC PRO BNP - Collect Date/Time: 02/25/2024 09:50 [facility] ID: [id number] [address] [place] [address], [phone] LOINC: 71460-3 Test Value Unit Reference Range Code Code System Flag Pro BNP2 96 pg/mL L=0 H=450 54602-0 LOINC TROPONIN LEVEL - Collect Forrest e/Time: 02/25/2024 09:50 [facility] ID: [id number] [address] [place] [address], [phone] LOINC: 42967-0 Test Value Unit Reference Range Code Code System Flag TROPONIN < 0.012 ng/mL L=0.000 H=0.033 57287-7 LOINC ARTERIAL BLOOD GAS - Collect Date/Time: 02/25/2024 09:50 [facility] ID: [id number] [address] [place] [address], [id number] LOINC: 78087-0 Test Value Unit Reference Range Code Code System Flag pH 7.41 L=7.35 H=7.45 2753-2 LOINC PO2 206.0 mmHg L=80.0 H=100 79770-6 LOINC H PCO2 30.0 mmHg L=35.0 H=45.0 31908-7 LOINC L BE -4.0 mmol/L L=0.0 H=2.0 43910-7 LOINC L BEecf -5.9 mmol/L L=0.0 H=2.0 42668-0 LOINC L HCO3 19.0 mmol/L L=22.0 H=26.0 28790-4 LOINC L A-aDO2 464 mmHg L=7 H=13 92282-2 LOINC H O2Hb 97.2 % L=85.0 H=100 22968-4 LOINC sO2m 100.0 % L=85.0 H=100 [place] [address]-9 LOINC PUNCTURE SITE RIGHT RADIAL FIO2 100 % D DIMER - Collect Date/Time: 02/25/2024 09:[address] [facility] ID: [id number] [address] [place] [address], [phone] LOINC: Test Value Unit Reference Range Code Code System Flag DDIMER 0.97 mg/L FEU L=0.00 H=0.50 H BEDSIDE GLUCOSE - Collect Da te/Time: 02/25/2024 09:[address] [facility] ID: [id number] [address] [place] [address], [phone] LOINC: 27178-5 Test Value Unit Reference Range Code Code System Flag BEDSIDE GLUCOSE 79 mg/dl L=74 H=106 49850-3 LOINC CHEST 1V PLACEMENT - Complet ed: 02/25/2024 10:10 LOINC: EXAM DESCRIPTION: CHEST 1V PLACEMENT REASON FOR STUDY: Cardiac arrest today. Respiratory failure. Intubation. TECHNIQUE: Frontal radiographic view of the chest COMPARISON: None FINDINGS: LUNGS/PLEURAE: Small lung volumes. No consolidation or large pleural effusion. There is no pneumothorax. HEART/MEDIASTINUM: Heart size within normal limits. Normal mediastinal contours. HARDWARE/LINES/TUBES: Tip of the endotracheal tube is in the proximal mainstem bronchus. Retraction 3 cm recommended. Enteric tube traverses below the diaphragm with its tip out of the field of view. BONES: No acute findings. IMPRESSION: ? ? The tip of the endotracheal tube is in the proximal mainstem bronchus. Retraction 3 cm recommended. ? ? Enteric tube traverses below the diaphragm with its tip out of the field of view. ? ? Small lung volumes. These findings were discussed with Roverto Pichardo by MARICHUY at 10:26 am central standard time on 02/25/2024 . THIS IS AN ELECTRONICALLY VERIFIED FINAL REPORT 02/25/2024 10:26 AM - Electronically signed by Boaz Gallegos M.D. LB: MARICHUY Report ID: [id number] Reading Location: [id number] CT BRAIN WO CONTRAST - Compl eted: 02/25/2024 12:29 LOINC: EXAM DESCRIPTION: CT BRAIN WO CONTRAST REASON FOR STUDY: Altered mental status. Unresponsive today. TECHNIQUE: Axial images acquired through the brain without intravenous contrast. Images stored on PACS. Automated exposure control was used as a dose optimization technique for this examination. COMPARISON: None FINDINGS: BRAIN: No hemorrhage, edema or mass effect. Normal white matter. The milan-white matter differentiation is diffusely preserved. Basilar cisterns are patent. EXTRA-AXIAL SPACES: No fluid collections. No masses. CALVARIUM: No fracture. SINUSES/MASTOIDS: No fluid or mucosal thickening. ORBITS: No significant abnormality. OTHER: Enteric and endotracheal tubes are only partially visualized. Intracranial atherosclerosis. The skull base, craniocervical junction, and extracranial soft tissues are unremarkable. IMPRESSION: ? ? No acute intracranial abnormality by CT criteria. THIS IS AN ELECTRONICALLY VERIFIED FINAL REPORT 02/25/2024 12:34 PM - Electronically signed by Boaz Gallegos M.D. LB: MARICHUY Report ID: [id number] Reading Location: [id number] CT CHEST PE ANGIO W/ CONTRAS T - Completed: 02/25/2024 12:29 LOINC: 66279-2 EXAM DESCRIPTION: CT CHEST PE ANGIO W/ CONTRAST REASON FOR STUDY: Altered mental status today. Unresponsive. TECHNIQUE: CT angiogram of the chest performed with intravenous contrast using helical scanning technique with dynamic intravenous contrast injection. Reconstructed coronal and sagittal MPR images reviewed. All images stored on PACS. 3D MIP images rendered on scanning unit and reviewed at time of interpretation. Automated exposure control was used as a dose optimization technique for this examination. CONTRAST TYPE/DOSE: 80 cc of Isovue 370 injected via left antecubital vein COMPARISON: Chest radiograph 02/25/2024 REFERENCE: Per ACR white paper recommendations, unless otherwise specified no follow-up imaging is recommended for incidental renal and adrenal lesions per consensus recommendations based on imaging criteria. Further lab evaluation could be pursued based on clinical findings. FINDINGS: VASCULATURE: Suboptimal opacification main pulmonary artery. The segmental pulmonary arteries are not well opacified and incompletely evaluated. There is also mild motion artifact. No thoracic aortic aneurysm. Motion artifact precludes evaluation of the ascending thoracic aorta. 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 LUNGS: Expiratory exam and motion artifact limits fine detail evaluation. Mild bibasilar atelectasis. PLEURA: No pneumothorax or pleural effusion. MEDIASTINUM/PAULO: No mediastinal or hilar lymphadenopathy. HEART: Heart projects borderline enlarged. Mild coronary artery calcification. No pericardial effusion. AXILLA: No lymphadenopathy. CHEST WALL: No masses. No subcutaneous air. HARDWARE/LINES/TUBES: Endotracheal tube terminates above the antolin. The enteric tube traverses below the diaphragm within the stomach. UPPER ABDOMEN: Prior cholecystectomy. Small amount of pneumobilia is favored to be post procedural. Correlation for history of sphincterotomy. Normal heterogeneous enhancement of the spleen. MUSCULOSKELETAL: Mild thoracic spondylosis. OTHER: No significant abnormality. IMPRESSION: ? ? Suboptimal opacification of the pulmonary arteries. Mild motion artifact limits fine detail evaluation of the segmental pulmonary arteries. No large central pulmonary embolism. ? ? Mild bibasilar atelectasis. ? ? Aberrant right subclavian artery. ? ? Small amount of pneumobilia is favored to be post procedural. Correlation for history of sphincterotomy/ERCP. THIS IS AN ELECTRONICALLY VERIFIED FINAL REPORT 02/25/2024 12:47 PM - Electronically signed by Boaz Gallegos M.D. LB: MARICHUY Report ID: [id number] Reading Location: [place] [address] Social History Type Status Start Date End Date Code Code Syst em Sex Female Hospital Discharge Instructions Should you have any questions prior to discharge, please contact a member of your healthcare team. If you have left the hospital and have any questions, please contact your primary care physician. Reason For Referral No Data Found Procedures Procedure Name Date Status Code Code Syste m Intubation, endotracheal, emergency procedure 02/25/2024 c ompleted 68611 CPT Plan of Treatment No Data Found Encounters Encounter Diagnosis Start Date Code Code Sys tem Cardiac arrest, cause unspecified 02/25/2024 SNOMED-CT Personal Care Team Section Performer Name Performer Role Active Date Inactive MARIBELL Campuzano PCP - Primary care physician 6 Imaging Narrative Notes
--- OUTSIDE RECORDS SUMMARY | 2025-09-30 23:16 | XMS_ITS | Encounter Summary ---
Author Organization [employer] [facility] Address [address] [place] [address] Care Team Providers Care Linen Tech Name Role Phone Jordon Dennis DO Primary Care Provider [phone] Encounter Details Date Type Department Care Team (Late st Contact Info) Description 03/27/2003 Outpatient Historical [facility] Internal Medicine [address] [place] [address] Chip Ruiz MD [address] [facility] [address] [place] [address] Social History Tobacco Use Types Packs/Day Years Used Date Smoking Tobacco: Never Assessed Comments Unknown Sex and Gender Information Value Date Recorded Sex Assigned at Female 08/29/2023 2:58 PM OPTIONS ADVISOR Legal Sex Female 1:55 AM OPTIONS ADVISOR Gender Identity Female 08/29/2023 2:58 PM OPTIONS ADVISOR Sexual Orientation Straight 08/29/2023 2: 58 PM OPTIONS ADVISOR documented as of this encounter Plan of Treatment Not on file documented as of this encounter Visit Diagnoses Not on filedocumented in this encounter Additional Health Concerns Infection Onset Date Last Indicated Resolved Time R/O C. diff 02/28/2024 02/28/2024 02/29/2024 8:13 AM CDT documented as of this encounter Care Teams Linen Tech Relationship Specialty Start Date End Date Jordon Dennis DO [address] [place] [address] PCP - General Family Practice 02/26/24 documented as of this encounter
--- OUTSIDE RECORDS SUMMARY | 2025-09-30 23:16 | XMS_ITS | Encounter Summary ---
Author Organization [employer] [facility] Address [address] [place] [address] Care Team Providers Care Leveler Helper Name Role Phone Jordon Dennis DO Primary Care Provider [phone] Encounter Details Date Type Department Care Team (Late st Contact Info) Description 05/08/2003 Outpatient Historical [facility] Internal Medicine [address] [place] [address] Chip Ruiz MD [address] [facility] [address] [place] [address] Social History Tobacco Use Types Packs/Day Years Used Date Smoking Tobacco: Never Assessed Comments Unknown Sex and Gender Information Value Date Recorded Sex Assigned at Female 08/29/2023 2:58 PM FLOOR FINISHER HELPER Legal Sex Female 1:55 AM FLOOR FINISHER HELPER Gender Identity Female 08/29/2023 2:58 PM FLOOR FINISHER HELPER Sexual Orientation Straight 08/29/2023 2: 58 PM FLOOR FINISHER HELPER documented as of this encounter Plan of Treatment Not on file documented as of this encounter Visit Diagnoses Not on filedocumented in this encounter Additional Health Concerns Infection Onset Date Last Indicated Resolved Time R/O C. diff 02/28/2024 02/28/2024 02/29/2024 8:13 AM CDT documented as of this encounter Care Teams Leveler Helper Relationship Specialty Start Date End Date Jordon Dennis DO [address] [place] [address] PCP - General Family Practice 02/26/24 documented as of this encounter
--- OUTSIDE RECORDS SUMMARY | 2025-09-30 23:16 | XMS_ITS | Encounter Summary ---
Author Organization [employer] [facility] Address [address] [place] [address] Care Team Providers Care Hog Sawyer Name Role Phone Jordon Dennis DO Primary Care Provider [phone] Encounter Details Date Type Department Care Team (Late st Contact Info) Description 03/27/2003 Outpatient Historical [facility] Internal Medicine [address] [place] [address] Chip Ruiz MD [address] [facility] [address] [place] [address] Social History Tobacco Use Types Packs/Day Years Used Date Smoking Tobacco: Never Assessed Comments Unknown Sex and Gender Information Value Date Recorded Sex Assigned at Female 08/29/2023 2:58 PM SCANNER OPERATOR Legal Sex Female 1:55 AM SCANNER OPERATOR Gender Identity Female 08/29/2023 2:58 PM SCANNER OPERATOR Sexual Orientation Straight 08/29/2023 2: 58 PM SCANNER OPERATOR documented as of this encounter Plan of Treatment Not on file documented as of this encounter Visit Diagnoses Not on filedocumented in this encounter Additional Health Concerns Infection Onset Date Last Indicated Resolved Time R/O C. diff 02/28/2024 02/28/2024 02/29/2024 8:13 AM CDT documented as of this encounter Care Teams Hog Sawyer Relationship Specialty Start Date End Date Jordon Dennis DO [address] [place] [address] PCP - General Family Practice 02/26/24 documented as of this encounter
[2025-09-30 23:18] VITALS: BP 140/94; PULSE 83; RESP 16; TEMP 35.9; O2SAT 98
--- NOTE | 2025-09-30 23:28 | ED.LOWEXIN ---
HPI - Extremity Injury (Lower) General Chief Complaint: Extremity Injury, Lower Stated Complaint: LEG PAIN Time Seen by Provider: 09/30/25 23:24 Source: patient and family Mode of arrival: ambulatory Limitations: no limitations History of Present Illness HPI Narrative: PATIENT WAS MANAGING HER DOG SOMEHOW LOST HER BALANCE AND FELL IN COMPLAINING OF RIGHT FOOT RIGHT ANKLE PAIN. NO LOSS OF CONSCIOUSNESS, DENIES OTHER INJURIES. HISTORY OF PERIPHERAL NEUROPATHY WITH CHRONIC BALANCE DISORDER Related Data Home Medications ?Medication ?Instructions ?Recorded ?Confirmed ?Last Taken ?Type aspirin 81 mg tablet,delayed 81 mg PO DAILY 01/04/24 04/14/24 Unknown History release (Adult Low Dose Aspirin) fexofenadine 180 mg tablet 180 mg PO DAILY 01/04/24 04/14/24 Unknown History (Gladys Allergy) magnesium oxide 400 mg PO DAILY 01/04/24 04/14/24 Unknown History acetaminophen 500 mg capsule 1,000 mg PO Q6H PRN 01/31/24 04/14/24 Unknown History cholecalciferol (vitamin D3) 50 50 mcg PO DAILY 03/06/24 04/14/24 Unknown History mcg (2,000 unit) capsule hydralazine 10 mg tablet 10 mg PO TID 03/06/24 04/14/24 Unknown History sumatriptan succinate 50 mg tablet 25 mg PO DAILY PRN 03/06/24 04/14/24 Unknown History (Imitrex) tizanidine 2 mg capsule (Zanaflex) 2 mg PO TID PRN 03/06/24 04/14/24 Unknown History trazodone 50 mg tablet 25 mg PO QHS PRN 03/06/24 04/14/24 Unknown History Allergies Allergy/AdvReac Type Severity Reaction Status Date / Time azithromycin Allergy Mild Nausea Verified 09/30/25 23:26 vancomycin Allergy Rash Verified 09/30/25 23:26 Review of Systems Review of Systems: All systems reviewed & are unremarkable except as noted in HPI and below PMFSH Past Medical History Medical History Lymphedema Allergies Heart disease Neuroma of right lower extremity after surgery Cholecystectomy planned Surgical History Surgical History H/O lumpectomy History of heart artery stent Tubal ligation status Hx of tonsillectomy Family History Family History Mother Breast cancer Father Pancreatic cancer Grandparent Esophageal cancer Leukemia Social History Social History Smoking status: Never smoker Alcohol intake: never Substance use: never Substance use type: marijuana Exam Narrative: GENERAL APPEARANCE: WELL-DEVELOPED, WELL-NOURISHED SKIN: NORMAL COLOR HEAD: NORMOCEPHALIC, NONTRAUMATIC EYES: CLEAR CONJUNCTIVA ENT: OROPHARYNX NORMAL, EARS NORMAL, NOSE NORMAL NECK: SUPPLE, NONTENDER CHEST AND RESPIRATORY: AIRWAY PATENT, NO RESPIRATORY DISTRESS, NO ACCESSORY MUSCLE USE HEART: REGULAR RATE/RHYTHM ABDOMEN: SOFT, NONTENDER, NO ORGANOMEGALY, QUIET BOWEL SOUNDS VASCULAR: NORMAL PERIPHERAL PULSES, NORMAL CAPILLARY REFILL. MUSCULOSKELETAL: DIFFUSE TENDERNESS RIGHT ANKLE MAINly LATERALLY WITH SLIGHT SWELLING AND SEVERE LIMITED RANGE OF MOTION BECAUSE OF PAIN, DIFFUSE TENDERNESS OF THE RIGHT FOOT DORSALLY AND LATERALLY, NO BRUISES, NO DEFORMITY NEUROLOGIC: ALERT AND ORIENTED ?3, UNIVERSITY PROFESSOR IS NORMAL TESTED, NO GROSS MOTOR DEFICIT Course Vital Signs Vital signs: Vital Signs Temperature 35.9 C L 09/30/25 23:18 Pulse Rate 83 09/30/25 23:18 Respiratory Rate 16 09/30/25 23:18 Blood Pressure 140/94 H 09/30/25 23:18 Pulse Oximetry 98 09/30/25 23:18 Oxygen Delivery Room Air 09/30/25 23:18 Temperature 35.9 C L 09/30/25 23:18 Pulse Rate 83 09/30/25 23:18 Respiratory Rate 16 09/30/25 23:18 Blood Pressure 140/94 H 09/30/25 23:18 Pulse Oximetry 98 09/30/25 23:18 Oxygen Delivery Room Air 09/30/25 23:18 MDM MDM Narrative Medical decision making narrative: DIFFERENTIAL DIAGNOSIS INCLUDE ANKLE FRACTURE VERSUS SPRAIN/STRAIN FOOT FRACTURE VERSUS SPRAIN/STRAIN X-RAY OF RIGHT FOOT SHOWED no acute osseous abnormality X-RAY OF THE RIGHT ANKLE SHOWED questionable avulsion fracture of the medial malleolus Differential Diagnosis Differential Diagnosis: ABOVE Imaging Data My impression: Right foot x-ray showed no acute osseous abnormality Radiologist's impression: X-ray of the right ankle showed medial malleolus tip tiny possible avulsion otherwise intact Critical Care Time Critical Care Time Critical Care Time: No Discharge Plan Discharge Clinical Impression: Closed avulsion fracture of right ankle Patient Disposition: Home Condition: Stable Instructions: Ankle Fracture (DC), Splint Care (ED) Additional Instructions: RETURN IF SYMPTOMS ARE WORSENING , CALL YOUR FAMILY PHYSICIAN FOR APPOINTMENT, TAKE TYLENOL NEEDED FOR ACHES AND PAIN, CONTINUE HOME MEDICATIONS. ICE PACK 20 MINUTES/HOUR FOR THE NEXT 24 HOURS CRUTCHES Patient Language: Tajik Prescriptions: New hydrocodone-acetaminophen 5-325 mg tablet 1 tablet PO Q6H Qty: 20 0RF No Action acetaminophen 500 mg capsule 1,000 mg PO Q6H PRN aspirin [Adult Low Dose Aspirin] 81 mg tablet,delayed release (DR/EC) 81 mg PO DAILY fexofenadine [Gladys Allergy] 180 mg tablet 180 mg PO DAILY magnesium oxide 400 mg magnesium tablet 400 mg PO DAILY ezetimibe 10 mg tablet 10 mg PO DAILY Qty: 90 0RF clopidogrel 75 mg tablet 75 mg PO DAILY Qty: 90 0RF Jardiance 25 mg tablet 25 mg PO DAILY Qty: 90 0RF Novolin 70-30 FlexPen U-100 100 unit/mL (70-30) insulin pen See Rx Instructions subcut .COMPLEX Qty: 15 11RF Rx Instructions: 25 units in AM, 15 units in PM subcutaneously; cholecalciferol (vitamin D3) 50 mcg (2,000 unit) capsule 50 mcg PO DAILY hydralazine 10 mg tablet 10 mg PO TID sumatriptan succinate [Imitrex] 50 mg tablet 25 mg PO DAILY PRN tizanidine [Zanaflex] 2 mg capsule 2 mg PO TID PRN trazodone 50 mg tablet 25 mg PO QHS PRN ferrous sulfate 325 mg (65 mg iron) tablet See Rx Instructions .ROUTE .COMPLEX Qty: 90 0RF Dose Instruction: 325 MG ORALLY DAILY Rx Instructions: 325 MG ORALLY DAILY losartan 100 mg tablet 100 mg PO DAILY Qty: 90 0RF propranolol 120 mg capsule,extended release 24hr See Rx Instructions .ROUTE .COMPLEX Qty: 90 0RF Dose Instruction: TAKE 1 CAPSULE BY MOUTH EVERY DAY Rx Instructions: TAKE 1 CAPSULE BY MOUTH EVERY DAY amitriptyline 75 mg tablet See Rx Instructions .ROUTE .COMPLEX Qty: 90 0RF Dose Instruction: TAKE 1 TABLET ORALLY EVERY DAY AT BEDTIME Rx Instructions: TAKE 1 TABLET ORALLY EVERY DAY AT BEDTIME torsemide 20 mg tablet See Rx Instructions .ROUTE .COMPLEX Qty: 180 2RF Dose Instruction: TAKE 1 TABLET BY MOUTH TWICE A DAY Rx Instructions: TAKE 1 TABLET BY MOUTH TWICE A DAY spironolactone 25 mg tablet See Rx Instructions .ROUTE .COMPLEX Qty: 90 2RF Dose Instruction: TAKE 1 TABLET BY MOUTH EVERY DAY Rx Instructions: TAKE 1 TABLET BY MOUTH EVERY DAY atorvastatin 80 mg tablet See Rx Instructions .ROUTE .COMPLEX Qty: 90 2RF Dose Instruction: TAKE 1 TABLET BY MOUTH EVERY DAY Rx Instructions: TAKE 1 TABLET BY MOUTH EVERY DAY Follow-up/Referrals: Kevin Chicas MD [Physician, Orthopedics] - 10/05/25 Cody Yarbrough MD [Primary Care Provider, Internal Medicine]
--- OUTSIDE RECORDS SUMMARY | 2025-09-30 23:29 | XMS_ITS | Clinical Summary ---
Author Organization [facility] Address [facility] [place] [address] Care Team Providers Care Collective Bargaining Specialist Name Role Phone Himanshu Yarbrough MD Primary Care Provider [phone] Allergies Active Allergy Reactions Criticality Noted Date [...] to Health Maintenance Insurance CIG Care Teams Collective Bargaining Specialist Relationship Specialty Start Date End Date Himanshu Yarbrough MD [address] [place] [address] PCP - General INTERNAL MEDICINE 07/24/24
--- OUTSIDE RECORDS SUMMARY | 2025-09-30 23:29 | XMS_ITS ---
Author Organization Unknown Address [address] [place] [phone] Phone Care Team Providers Care Radiology Specialist Name Role Phone RICKEY Perry Attending Unavailable ARCHANA REYNA Primary Unavailable Results TROPONIN LEVEL - Collect Forrest e/Time: 02/25/2024 13:21 [facility] ID: [id number] [address] [place] [address], [id number] LOINC: 56492-9 Test Value Unit Reference Range Code Code System Flag TROPONIN < 0.012 ng/mL L=0.000 H=0.033 26767-1 LOINC BEDSIDE GLUCOSE - Collect Da te/Time: 02/25/2024 12:58 [facility] ID: [id number] [address] [place] [address], [id number] LOINC: 10166-3 Test Value Unit Reference Range Code Code System Flag BEDSIDE GLUCOSE 145 mg/dl L=74 H=106 84970-1 LOINC H ARTERIAL BLOOD GAS - Collect Date/Time: 02/25/2024 12:30 [facility] ID: [id number] [address] [place] [address], [id number] LOINC: 03419-6 Test Value Unit Reference Range Code Code System Flag pH 7.49 L=7.35 H=7.45 2753-2 LOINC H PO2 279.0 mmHg L=80.0 H=100 41041-9 LOINC H PCO2 29.0 mmHg L=35.0 H=45.0 57736-8 LOINC L BE -0.3 mmol/L L=0.0 H=2.0 66100-1 LOINC L BEecf -1.9 mmol/L L=0.0 H=2.0 74158-9 LOINC L HCO3 21.8 mmol/L L=22.0 H=26.0 34995-8 LOINC L A-aDO2 40 mmHg L=7 H=13 73076-8 LOINC H O2Hb 98.1 % L=85.0 H=100 96887-6 LOINC sO2m 100.0 % L=85.0 H=100 DONOVAN TEST NOT PERFORMED 31005-3 LOINC PUNCTURE SITE LEFT RADIAL FIO2 50 % BEDSIDE GLUCOSE - Collect Da te/Time: 02/25/2024 10:33 [facility] ID: [id number] [address] [place] [address], [id number] LOINC: 72305-0 Test Value Unit Reference Range Code Code System Flag BEDSIDE GLUCOSE 114 mg/dl L=74 H=106 96895-2 LOINC H RESPIRATORY 4 PLEX COVID FLU RSV PCR - Collect Date/Time: 02/25/2024 10:22 [facility] ID: [id number] [address] [place] [address], [id number] LOINC: 51755-4 Test Value Unit Reference Range Code Code System Flag SARS CoV2 PCR NEGATIVE FLU A PCR NEGATIVE FLU B PCR NEGATIVE RSV PCR NEGATIVE SEND TO IF? YES URINALYSIS w/Microscopy/C&S if indicated - Collect Date/Time: 02/25/2024 10:20 [facility] ID: [id number] [address] [place] [address], [id number] LOINC: 86102-3 Test Value Unit Reference Range Code Code System Flag UR SOURCE RAMOS CATH 25010-2 LOINC COLOR LT YELLOW YELLOW 5778-6 LOINC CLARITY CLEAR CLEAR 07458-1 LOINC SPEC GRAVITY 1.015 1.000-1.030 5811-5 LOINC PH 5.0 5.0 - 6.5 5803-2 LOINC LEUK EST NEGATIVE NEGATIVE 5799-2 LOINC NITRATE NEGATIVE NEGATIVE PROTEIN NEGATIVE NEGATIVE 5804-0 LOINC GLUCOSE 3+ NEGATIVE 36034-6 LOINC KETONES NEGATIVE NEGATIVE 76402-2 LOINC UROBILINOGEN 0.2 NEGATIVE 5818-0 LOINC BILIRUBIN NEGATIVE NEGATIVE 83570-8 LOINC BLOOD 3+ NEGATIVE 56679-0 LOINC WBC 0-2 0 - 2 20456-3 LOINC RBC 5-10 0 - 2 19670-2 LOINC A EPITHELIAL OCCASIONA RARE-FEW 75021-4 LOINC BACTERIA FEW NONE SEEN 26109-0 LOINC MUCUS NONE SEEN NONE SEEN 8247-9 LOINC YEAST NOT PRESENT NOT PRESENT 00165-6 LOINC CASTS SEE BELOW 00721-8 LOINC CRYSTALS NONE SEEN 79893-8 LOINC CULTURE? NO 8251-1 LOINC DIAGNOSIS N/A BEDSIDE GLUCOSE - Collect Da te/Time: 02/25/2024 10:03 [facility] ID: [id number] [address] [place] [address], [id number] LOINC: 44752-4 Test Value Unit Reference Range Code Code System Flag BEDSIDE GLUCOSE 62 mg/dl L=74 H=106 12777-4 LOINC L ETHANOL (ALCOHOL) - Collect Date/Time: 02/25/2024 09:50 [facility] ID: [id number] [address] [place] [address], [id number] LOINC: 5643-2 Test Value Unit Reference Range Code Code System Flag ALCOHOL < 10.00 mg/dL L=0.00 H=50.00 5643-2 LOINC CBC W/ DIFF - Collect Date/T abhay: 02/25/2024 09:50 [facility] ID: [id number] [address] [place] [address], [id number] LOINC: 09117-8 Test Value Unit Reference Range Code Code System Flag WBC 6.5 10^3uL L=4.8 H=10.8 RBC 4.24 10^6uL L=4.20 H=5.40 HEMOGLOBIN 11.2 g/dL L=12.0 H=16.0 718-7 LOINC L HEMATOCRIT 34.9 VOL% L=37.0 H=47.0 4544-3 LOINC L MCV 82.3 fL L=81.0 H=99.0 MCH 26.4 pg L=27.0 H=32.0 L MCHC 32.1 g/dL L=32.0 H=36.0 PLATELETS 217 10^3uL L=100 H=400 98529-5 LOINC RDW L=11.7 H=15.5 %GRAN 45.9 % L=40.0 H=70.0 37222-3 LOINC %LYMPH 38.6 % L=20.0 H=45.0 736-9 LOINC %MONO 9.6 % L=2.0 H=10.0 78350-5 LOINC %EOS 4.5 % L=0.0 H=6.0 713-8 LOINC %BASO 1.2 % L=0.0 H=3.0 706-2 LOINC #NEUT 3.0 10^3uL L=1.9 H=7.6 43850-0 LOINC #LYMPH 2.5 10^3uL L=0.9 H=4.9 90092-7 LOINC #MONO 0.6 10^3uL L=0.1 H=0.9 05500-8 LOINC #EOS 0.3 10^3uL L=0.0 H=0.6 712-0 LOINC #BASO 0.08 10^3uL L=0.00 H=0.10 95278-5 LOINC #IM GRANS 0.0 10^3uL L=0.0 H=7.0 36755-0 LOINC %IM GRANS 0.2 % L=0.0 H=5.0 68313-1 LOINC %NRB 0.0 L=0.0 H=0.2 43382-2 LOINC #NRB 0.000 L=0.000 H=0.012 91037-0 LOINC MANUAL DIFF NOT INDICATED RBC MORPH SEE BELOW ANISO NORMAL:NONE SEEN 702-1 LOINC MACRO NORMAL:NONE SEEN MICRO 2+ NORMAL:NONE SEEN POIK NORMAL:NONE SEEN HYPO NORMAL:NONE SEEN POLYC NORMAL:NONE SEEN COMPREHENSIVE METABOLIC PANE L - Collect Date/Time: 02/25/2024 09:50 [facility] ID: [id number] [address] [place], [place], [id number] LOINC: 37719-5 Test Value Unit Reference Range Code Code [...] LOINC L ANION GAP 20 L=10 H=20 69798-5 LOINC OSMOLALITY 296 mOs/kG L=280 H=296 98596-1 LOINC BUN/CREAT 24.3 3097-3 LOINC CALCIUM 8.7 mg/dL L=8.3 H=10.5 02693-2 LOINC AST 95 U/L L=15 H=46 1920-8 LOINC H ALT 126 U/L L=9 H=72 1742-6 LOINC H ALKALINE PHOS 61 U/L L=38 H=126 6768-6 LOINC TOTAL BILI 0.3 mg/dL L=0.2 H=1.3 1975-2 LOINC ALBUMIN 3.9 G/dL L=3.5 H=5.0 1751-7 LOINC TOTAL PROTEIN 7.5 g/L L=6.3 H=8.2 2885-2 LOINC A/G RATIO 1.1 36180-1 LOINC AGE 48 69365-5 LOINC eGFR NON-AFR 43 ml/min eGFR AFR AMER 52 ml/min LIPASE - Collect Date/Time: 02/25/2024 09:50 [facility] ID: [id number] [address] [place] [address], [id number] LOINC: 3040-3 Test Value Unit Reference Range Code Code System Flag LIPASE 141 U/L L=23 H=300 3040-3 LOINC PRO BNP - Collect Date/Time: 02/25/2024 09:50 [facility] ID: [id number] [address] [place] [address], [id number] LOINC: 04254-0 Test Value Unit Reference Range Code Code System Flag Pro BNP2 96 pg/mL L=0 H=450 74786-5 LOINC TROPONIN LEVEL - Collect Forrest e/Time: 02/25/2024 09:50 [facility] ID: [id number] [address] [place] [address], [id number] LOINC: 18432-6 Test Value Unit Reference Range Code Code System Flag TROPONIN < 0.012 ng/mL L=0.000 H=0.033 17939-6 LOINC ARTERIAL BLOOD GAS - Collect Date/Time: 02/25/2024 09:50 [facility] ID: [id number] [address] [place] [address], [id number] LOINC: 14042-8 Test Value Unit Reference Range Code Code System Flag pH 7.41 L=7.35 H=7.45 2753-2 LOINC PO2 206.0 mmHg L=80.0 H=100 72383-8 LOINC H PCO2 30.0 mmHg L=35.0 H=45.0 09064-6 LOINC L BE -4.0 mmol/L L=0.0 H=2.0 28526-1 LOINC L BEecf -5.9 mmol/L L=0.0 H=2.0 54110-2 LOINC L HCO3 19.0 mmol/L L=22.0 H=26.0 99931-5 LOINC L A-aDO2 464 mmHg L=7 H=13 77786-3 LOINC H O2Hb 97.2 % L=85.0 H=100 39370-6 LOINC sO2m 100.0 % L=85.0 H=[place] [address]-8 LOINC PUNCTURE SITE RIGHT RADIAL FIO2 100 % D DIMER - Collect Date/Time: 02/25/2024 09:50 [facility] ID: [id number] [address] [place] [address], [id number] LOINC: Test Value Unit Reference Range Code Code System Flag DDIMER 0.97 mg/L FEU L=0.00 H=0.50 H BEDSIDE GLUCOSE - Collect Da te/Time: 02/25/2024 09:29 [facility] ID: [id number] [address] [place] [address], [id number] LOINC: 39701-5 Test Value Unit Reference Range Code Code System Flag BEDSIDE GLUCOSE 79 mg/dl L=74 H=106 36433-0 LOINC CHEST 1V PLACEMENT - Complet ed: [...] 10:26 AM - Electronically signed by Boaz BENEDICT: MARICHUY Report ID: [id number] Reading Location: [id number] CT BRAIN WO CONTRAST - Compl eted: [...] Boaz Gallegos M.D. LB: MARICHUY Report ID: [id number] Reading Location: [id number] CT CHEST PE ANGIO W/ CONTRAS T - Completed: 02/25/2024 12:29 LOINC: 50216-7 EXAM DESCRIPTION: CT CHEST PE ANGIO W/ [...] Boaz Gallegos M.D. LB: MARICHUY Report ID: [id number] Reading Location: [id number] Social History Type Status Start Date End [...] Intubation, endotracheal, emergency procedure 02/25/2024 c ompleted 33705 CPT Plan of Treatment No Data Found Encounters Encounter Diagnosis Start Date Code Code Sys tem Cardiac arrest, cause unspecified 02/25/2024 SNOMED-CT Personal Care Team Section Performer Name Performer Role Active Date Inactive MARIBELL Campuzano PCP - Primary care physician 6 Imaging Narrative Notes
[2025-09-30] MEDS: HYDROcodone/acetaminophen (*CRX) 5-325 MG TABLET 1 TAB PO (23:37)
[2025-09-30] MEDS: IBUPROFEN 600 MG TABLET PO (23:37)
--- NOTE | 2025-10-01 00:21 | PC.NURSE ---
ERP DR MEMBRENO AT PT BEDSIDE FOR UPDATE OF IMAGING AND PLAN OF CARE.
== END 2025-10-01 01:00 | disposition home or self-care (01) ==
PROVIDERS: Emergency Provider Emergency Medicine; PCP Emergency Medicine Emergency Medical Services
DX: S82.51XA Displaced fracture of medial malleolus of right tibia, initial encounter for closed fracture (principal); W18.30XA Fall on same level, unspecified, initial encounter
CPT/HCPCS: 29515; 73610; 73630; 99284; A9270; L4350

== ENCOUNTER 2025-10-09 12:41 | Outpatient (CLI) | payer OTHER, SELFPAY ==
--- NOTE | ~2025-10-09 | US_ITS ---
EXAM/PROCEDURE: US arterial ankle brachial ind HISTORY: I73.9 - Peripheral vascular disease, unspecified COMPARISON: None available. TECHNIQUE: KILO test FINDINGS: Right and left brachial systolic pressure readings are 133 and 136 Right and left dorsalis pedis pressure readings are 136 and 163 Right and left posterior tibial pressure readings are 136 and could not obtained Right and left great toe pressure readings are 95 and 126 Right and left ABIs are 1.0 and 1.20 Right and left TBI's are 0.70 and 0.93 Plethysmography appears somewhat broadened in the proximal right lower extremity are normal distally; plethysmography appears within normal limits on left side. IMPRESSION: 1. Mild broadening of plethysmography for the right lower extremity may represent mild peripheral artery disease, although the right KILO, 1.0 is within normal limits. 2. Left ABIs are 1.20, and normal-appearing plethysmography. Reviewed, dictated and finalized at location A. AND DAM OPERATOR IMPRESSION: 1. Mild broadening of plethysmography for the right lower extremity may represe nt mild peripheral artery disease, although the right KILO, 1.0 is within normal limits. 2. Left ABIs are 1.20, and normal-appearing plethysmography.
--- OUTSIDE RECORDS SUMMARY | 2025-10-09 12:45 | XMS_ITS | Clinical Summary ---
Author Organization [facility] Address [facility] [place] [address] Care Team Providers Care Belt Loop Maker Name Role Phone Himanshu Yarbrough MD Primary Care Provider [phone] Allergies Active Allergy Reactions Criticality Noted Date [...] to Health Maintenance Insurance CIG Care Teams Belt Loop Maker Relationship Specialty Start Date End Date Himanshu Yarbrough MD [address] [place] [address] PCP - General INTERNAL MEDICINE 07/24/24
--- OUTSIDE RECORDS SUMMARY | 2025-10-09 12:45 | XMS_ITS | Encounter Summary ---
Author Organization [employer] [facility] Address [address] [place] [address] Care Team Providers Care Quality Control Tech Name Role Phone Jordon Dennis DO Primary Care Provider [phone] Encounter Details Date Type Department Care Team (Late st Contact Info) Description 05/08/2003 Outpatient Historical [facility] Internal Medicine [address] [place] [address] Chip Ruiz MD [address] [facility] [address] [place] [address] Social History Tobacco Use Types Packs/Day Years Used Date Smoking Tobacco: Never Assessed Comments Unknown Sex and Gender Information Value Date Recorded Sex Assigned at Female 08/29/2023 2:58 PM BEEF PLUCK TRIMMER Legal Sex Female 1:55 AM BEEF PLUCK TRIMMER Gender Identity Female 08/29/2023 2:58 PM BEEF PLUCK TRIMMER Sexual Orientation Straight 08/29/2023 2: 58 PM BEEF PLUCK TRIMMER documented as of this encounter Plan of Treatment Not on file documented as of this encounter Visit Diagnoses Not on filedocumented in this encounter Additional Health Concerns Infection Onset Date Last Indicated Resolved Time R/O C. diff 02/28/2024 02/28/2024 02/29/2024 8:13 AM CDT documented as of this encounter Care Teams Quality Control Tech Relationship Specialty Start Date End Date Jordon Dennis DO [address] [place] [address] PCP - General Family Practice 02/26/24 documented as of this encounter
--- OUTSIDE RECORDS SUMMARY | 2025-10-09 12:45 | XMS_ITS | Encounter Summary ---
Author Organization [employer] [facility] Address [address] [place] [address] Care Team Providers Care Sales Planner Name Role Phone Jordon Dennis DO Primary Care Provider [phone] Encounter Details Date Type Department Care Team (Late st Contact Info) Description 03/27/2003 Outpatient Historical [facility] Internal Medicine [address] [place] [address] Chip Ruiz MD [address] [facility] [address] [place] [address] Social History Tobacco Use Types Packs/Day Years Used Date Smoking Tobacco: Never Assessed Comments Unknown Sex and Gender Information Value Date Recorded Sex Assigned at Female 08/29/2023 2:58 PM CHEMICAL PRODUCTION TECHNICIAN Legal Sex Female 1:55 AM CHEMICAL PRODUCTION TECHNICIAN Gender Identity Female 08/29/2023 2:58 PM CHEMICAL PRODUCTION TECHNICIAN Sexual Orientation Straight 08/29/2023 2: 58 PM CHEMICAL PRODUCTION TECHNICIAN documented as of this encounter Plan of Treatment Not on file documented as of this encounter Visit Diagnoses Not on filedocumented in this encounter Additional Health Concerns Infection Onset Date Last Indicated Resolved Time R/O C. diff 02/28/2024 02/28/2024 02/29/2024 8:13 AM CDT documented as of this encounter Care Teams Sales Planner Relationship Specialty Start Date End Date Jordon Dennis DO [address] [place] [address] PCP - General Family Practice 02/26/24 documented as of this encounter
--- OUTSIDE RECORDS SUMMARY | 2025-10-09 12:45 | XMS_ITS | Encounter Summary ---
Author Organization [employer] [facility] Address [address] [place] [address] Care Team Providers Care Data Support Specialist Name Role Phone Jordon Dennis DO Primary Care Provider Encounter Details Date Type Department Care Team (Late st Contact Info) Description 03/27/2003 Outpatient Historical [facility] Internal Medicine [address] [place] [address] Chip Ruiz MD [address] [facility] [address] [place] [address] Social History Tobacco Use Types Packs/Day Years Used Date Smoking Tobacco: Never Assessed Comments Unknown Sex and Gender Information Value Date Recorded Sex Assigned at Female 08/29/2023 2:58 PM HOTEL SERVICE SUPERVISOR Legal Sex Female 1:55 AM HOTEL SERVICE SUPERVISOR Gender Identity Female 08/29/2023 2:58 PM HOTEL SERVICE SUPERVISOR Sexual Orientation Straight 08/29/2023 2: 58 PM HOTEL SERVICE SUPERVISOR documented as of this encounter Plan of Treatment Not on file documented as of this encounter Visit Diagnoses Not on filedocumented in this encounter Additional Health Concerns Infection Onset Date Last Indicated Resolved Time R/O C. diff 02/28/2024 02/28/2024 02/29/2024 8:13 AM CDT documented as of this encounter Care Teams Data Support Specialist Relationship Specialty Start Date End Date Jordon Dennis DO [address] [place] [address] PCP - General Family Practice 02/26/24 documented as of this encounter
--- OUTSIDE RECORDS SUMMARY | 2025-10-09 12:45 | XMS_ITS | Encounter Summary ---
Author Organization [employer] [facility] Address [address] [place] [address] Care Team Providers Care Medical Screener Name Role Phone Jordon Dennis DO Primary Care Provider [phone] Encounter Details Date Type Department Care Team (Late st Contact Info) Description 05/08/2003 Outpatient Historical [facility] Internal Medicine [address] [place] [address] Chip Ruiz MD [address] [facility] [address] [place] [address] Social History Tobacco Use Types Packs/Day Years Used Date Smoking Tobacco: Never Assessed Comments Unknown Sex and Gender Information Value Date Recorded Sex Assigned at Female 08/29/2023 2:58 PM COTTON CONVERTER Legal Sex Female 1:55 AM COTTON CONVERTER Gender Identity Female 08/29/2023 2:58 PM COTTON CONVERTER Sexual Orientation Straight 08/29/2023 2: 58 PM COTTON CONVERTER documented as of this encounter Plan of Treatment Not on file documented as of this encounter Visit Diagnoses Not on filedocumented in this encounter Additional Health Concerns Infection Onset Date Last Indicated Resolved Time R/O C. diff 02/28/2024 02/28/2024 02/29/2024 8:13 AM CDT documented as of this encounter Care Teams Medical Screener Relationship Specialty Start Date End Date Jordon Dennis DO [address] [place] [address] PCP - General Family Practice 02/26/24 documented as of this encounter
--- OUTSIDE RECORDS SUMMARY | 2025-10-09 12:45 | XMS_ITS | Encounter Summary ---
Author Organization [employer] [facility] Address [address] [place] [address] Care Team Providers Care Hatch Boss Name Role Phone Jordon Dennis DO Primary Care Provider [phone] Encounter Details Date Type Department Care Team (Late st Contact Info) Description 03/27/2003 Outpatient Historical [facility] Internal Medicine [address] [place] [address] Chip Ruiz MD [address] [facility] [address] [place] [address] Social History Tobacco Use Types Packs/Day Years Used Date Smoking Tobacco: Never Assessed Comments Unknown Sex and Gender Information Value Date Recorded Sex Assigned at Female 08/29/2023 2:58 PM NUTRITION AIDE Legal Sex Female 1:55 AM NUTRITION AIDE Gender Identity Female 08/29/2023 2:58 PM NUTRITION AIDE Sexual Orientation Straight 08/29/2023 2: 58 PM NUTRITION AIDE documented as of this encounter Plan of Treatment Not on file documented as of this encounter Visit Diagnoses Not on filedocumented in this encounter Additional Health Concerns Infection Onset Date Last Indicated Resolved Time R/O C. diff 02/28/2024 02/28/2024 02/29/2024 8:13 AM CDT documented as of this encounter Care Teams Hatch Boss Relationship Specialty Start Date End Date Jordon Dennis DO [address] [place] [address] PCP - General Family Practice 02/26/24 documented as of this encounter
--- OUTSIDE RECORDS SUMMARY | 2025-10-09 12:45 | XMS_ITS | Encounter Summary ---
Author Organization [employer] [facility] Address [address] [place] [address] Care Team Providers Care Layout Man Name Role Phone Jordon Dennis DO Primary Care Provider [phone] Encounter Details Date Type Department Care Team (Late st Contact Info) Description 03/27/2003 Outpatient Historical [facility] Internal Medicine [address] [place] [address] Chip Ruiz MD [address] [facility] [address] [place] [address] Social History Tobacco Use Types Packs/Day Years Used Date Smoking Tobacco: Never Assessed Comments Unknown Sex and Gender Information Value Date Recorded Sex Assigned at Female 08/29/2023 2:58 PM RISK OFFICER Legal Sex Female 1:55 AM RISK OFFICER Gender Identity Female 08/29/2023 2:58 PM RISK OFFICER Sexual Orientation Straight 08/29/2023 2: 58 PM RISK OFFICER documented as of this encounter Plan of Treatment Not on file documented as of this encounter Visit Diagnoses Not on filedocumented in this encounter Additional Health Concerns Infection Onset Date Last Indicated Resolved Time R/O C. diff 02/28/2024 02/28/2024 02/29/2024 8:13 AM CDT documented as of this encounter Care Teams Layout Man Relationship Specialty Start Date End Date Jordon Dennis DO [address] [place] [address] PCP - General Family Practice 02/26/24 documented as of this encounter
--- OUTSIDE RECORDS SUMMARY | 2025-10-09 12:45 | XMS_ITS | Encounter Summary ---
Author Organization [employer] Address [address] [place] [address] Care Team Providers Care Corporate Development Intern Name Role Phone Jordon Dennis DO Primary Care Provider Encounter Details Date Type Department Care Team (Latest Contact Info) Description 03/27/2003 Outpatient Historical [facility], [address] Chip Ruiz MD [address] [place] [address] [place] [address] OTHER SPECIFIED HYPOGLYCEMIA (Primary Dx) Social History Tobacco Use Types Packs/Day Years Used Date Smoking Tobacco: Never Assessed Comments Unknown Sex and Gender Information Value Date Recorded Sex Assigned at Female 08/29/2023 2:58 PM POWER ELECTRONICS RESEARCH ENGINEER Legal Sex Female 1:55 AM POWER ELECTRONICS RESEARCH ENGINEER Gender Identity Female 08/29/2023 2:58 PM POWER ELECTRONICS RESEARCH ENGINEER Sexual Orientation Straight 08/29/2023 2: 58 PM POWER ELECTRONICS RESEARCH ENGINEER documented as of this encounter Plan of Treatment Not on file documented as of this encounter Visit Diagnoses Diagnosis Other specified hypoglycemia- Primary documented in this encounter Additional Health Concerns Infection Onset Date Last Indicated Resolved Time R/O C. diff 02/28/2024 02/28/2024 02/29/2024 8:13 AM CDT documented as of this encounter Care Teams Corporate Development Intern Relationship Specialty Start Date End Date Jordon Dennis DO [address] [place] [address] PCP - General Family Practice 02/26/24 documented as of this encounter
--- OUTSIDE RECORDS SUMMARY | 2025-10-09 12:45 | XMS_ITS | Clinical Summary ---
Author Organization [facility] Address [address] [facility] Attn: [place] [address] Care Team Providers Care Nurse Specialist Name Role Phone Jeannie Jordon POZO Primary Care Provider [phone] Allergies Active Allergy Reactions Criticality Noted Date [...] hyperglycemia, with long-term current use of insulin ([facility]) Take 1 Tablet (25 mg) by [...] 08/30/2023 GERD (gastroesophageal reflux disease) History of NV (myocardial infarction) 08/30/2023 S/P coronary artery stent placement 08/30/2023 Chronic pansinusitis 08/30/2023 Breast asymmetry 08/30/2023 Abnormal screening mammogram 08/30/2023 Right groin pain 08/30/2023 Right hip pain 08/30/2023 Atherosclerosis of coronary artery of [place] 08/30/2023 History of pancreatitis 08/30/2023 [...] Sex Assigned at Female 08/29/2023 2:58 PM FURNACE AND WASH EQUIPMENT OPERATOR Legal Sex Female 1:55 AM FURNACE AND WASH EQUIPMENT OPERATOR Gender Identity Female 08/29/2023 2:58 PM FURNACE AND WASH EQUIPMENT OPERATOR Sexual Orientation Straight 08/29/2023 2: 58 PM FURNACE AND WASH EQUIPMENT OPERATOR Occupation Industry Job Start Date Job End [...] RATIO, RANDOM UR Routine 09/10/2023 8:08 AM FURNACE AND WASH EQUIPMENT OPERATOR MAMMO DIAG UNI RIGHT 3D EMILIA W OR WO CAD Routine 09/10/2023 7:15 AM FURNACE AND WASH EQUIPMENT OPERATOR Breast asymmetry Abnormal screening mammogram from Last 3 Months or Most Recently Relevant to Health Maintenance Results * (ABNORMAL) HEMOGLOBIN A1C (02/25/2024 4:48 PM CDT) HEMOGLOBIN A1C 10.6(H) <5.7 % 02/25/2024 5:42 PM CDT [facility]. AVG GLUCOSE, A1C 258 mg/dL 02/25/2024 5:42 PM CDT [facility] Blood Venipuncture / Unknown 02/25/2024 4:48 PM CDT 02/25/2024 5:10 PM CDT [facility] - 02/25/2024 5:42 PM CDT HGB A1C INTERPRETATION NORMAL: <5.7% PRE-DIABETES: 5.7 - 6.4% DIABETES: 6.5% OR GREATER us Michael Travis DO CHEMISTRY ORDERABLES Final R esult [facility] [employer] [facility]# [id number] 5 Wilfredo [facility] [place] [address] * LIPID PANEL (02/25/2024 4:48 PM CDT) CHOLESTEROL 140 <200 mg/dL 02/25/2024 5:45 PM CDT [facility] TRIGLYCERIDE 118 <150 mg/dL 02/25/2024 5:45 PM CDT [facility] HDL 41 40 - 59 mg/dL 02/25/2024 5:45 PM CDT [facility] LDL CALCULATED 75 <100 mg/dL 02/25/2024 5:45 PM CDT [facility] [employer] [facility] NON-HDL CHOLESTEROL 99 <130 mg/dL 02/25/2024 5:45 PM CDT [facility] Blood Venipuncture / Unknown 02/25/2024 4:48 PM CDT 02/25/2024 5:10 PM CDT [facility] - 02/25/2024 5:45 PM CDT TOTAL CHOLESTEROL [...] ORDERABLES Final R esult Performing Organization Address [facility]/ZIP Co de Phone Number [facility]# [id number] [address] [address] * (ABNORMAL) MICROALBUMIN/CREATININE RATIO, RANDOM UR (09/10/2023 8:08 AM FURNACE AND WASH EQUIPMENT OPERATOR) Creatinine, Urine 41 20 - 275 mg/dL [email or web address] MICROALBUMIN, URINE 4.3 See Note: mg/dL [...] category. FASTING:YES FASTING: YES Test Performed at: [facility] [address] [employer] [id number] You Randhawa MD 09/10/2023 8:08 AM FURNACE AND WASH EQUIPMENT OPERATOR 09/10/2023 8:10 AM FURNACE AND WASH EQUIPMENT OPERATOR us Nelida Timmons LOAN COORDINATOR URINE ORDERABLES Final Re sult Performing Organization Address City/[facility]/ZIP Co de Phone Number [facility] [phone] [facility] [address] [place] [address] * MAMMO DIAG UNI RIGHT 3D EMILIA W OR WO CAD (09/10/2023 7:15 AM FURNACE AND WASH EQUIPMENT OPERATOR) Anatomical Region Laterality Modality Breast Right Mammography 09/10/2023 7:15 AM FURNACE AND WASH EQUIPMENT OPERATOR Impressions 09/10/2023 7:58 AM FURNACE AND WASH EQUIPMENT OPERATOR IMPRESSION: No evidence of malignancy in the right breast. Finding on screening mammogram reflected superimposition of normal breast tissue. OVERALL FINAL ASSESSMENT: BI-RADS Category 1: Negative mammogram. RECOMMENDATION: Bilateral screening mammogram in 1 year. Findings discussed with the patient. DICTATION LOCATION: [facility] 09/10/2023 7:58 AM FURNACE AND WASH EQUIPMENT OPERATOR RIGHT DIGITAL DIAGNOSTIC MAMMOGRAM WITH TOMOSYNTHESIS AND [...] DICTATION LOCATION: [facility] Nelida Frias Horosalva LOAN COORDINATOR MAMMO ORDERABLES Final Re sult from Last 3 Months or Most Recently Relevant to Health Maintenance Insurance [employer] OPEN ACCESS HMO RX [employer] RX Member Subscriber Plan / Payer (Ef fective 2023-Present) Name:Johnson Saunders Relation to Subscriber:Self Name:Wade Johnson Martin Subscriber ID:Not on file Payer ID:Not on file Group ID:[id number] Type:RX Commercial Address: [address] [id number] Advance Directives For more information, please contact: [phone] * Full Code (Latest Code Status on File) Date Activated Date Inactivated Comments 02/27/2024 6:57 PM 03/05/2024 5:05 PM * Full Code Date Activated Date Inactivated Comments 02/25/2024 3:28 PM 02/27/2024 6:36 PM * Full Code Date Activated Date Inactivated Comments 09/11/2023 1:30 PM 09/13/2023 3:38 PM Care Teams Nurse Specialist Relationship Specialty Start Date End Date Jordon Dennis DO [address] [place] [address] PCP - General Family Practice 02/26/24
--- OUTSIDE RECORDS SUMMARY | 2025-10-09 12:45 | XMS_ITS | Encounter Summary ---
Author Organization [employer] [facility] Address [address] [place] [address] Care Team Providers Care Clinical Medical Assistant Name Role Phone Jordon Dennis DO Primary Care Provider [phone] Encounter Details Date Type Department Care Team (Late st Contact Info) Description 03/27/2003 Outpatient Historical [facility] Internal Medicine [address] [place] [address] Chip Ruiz MD [address] [facility] [address] [place] [address] Social History Tobacco Use Types Packs/Day Years Used Date Smoking Tobacco: Never Assessed Comments Unknown Sex and Gender Information Value Date Recorded Sex Assigned at Female 08/29/2023 2:58 PM ATM MANAGER Legal Sex Female 1:55 AM ATM MANAGER Gender Identity Female 08/29/2023 2:58 PM ATM MANAGER Sexual Orientation Straight 08/29/2023 2: 58 PM ATM MANAGER documented as of this encounter Plan of Treatment Not on file documented as of this encounter Visit Diagnoses Not on filedocumented in this encounter Additional Health Concerns Infection Onset Date Last Indicated Resolved Time R/O C. diff 02/28/2024 02/28/2024 02/29/2024 8:13 AM CDT documented as of this encounter Care Teams Clinical Medical Assistant Relationship Specialty Start Date End Date Jordon Dennis DO [address] [place] [address] PCP - General Family Practice 02/26/24 documented as of this encounter
--- OUTSIDE RECORDS SUMMARY | 2025-10-09 12:45 | XMS_ITS | Clinical Summary ---
Author Organization [facility] Address [address] [place] [address] Care Team Providers Care Border Measurer Name Role Phone Radha Schaeffer MD Primary Care Provid er Lorena Larson MD Unavailable [phone] Allergies Active Allergy Reactions Criticality Noted Date [...] 09/19/2022 Assessment & Plan (09/19/2022 12:46 PM DRUM STENCILER): BMI: Healthy diet. An optimal BMI (body mass index) is between 20 and 25. Vitamin D deficiency 04/26/2022 Assessment & Plan (04/26/2022 11:58 AM CDT): Recheck level Coronary artery disease invo lving [place] coronary artery of [place] heart without angina pectoris 04/26/2022 Assessment & [...] 04/26/2022 Assessment & Plan (09/19/2022 12:43 PM DRUM STENCILER): Condition is stable. Continue prescribed medications, risks [...] ASA Assessment & Plan (09/19/2022 12:44 PM DRUM STENCILER): Condition is stable. Continue prescribed medications, risks [...] had 5th stint placed. 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 Under care of Endocrinology at [facility]. Needs to schedule follow-up appointment Assessment [...] others. Assessment & Plan (10/31/2021 8:14 AM DRUM STENCILER): Chronic stable continue Celexa 40 mg daily [...] 03/01/2018 Assessment & Plan (09/19/2022 12:45 PM DRUM STENCILER): Condition is stable. Continue prescribed medications, risks [...] diet Assessment & Plan (10/31/2021 8:13 AM DRUM STENCILER): Chronic stable continue lisinopril 20 mg daily and low-salt diet Assessment & Plan (05/26/2019 12:36 PM CDT): Diabetes completely out of control Pt non compliant A1c 14 at [facility] Not taking any of her meds [...] 03/16/2022 Assessment & Plan (10/31/2021 8:13 AM DRUM STENCILER): Chronic stable continue omeprazole 20 mg daily [...] decision),11/22/2018(Deferred: Patient Refused),07/22/2018(Deferred: Patient Refused),07/22/2017(Deferred: Patient Refused) [employer] SARS-CoV-2 Vaccination 04/14/2022( Deferred: Patient decision) [...] on file Legal Sex Female 7:06 PM DRUM STENCILER Gender Identity Not on file Sexual Orientation Not on file Last Filed Vital Signs Vital Sign Reading Time Taken Comments Blood Pressure 128/92 11/30/2022 10:16 AM DRUM STENCILER Pulse 89 11/30/2022 10:16 AM DRUM STENCILER Temperature 36.7 C (98.1 F) 11/30/2022 10:16 AM DRUM STENCILER Respiratory Rate 16 10/04/2022 5:00 PM DRUM STENCILER Oxygen Saturation 98% 11/30/2022 10:16 AM DRUM STENCILER Inhaled Oxygen Concentration - - Weight 84.4 kg (186 lb) 11/30/2022 10:16 AM DRUM STENCILER Height 157.5 cm (5' 2) 11/30/2022 10:16 AM DRUM STENCILER Body Mass Index 34.02 11/30/2022 10:16 AM DRUM STENCILER Plan of Treatment Health Maintenance Due Date [...] Diagnosis Comments EGFR Routine 09/19/2022 10:40 AM DRUM STENCILER Controlled type 2 diabetes mellitus with other circulatory complication, with long-term current use of insulin (HCC) HEMOGLOBIN A1C Routine 09/19/2022 10:40 AM DRUM STENCILER Controlled type 2 diabetes mellitus with other circulatory complication, with long-term current use of insulin (HCC) ALBUMIN CREATININE RATIO, URINE Routine 09/19/2022 10:40 AM DRUM STENCILER Controlled type 2 diabetes mellitus with other [...] Maintenance Results * eGFR (09/19/2022 10:40 AM DRUM STENCILER) eGFR 78 mL/min/1. 73 m2 [place] [...] reviewed 2021. Blood 09/19/2022 10:4 0 AM DRUM STENCILER 09/19/2022 3:03 PM DRUM STENCILER Diana Boykin NP LAB BLOOD ORDERABLES Final R [facility] Performing Organization Address [facility] Co de Phone Number [facility] [address] [facility] [place] [address] * (ABNORMAL) Albumin Creatinine Ratio, Urine (09/19/2022 10:40 AM DRUM STENCILER) Albumin Ur 257.1 mg/L [facility] Comment: Interpretive Data No reference range established. Current interpretive data was last revised 2019. Creatinine Ur 46.7 mg/dL [facility] Comment: Interpretive Data No reference range established. Current interpretive data was last revised 2019. Albumin Creatinine Ratio, Ur 551(H) 1 - 29 mg/g [facility] Urine 09/19/2022 10:4 0 AM DRUM STENCILER 09/19/2022 2:49 PM DRUM STENCILER Diana Boykin MEDICAL ASSISTANT SECRETARY LAB URINE ORDERABLES Final [facility] Organization Address [facility] Co de Phone Number [facility] [address] [facility] [place] [address] * (ABNORMAL) Hemoglobin A1c (09/19/2022 10:40 AM DRUM STENCILER) Hgb A1C 13.3(H) 4.0 - 5.6 % [facility] Estimated Average Glucose 335 mg/dL [facility] Comment: The ADA recommends reporting an estimated Average Glucose (eAG) with all Hemoglobin A1c results using the equation derived from a study of 507 normal and diabetic adults. Minority populations were underrepresented and children were not included. (Diabetes Care 31:2945-2206, 2008). The eAG is not equivalent to a fasting glucose. Blood 09/19/2022 10:4 0 AM DRUM STENCILER 09/19/2022 2:49 PM DRUM STENCILER us Diana Boykin NP LAB BLOOD [place] [address] [place] [facility] [place] [address] * Screening Mammogram Bilateral [place] (03/23/2021 [...] to a prior imaging study performed at [facility] on 12/04/2018. MAMMOGRAM FINDINGS: Bilateral CC [...] to a prior imaging study performed at [facility] on 12/04/2018. MAMMOGRAM FINDINGS: Bilateral CC [...] breast cancer. BI-RADS Category 1: Negative Result [facility] Penny Johnson NP IMG MAMMO [...] CHOICE ANTHEM ACCESS CHOICE ANTHEM ACCESS CHOICE [facility] [employer]AN Member Subscriber Plan / Payer (Ef fective 2023-Present) Name:Shani Liu Relation to Subscriber:Self Name:Shani Liu Payer ID:[id number] (NAIC) Type:[facility] HMO/PPO Address: [address] [place] [id number] Care Teams Border Measurer Relationship Specialty Start Date End Date Radha Schaeffer MD [address] [facility] [address] [place] [address] PCP - General Family Medicine 04/12/22 Lorena Larson MD [address] [place] [address] Consulting Physician Obstetrics and Gynecology 04/19/23
--- OUTSIDE RECORDS SUMMARY | 2025-10-09 12:45 | XMS_ITS | Encounter Summary ---
Author Organization [employer] [facility] Address [address] [place] [address] Care Team Providers Care Electric Blasting Cap Assembler Name Role Phone Jordon Dennis DO Primary Care Provider [phone] Encounter Details Date Type Department Care Team (Late st Contact Info) Description 03/27/2003 Outpatient Historical [facility] Internal Medicine [address] [place] [address] Chip Ruiz MD [address] [facility] [address] [place] [address] Social History Tobacco Use Types Packs/Day Years Used Date Smoking Tobacco: Never Assessed Comments Unknown Sex and Gender Information Value Date Recorded Sex Assigned at Female 08/29/2023 2:58 PM NURSES' ASSOCIATION EXECUTIVE DIRECTOR Legal Sex Female 1:55 AM NURSES' ASSOCIATION EXECUTIVE DIRECTOR Gender Identity Female 08/29/2023 2:58 PM NURSES' ASSOCIATION EXECUTIVE DIRECTOR Sexual Orientation Straight 08/29/2023 2: 58 PM NURSES' ASSOCIATION EXECUTIVE DIRECTOR documented as of this encounter Plan of Treatment Not on file documented as of this encounter Visit Diagnoses Not on filedocumented in this encounter Additional Health Concerns Infection Onset Date Last Indicated Resolved Time R/O C. diff 02/28/2024 02/28/2024 02/29/2024 8:13 AM CDT documented as of this encounter Care Teams Electric Blasting Cap Assembler Relationship Specialty Start Date End Date Jordon Dennis DO [address] [place] [address] PCP - General Family Practice 02/26/24 documented as of this encounter
--- OUTSIDE RECORDS SUMMARY | 2025-10-09 12:45 | XMS_ITS | Encounter Summary ---
Author Organization [employer] [facility] Address [address] [place] [address] Care Team Providers Care Waterside Worker Name Role Phone Jordon Dennis DO Primary Care Provider [phone] Encounter Details Date Type Department Care Team (Late st Contact Info) Description 03/27/2003 Outpatient Historical [facility] Internal Medicine [address] [place] [address] Chip Ruiz MD [address] [facility] [address] [place] [address] Social History Tobacco Use Types Packs/Day Years Used Date Smoking Tobacco: Never Assessed Comments Unknown Sex and Gender Information Value Date Recorded Sex Assigned at Female 08/29/2023 2:58 PM PEDIATRICIAN MANAGING PARTNER Legal Sex Female 1:55 AM PEDIATRICIAN MANAGING PARTNER Gender Identity Female 08/29/2023 2:58 PM PEDIATRICIAN MANAGING PARTNER Sexual Orientation Straight 08/29/2023 2: 58 PM PEDIATRICIAN MANAGING PARTNER documented as of this encounter Plan of Treatment Not on file documented as of this encounter Visit Diagnoses Not on filedocumented in this encounter Additional Health Concerns Infection Onset Date Last Indicated Resolved Time R/O C. diff 02/28/2024 02/28/2024 02/29/2024 8:13 AM CDT documented as of this encounter Care Teams Waterside Worker Relationship Specialty Start Date End Date Jordon Dennis DO [address] [place] [address] PCP - General Family Practice 02/26/24 documented as of this encounter
--- OUTSIDE RECORDS SUMMARY | 2025-10-09 12:45 | XMS_ITS | Encounter Summary ---
Author Organization [employer] [facility] Address [address] [place] [address] Care Team Providers Care Gut Sorter Name Role Phone Jordon Dennis DO Primary Care Provider [phone] Encounter Details Date Type Department Care Team (Late st Contact Info) Description 05/08/2003 Outpatient Historical [facility] Internal Medicine [address] [place] [address] Chip Ruiz MD [address] [facility] [address] [place] [address] Social History Tobacco Use Types Packs/Day Years Used Date Smoking Tobacco: Never Assessed Comments Unknown Sex and Gender Information Value Date Recorded Sex Assigned at Female 08/29/2023 2:58 PM REORDERING CLERK Legal Sex Female 1:55 AM REORDERING CLERK Gender Identity Female 08/29/2023 2:58 PM REORDERING CLERK Sexual Orientation Straight 08/29/2023 2: 58 PM REORDERING CLERK documented as of this encounter Plan of Treatment Not on file documented as of this encounter Visit Diagnoses Not on filedocumented in this encounter Additional Health Concerns Infection Onset Date Last Indicated Resolved Time R/O C. diff 02/28/2024 02/28/2024 02/29/2024 8:13 AM CDT documented as of this encounter Care Teams Gut Sorter Relationship Specialty Start Date End Date Jordon Dennis DO [address] [place] [address] PCP - General Family Practice 02/26/24 documented as of this encounter
--- OUTSIDE RECORDS SUMMARY | 2025-10-09 12:45 | XMS_ITS | Encounter Summary ---
Author Organization [employer] Address [address] [place] [address] Care Team Providers Care Plastic Sewer Name Role Phone Jordon Dennis DO Primary Care Provider [phone] Encounter Details Date Type Department Care Team (Late st Contact Info) Description 03/27/2003 Outpatient Historical [facility] Internal Medicine [address] [place] [address] Chip Ruiz MD [address] [facility] [address] [place] [address] Social History Tobacco Use Types Packs/Day Years Used Date Smoking Tobacco: Never Assessed Comments Unknown Sex and Gender Information Value Date Recorded Sex Assigned at Female 08/29/2023 2:58 PM AGRICULTURE ENGINEER Legal Sex Female 1:55 AM AGRICULTURE ENGINEER Gender Identity Female 08/29/2023 2:58 PM AGRICULTURE ENGINEER Sexual Orientation Straight 08/29/2023 2: 58 PM AGRICULTURE ENGINEER documented as of this encounter Plan of Treatment Not on file documented as of this encounter Visit Diagnoses Not on filedocumented in this encounter Additional Health Concerns Infection Onset Date Last Indicated Resolved Time R/O C. diff 02/28/2024 02/28/2024 02/29/2024 8:13 AM CDT documented as of this encounter Care Teams Plastic Sewer Relationship Specialty Start Date End Date Jordon Dennis DO [address] [place] [address] PCP - General Family Practice 02/26/24 documented as of this encounter
== END 2025-10-09 12:42 | disposition home or self-care (01) ==
PROVIDERS: Visit Provider Orthopaedic Surgery
DX: I73.9 Peripheral vascular disease, unspecified (principal)
CPT/HCPCS: 93922